=== PATIENT | male | born 1940 | race Caucasian/White ===

== ENCOUNTER 2024-03-29 22:31 | Inpatient (IN) | payer MEDICARE, BC, SELFPAY ==
[2024-03-29 18:08] VITALS: BP 157/91
[2024-03-29 18:19] LABS: Glucose - Point of Care 238 mg/dl (70-99)
[2024-03-29 18:48] LABS: % Basophils 0.3 % (0-2); % Immature Granulocytes 0.4 % (0-0.5); % Lymphocytes 5.3 % (20.5-51.1); % Monocytes 5.3 % (1.7-9.3); % Neutrophils 88.7 % (42.2-75.2); Absolute Lymphocytes 0.6 10^3/uL (1.2-3.4); Absolute Monocytes 0.6 10^3/uL (0.1-0.6); Absolute Neutrophils 9.8 10^3/uL (1.4-6.5); Hematocrit 32.9 % (39.0-52.0); Hemoglobin 11.3 g/dL (13.0-18.0); Mean Corp Hgb Conc. 34.3 g/dL (33.0-37.0); Mean Corpuscular Volume 90.4 fL (80.0-94.0); Nucleated Red Blood Cells % 0 % (-); Platelet Count 128 10^3/uL (130-400); Red Blood Cell Count 3.64 10^6/uL (4.70-6.10); Red Cell Dist. Width 13.4 % (11.5-14.5); White Blood Cell Count 11.1 10^3/uL (4.8-10.8)
[2024-03-29 18:49] LABS: Urine Albumin 1+ (Neg - Trace); Urine Bilirubin Negative (Negative); Urine Character Clear (Clear); Urine Color Yellow; Urine Glucose Trace (Negative); Urine Ketone 1+ (Negative); Urine Leukocyte Negative (Negative); Urine Nitrite Negative (Negative); Urine Occult Blood 3+ (Negative); Urine Urobilinogen Negative (Neg - 1+)
[2024-03-29 19:03] LABS: ALT (SGPT) 30 U/L (0-50); AST (SGOT) 43 U/L (17-59); Albumin 4.1 g/dl (3.5-5.0); Alkaline Phosphatase 72 U/L (38-126); Blood Urea Nitrogen 31 mg/dl (9-20); Carbon Dioxide 21 mmol/L (22-30); Chloride 99 mmol/L (98-107); Glucose 230 mg/dl (70-99); Lactic Acid 5.1 mmol/L (0.7-2.0); Potassium 4.2 mmol/L (3.5-5.1); Sodium 134 mmol/L (135-145); Total Bilirubin 1.1 mg/dl (0.2-1.3); Total Protein 7.1 g/dl (6.3-8.2); Urine Red Blood Cell 0-2 /HPF (0-2); Urine White Cell 0-2 /HPF (0-5); eGFR 49.56
--- NOTE | 2024-03-29 19:06 | ED.GENMED ---
History of Present Illness
General
Chief Complaint: Fever
Source: patient and spouse
Exam Limitations: none
Time Seen by Provider: 03/29/24 18:27
Nursing documentation reviewed up to this point in time: agreed with
History of Present Illness
History of Present Illness:
The patient is an 84-year-old man who reports that he felt dizzy and fell onto the floor. He denies hitting his head. He denies any injury from the fall. He denies neck and back pain. Patient denies chest pain. His reports that the patient
has been more sleepy and eating less than usual for about 2 days. Patient found to have a fever in the emergency department. Patient appears short of breath but states that this is how he always breathes. He denies abdominal pain, nausea,
vomiting and diarrhea. He denies headache and sore throat. He denies sick contacts.
Past History
Past History
ED Past Medical History: CAD, HTN, NIDDM and Other (Aortic stenosis)
ED Past Surgical History: Orthopedic (Arm surgery)
Social History
Tobacco: Non-smoker
Alcohol: None
Drug: None
Personal:
Living: with family
Employment: Retired
Family History
Family History: Diabetes
Review of Systems
Review of Systems
Allergies reviewed?: Yes
All Other Systems: ROS reviewed and negative except as documented in HPI and ROS
Constitutional: Reports fever and fatigue
EENT: Reports no symptoms
Respiratory: Reports no symptoms
Cardiac: Reports no symptoms
ABD/GI: Reports anorexia
: Reports no symptoms
Musculoskeletal: Reports no symptoms
Skin: Reports no symptoms
Neurological: Reports dizzy
Endocrine: Reports no symptoms
Hematologic/Lymphatic: Reports no symptoms
Psychiatric: Reports no symptoms
Phy Exam
Physical Exam
Physical Exam:
Physical Exam
General: no apparent distress, not acutely ill. Atraumatic appearing face and head
Neck: supple. no meningeal signs. normal psoterior pharynx, nontender C-spine
Heart: Tachycardic
Lungs: Mild tachypnea. Decreased breath sounds bilaterally
Abdomen: normal bowel sounds. not tender. no CVAT
Neuro: alert and orientedx3. no focal neurological deficits
Skin: no rash
Psychiatric: well kept. interactive and cooperative
Extremities: no edema. no calf tenderness. negative homans. good distal pulses
Course
Orders/Labs/Results
Orders:
Orders
03/29/24 18:27
Acetaminophen [Tylenol] 1,000 mg .ROUTE .STK-MED ONE
03/29/24 18:38
Electrocardiogram (*1) Urgent
Reason for Study: Other
Other Reason for Exam: Possible Sepsis
Cardiac Monitoring- Treatment ONCE
EKG- Treatment ONCE
IV Insert/Care/Rem.- Treatment PRN
Straight cath- Treatment ONCE
O2 Therapy [RESP] Urgent
Titrate/Wean O2 to maintain O2 sat greater than (%): 93
Special Instructions: TO MAINTAIN CONTINUOUS O2 SATS > OR = 93%
Pulse Ox/cont/shift [RESP] Urgent
Quantity: 1
Special Instructions: CONTINUOUS
03/29/24 18:41
Complete Blood Count/With Diff Urgent
Comprehensive Metabolic Panel Urgent
Lactic Acid Q4H
Comment: ON ICE, CANCEL 2ND ORDER IF FIRST LACTIC ACID LEVEL <2
Urinalysis Reflex To Culture Urgent
Date Specimen was Collected: 03/29/24
Time Specimen was Collected: 18:38
Urine Microscopic Reflex Cult Urgent
Blood Culture Q30M
FLORA Source: Blood/Venous
Specimen Description:
Comment: FROM 2 SEPARATE SITES
Blood Culture Q30M
FLORA Source: Blood/Venous
Specimen Description:
Comment: FROM 2 SEPARATE SITES
03/29/24 19:00
CR Chest - 2 Views Urgent
Comment:
Reason For Exam: fever
03/29/24 19:38
0.9% Sodium Chloride 1000 ml [Nss] 2,000 ml IV BOLUS
03/29/24 19:[address] Non Medication Order As Directed
Physician Order: height/weight/BMI
Above order entered?: Yes
03/29/24 19:53
NT-proBNP Urgent
Troponin I Urgent
03/29/24 21:45
COVID-19 Antigen Urgent
Source: Nasal Swab
Influenza A+B Rapid Molecular Urgent
FLORA Source: Nasal Swab
Specimen Description:
03/29/24 21:51
CRP [C-Reactive Protein] Routine
ESR [Erythrocyte Sed Rate] Routine
03/29/24 22:00
Flush (0.9% Sodium Chloride) [Flush (Nss)] See Dose Instructions IV PER PROTOCOL
03/29/24 22:21
Admit/Transfer Patient As Directed
Co-Sign Provider:
Level of Care: Inpatient admission
Assign to:: IMU- Intermediate Care
Physician / Group: [email or web address]
Diagnosis: SIRS suspect severe sepsis of unclear origin, NIMI, MARCOS
Reason for Hospitalization: SIRS suspect severe sepsis of unclear origin, NIMI, MARCOS
Expected length of stay greater than two midnights?: Yes
ELOS- Estimated Length of Stay in days: 5
I certify the patient meets the requirements for IP care: Yes
03/29/24 22:23
Code Status As Directed
Resuscitation Status: Full Code
Vancomycin [Vancocin] 2,000 mg 0.9% Sodium Chloride 500 ml [Nss] 500 ml IV NOW
03/29/24 22:24
Piperacillin/Tazo 4.5 Gram [Zosyn] 4.5 gram in 100 ml IV NOW
03/29/24 22:36
Lactic Acid Q4H
Comment: ON ICE, CANCEL 2ND ORDER IF FIRST LACTIC ACID LEVEL <2
Abnormal Lab Results
03/29/24 03/29/24 03/29/24
18:18 18:41 19:53
WBC 11.1 H 10^3/uL
(4.8-10.8)
RBC 3.64 L 10^6/uL
(4.70-6.10)
Hgb 11.3 L g/dL
(13.0-18.0)
Hct 32.9 L %
(39.0-52.0)
Plt Count 128 L 10^3/uL
(130-400)
Absolute Neuts (auto) 9.8 H 10^3/uL
(1.4-6.5)
Absolute Lymphs (auto) 0.6 L 10^3/uL
(1.2-3.4)
Neutrophils % 88.7 H %
(42.2-75.2)
Lymphocytes % 5.3 L %
(20.5-51.1)
Sodium 134 L mmol/L
(135-145)
Carbon Dioxide 21 L mmol/L
(22-30)
BUN 31 H mg/dl
(9-20)
Creatinine 1.4 H mg/dL
(0.7-1.3)
Glucose 230 H mg/dl
(70-99)
Lactic Acid 5.1 H* mmol/L
(0.7-2.0)
Troponin I 0.236 H* ng/ml
Urine Ketones 1+ A
(Negative)
Ur Occult Blood Reflex 3+ A
(Negative)
Urine Glucose Trace A
(Negative)
Urine Albumin (Reflex) 1+ A
(Neg - Trace)
POC Glucose 238 H mg/dl
(70-99)
03/29/24 18:41
03/29/24 18:41
Vital Signs
Initial and Last Documented VS:
Initial Vital Signs
Temp Pulse Resp BP Pulse Ox
103.0 F H 105 28 157/91 93
03/29/24 18:08 03/29/24 18:08 03/29/24 18:08 03/29/24 18:08 03/29/24 18:08
Last Documented Vital Signs
Temp Pulse Resp BP Pulse Ox
103.0 F H 81 24 119/51 93
03/29/24 18:08 03/29/24 22:15 03/29/24 22:15 03/29/24 20:40 03/29/24 22:15
MDM/Problems Addressed
Differential Diagnosis Includes:
Sepsis from UTI, pneumonia, viral illness
MDM/Problems Addressed:
Patient presents with increased sleepiness and fever that is acute
Chronic conditions affecting care: HTN
Acute Exacerbation and/or Progression of Chronic Illness: HTN
*Radiology
Radiology exam reviewed: preliminary read by ED provider (Chest x-ray read by me. No acute disease) and radiology read reviewed
*Pulse Oximetry
Patient hypoxic: no
*EKG
Interpreted by ED Provider?: Yes
Interpretation: abnormal
Comparison EKG: changes noted
Rate: tachycardiac
Rhythm: sinus
[place]: left axis deviation
Interval: normal interval
QRS Pattern: left bundle branch block and left vent hypertrophy
Ischemia: non-specific ST changes
*Tray Filler Interpretation
Rate: tachycardiac
Interpretation: abnormal
Rhythm: sinus
*Critical Care Note
Total Time (30-74mins, 75-104mins- exclusive of procedures): 35 minutes
comment:
35 minutes of critical care given to the patient including frequent reassessments of his heart rate, blood pressure, reviewing his lab work, chest x-ray and counseling the patient and his
Data Reviewed
Review of Other/Old Records Reveals: Discharge Summary ( discharge summary reviewed from 06/2021 which shows patient has a history of left bundle branch block)
Source: patient and family
ED Attending Note
-
Portions of this chart may have been created with voice recognition software.� Occasional wrong word or��sound alike� substitutions may have occurred due to the inherent limitations of voice recognition software.
Discharge Plan
Departure
Patient Disposition: Admit
Date of Disposition: 03/29/24
Time of Disposition: 21:32
Admit to: Telemetry
Presentation/result/management discussed w/ accepting MD/DO: Hospitalist
Patient with high blood pressure during this ER visit?: Yes
Condition: Good
Covid-19: Negative COVID-19
Discharge Problem:
Acute febrile illness, Acidosis, lactic, Elevated troponin
Interventions
Interventions:
*Risk Screen - Suicide Last Done: 03/29/24 18:40
*General Assessment Last Done: 03/29/24 18:08
*Neglect/Abuse Screening Last Done: 03/29/24 18:40
ED- Fall Risk Assessment Last Done: 03/29/24 18:40
*ED COVID-19 Vaccine History Last Done: 03/29/24 18:08
ED- Neurological Assessment Last Done: 03/29/24 18:40
ED-Skin Assessment Last Done: 03/29/24 18:40
[2024-03-29 20:22] VITALS: BMI 34.6
[2024-03-29 20:26] LABS: NT-proBNP 958 pg/ml; Troponin I 0.236 ng/ml
[2024-03-29 20:40] VITALS: BP 119/51
[2024-03-29] MEDS: NSS 2000 IV (20:56)
--- NOTE | 2024-03-29 22:10 | HPS.HSE ---
Family Physician
-
Family Physician: Homar Mcneill
Chief Complaint
-
Dizziness and fall and sleepiness
History of Present Illness
84M HX CAD, T2DM, HTN , TAVR seen at ER for fall and diziness at home.
Evaluation of fall and dizziness at home.
- denied head strike
- per , patient has been lethargic and decrease PO intake
At ER
T max 103 POx 91 - 93
Unremarkable CXR
Unremarkable UA
BCx tomes two sent
ROS
He denies abdominal pain, nausea, vomiting and diarrhea.
Medical History
Past Medical History
Past Medical History: Reports CAD, HTN, Hypercholesterolemia, NIDDM and Valvular Disease (29 Evolut TAVR with peak/mean gradients of 26/13 mmHg, respectively. AV Dimensionless Index is 0.5. Mild paravalvular aortic regurgitation. )
Past Surgical History: Reports Cardiac (29 Evolut TAVR with peak/mean gradients of 26/13 mmHg, respectively. AV Dimensionless Index is 0.5. ) and Orthopedic
Social History
Tobacco: Non-smoker
Alcohol: None
Personal:
Living: With Family
Family History
Family History: Diabetes
Allergies / Home Medications
Allergies reflects when Allergies were last updated in [employer].
Home Medications with original date entered in [employer]
Allergy/Medication List:
Allergies
Allergy/AdvReac Type Severity Reaction Status Date / Time
Tetanus Vaccines and Toxoid Allergy Swelling Verified 03/29/24 18:13
Home Medications
aspirin 81 mg tablet,delayed release 81 mg PO DAILY Blood clot prevention/tx 01/02/11
atorvastatin 40 mg tablet 40 mg PO QPM High cholesterol 10/11/17
chlorthalidone 25 mg tablet 25 mg PO QPM Antihypertensive; 02/10/21
losartan 100 mg tablet (Cozaar) 100 mg PO DAILY Blood pressure 02/10/21
vitamin K2 100 mcg capsule 100 mcg PO DAILY Supplement 02/10/21
metformin 500 mg tablet,extended release 24 hr 1,000 mg (2 x 500 mg) PO BID@0800,1700 Diabetes ##0 07/03/21
amlodipine 5 mg tablet 5 mg PO DAILY 03/29/24
carvedilol 3.125 mg tablet 3.125 mg PO BID 03/29/24
cholecalciferol (vitamin D3) 50 mcg (2,000 unit) tablet 50 mcg PO DAILY 03/29/24
cyanocobalamin (vitamin B-12) 1,000 mcg tablet 1,000 mcg PO DAILY 03/29/24
multivitamin 1 tab PO DAILY 03/29/24
vitamin A 2,400 mcg capsule 2,400 mcg PO DAILY 03/29/24
zinc sulfate 50 mg zinc (220 mg) tablet 50 mg PO DAILY 03/29/24
Review of Systems
-
Constitutional: Reports Fever and Fatigue
EENT: Reports No Symptoms
Respiratory: Reports No Symptoms
Cardiac: Reports No Symptoms
Abdomen/GI: Reports No Symptoms
: Reports No Symptoms
Musculoskeletal: Reports No Symptoms
Skin: Reports No Symptoms
Neurological: Reports Dizzy
Endocrine: Reports No Symptoms
Hematologic/Lymphatic: Reports No Symptoms
Psych: Reports Other (lethargic )
Physical Exam
Vital Signs
Vital Signs
Temp Pulse Resp BP Pulse Ox
103.0 F H 88 24 119/51 93
03/29/24 18:08 03/29/24 20:45 03/29/24 20:45 03/29/24 20:40 03/29/24 20:45
Physical Exam
General: Well Developed, Well Nourished, No Apparent Distress, Comfortable and Conversant; No Respiratory Distress or Pain
HEENT: Anicteric and Moist mucous membranes
Respiratory: Clear
Cardiac: S1/S2 and Regular Rhythm
Breast: Deferred by me
GI: Soft, Non Tender, Non Distended and Normal Bowel Sounds
Rectal: Deferred by Provider
Genito-urinary: Deferred by me
Musculoskeletal: Edema, Right Upper Extremity and Edema, Left Lower Extremity
Skin: Warm and Dry; No Rash
Neuro: AO x 3
Psych: Calm
Laboratory Results
-
03/29/24 18:41
03/29/24 18:41
Laboratory Results
Lactic Acid 5.1 mmol/L (0.7-2.0) H* 03/29/24 18:41
Total Bilirubin 1.1 mg/dl (0.2-1.3) 03/29/24 18:41
AST 43 U/L (17-59) 03/29/24 18:41
ALT 30 U/L (0-50) 03/29/24 18:41
Alkaline Phosphatase 72 U/L (38-126) 03/29/24 18:41
Troponin I 0.236 ng/ml H* 03/29/24 19:53
Data Reviewed
-
Diagnostic Radiology: Report Reviewed by me
Medical Tests (Nuc Med, Echo, EKG etc): Report Reviewed by me
Lab Data: Labs Reviewed by me
Old Records: Reviewed
Impression/Plan
-
Reviewed VS: T 103 HR 88 BP 119/50 RR24 POx 91 - 93
Data
WCC 11.1
Hgb 11.3 - baseline is mid 10s
Plt 128 - baseline is normal
Na 134
CO2 21
BUN 31
Cr 1.4 - baseline is 1.1 - 1.3
e GFR 49
BG 230
LA 5.1
Nl LFts
TPNI 0.236
pro BNP 958
UA is unbearable
BCx sent
Flu and Covid are pending
03/29/24 CXR:
Low lung volumes.
No focal parenchymal opacification to suggest pneumonia.
EKG report
UNUSUAL P AXIS, POSSIBLE ECTOPIC ATRIAL TACHYCARDIA
LEFT AXIS DEVIATION
LEFT BUNDLE BRANCH BLOCK
ABNORMAL ECG
WHEN COMPARED WITH ECG OF 31-JUL-2021 08:20,
ECTOPIC ATRIAL RHYTHM HAS REPLACED SINUS RHYTHM
LEFT BUNDLE BRANCH BLOCK IS NOW PRESENT
12/16/22 ECHO
LVEF 61
Mild MR
29 Evolut TAVR with peak/mean gradients of 26/13 mmHg, respectively. AV Dimensionless Index is 0.5. Mild paravalvular aortic regurgitation. Compared to the previous echo from December 2021, there is no significant change.
NO PRIOR hospitalist admission:
ASSESSMENT & PLAN
Pending Rx reconciliation
Eval for severe sepsis with LA 5
SIRS picture but unclear origin DDx: acute viral illness, Endocarditis, occult PNA
Associated mild thrombocytopenia due to severe sepsis
- associated with acute hypoactive encephalopathy
- UA is unbearable
- CXR is unremarkable
- BCx x2
- check Covid
- check ESR and CRP
- held any anti HTN Meds
- LR IVF
- Empiric IV Vanco and Zosyn
- fall precaution
- ID consult
Lethargic acute encephalopathy due to sepsis , MARCOS
- fall precaution
- Observe MS with Tx of sepsis
MARCOS due to sepsis
- LR IVF
- Trend Cr
- Held chlorthalidone ,Losartan and Carvedilol
- Trend Cr
Significant TPNI elevation : NIMI vs NSTEMI
Ectopic AT per EKG
Denied CP
HX CAD with single stent
HLD
-cont CLERICAL SUPPORT SPECIALIST baby ASA and Statin
- DCA card consult
HX valvular heart dz
29 Evolut TAVR with peak/mean gradients of 26/13 mmHg, respectively.
AV Dimensionless Index is 0.5.
Mild paravalvular aortic regurgitation.
- await Card evaluation
Realtive hypotension due to sepssi
essential HTN
- IVF
-Held Losartan and Carvedilol
NIDDM
- held Metformin
- add ISS low
DVT Px: LMWH
Code: Full code
IMU
[2024-03-29 22:11] LABS: COVID-19 Antigen Negative (Negative)
[2024-03-29 22:57] LABS: Lactic Acid 2.1 mmol/L (0.7-2.0)
[2024-03-29 23:00] VITALS: BP 132/63
[2024-03-29 23:24] VITALS: BP 120/67
--- NOTE | 2024-03-29 23:30 | PTCARENOTE ---
admit to 3349 imu- ax3- sinus bbb- bp wnl- afebrile- abx and fluids hung- pt expresses feeling much better- chest pain free- no distress- plan of care reviewed with pt and family.
[2024-03-29 23:31] VITALS: BMI 34.5
[2024-03-30] VITALS (13 sets, daily range): BP systolic 110–166; BP diastolic 59–151; BMI 34.5
[2024-03-30] MEDS: VANCOCIN 300 MG IV (00:06)
[2024-03-30] MEDS: VANCOCIN 300 ML IV (00:06)
[2024-03-30] MEDS: LR 1000 IV ×2 (00:06→12:56)
[2024-03-30 00:59] LABS: Erythrocyte Sed Rate 38 mm/hour (0-20)
[2024-03-30] MEDS: ZOSYN 50 IV ×2 (02:42→09:05)
--- NOTE | 2024-03-30 03:24 | PTCARENOTE ---
several attempts made to get lab draws by three different staff members- will ask phlebotomy to draw
--- NOTE | 2024-03-30 03:47 | PTCARENOTE ---
pt with fever of 103 and tachycardia- bp stable- tylenol given see mar
[2024-03-30] MEDS: TYLENOL 650 MG PO (03:48)
--- NOTE | 2024-03-30 03:52 | PTCARENOTE ---
desating to mid 80's with fever. no resp distress- lungs are diminished. 2 liters oxygen placed to maintain sats
[2024-03-30 09:01] LABS: Glucose - Point of Care 181 mg/dl (70-99)
[2024-03-30] MEDS: NOVOLOG FLEXPEN-LOW RESISTANCE 1 UNITS SC (09:05)
[2024-03-30] MEDS: ASPIR LOW (ENTERIC COATED) 81 MG PO (09:05)
[2024-03-30] MEDS: DESENEX/MITRAZOL/ZEASORB 1 APPLIC TOPICAL ×2 (09:05→20:34)
[2024-03-30 09:16] LABS: % Basophils 0.2 % (0-2); % Eosinophils 0.1 % (0-6); % Immature Granulocytes 0.4 % (0-0.5); % Lymphocytes 9.3 % (20.5-51.1); % Monocytes 8.3 % (1.7-9.3); % Neutrophils 81.7 % (42.2-75.2); Absolute Lymphocytes 0.9 10^3/uL (1.2-3.4); Absolute Monocytes 0.8 10^3/uL (0.1-0.6); Absolute Neutrophils 7.5 10^3/uL (1.4-6.5); Hematocrit 28.6 % (39.0-52.0); Hemoglobin 9.9 g/dL (13.0-18.0); Mean Corp Hgb Conc. 34.6 g/dL (33.0-37.0); Mean Corpuscular Hgb 31.3 pg (27.0-31.0); Mean Corpuscular Volume 90.5 fL (80.0-94.0); Nucleated Red Blood Cells % 0 % (-); Platelet Count 112 10^3/uL (130-400); Red Blood Cell Count 3.16 10^6/uL (4.70-6.10); Red Cell Dist. Width 13.4 % (11.5-14.5); White Blood Cell Count 9.2 10^3/uL (4.8-10.8)
--- NOTE | 2024-03-30 09:20 | PTCARENOTE ---
Patient received from manager shift. Patient resting comfortably in bed. AAO (much improved since admission), VSS. No events noted overnight. No complaints of pain at this time. IVF through IV. Continuing ABX. Labs to be drawn. Call garcia in
reach.
[2024-03-30 09:30] LABS: Lactic Acid 1.4 mmol/L (0.7-2.0)
[2024-03-30 09:33] LABS: ALT (SGPT) 30 U/L (0-50); AST (SGOT) 59 U/L (17-59); Albumin 3.2 g/dl (3.5-5.0); Alkaline Phosphatase 55 U/L (38-126); Blood Urea Nitrogen 29 mg/dl (9-20); Calcium 8.8 mg/dl (8.4-10.2); Carbon Dioxide 25 mmol/L (22-30); Chloride 104 mmol/L (98-107); Estimated Creatinine Clearance 54 ml/min; Glucose 151 mg/dl (70-99); Sodium 135 mmol/L (135-145); Total Bilirubin 1.2 mg/dl (0.2-1.3); Total Protein 5.9 g/dl (6.3-8.2); eGFR 54.17
[2024-03-30 09:44] LABS: Troponin I 0.281 ng/ml
--- NOTE | 2024-03-30 10:02 | CON.ID ---
Consultation
-
Date/Time Consultation Requested: 03/29/24 23:17
Date/Time Consultation Performed: 03/29/24 10:03
Requesting Provider: Dr Zhou
Performing Provider: Dr Samano
Reason for Consultation: SIRS suspect severe sepsis of unclear origin, NIMI, MARCOS
Chief Complaint / Past History
Chief Complaint
Dizziness and fall and sleepiness
History of Present Illness
Mr Flynn is an 84 year old male with history of TAVR, CAD, who presented to the ER on 03/29 for chills, fall, dizziness, lethargy with poor oral intake at home. No head strike. No chest pain. Lethargy and poor oral intake x2 days. Denied:
abdominal pain, nausea, vomiting, diarrhea, headache and sore throat. He denied sick contacts. Last dental exam was about 1 year ago before TAVR done. Never had colonoscopy or other screening for colorectal cancer.
Since arrival here tmax 103 orally, BP overall stable, HR occasionally in the low 100s, tachypneic to 30s, wbc initially 11 now 9.2, hgb 9.9, plt 112, L shift is noted, eos are minimally present, cr initially 1.4 now 1.3, lactic acid initially 5.1
now 1.4, crp 208, minimally elevated troponins, bnp 958, ua no pyuria, covid ag neg, 03/29 CXR: no infiltrates, blood cultures x2 obtained at the same time with gpcs in chains patient is currently on zosyn only, had previous dose of vancomycin.
Coughing during my exam - nonproductive. No sore throat. Reports cough started today. ID is consulted for assistance with management.
Past History
Additional Past Medical History:
CAD, HTN, NIDDM and Aortic stenosis)
Additional Past Surgical History:
Arm surgery
TAVR
Allergy History:
Tetanus Vaccines and Toxoid Allergy (Verified 03/29/24 18:13)
Swelling
Medications Reviewed: Yes
Social History
Tobacco: Non-Smoker
Alcohol: None
Personal:
Family History
Family History: Not Pertinent
Review of Systems
Review of Systems
General: Fever
All systems: All other systems were reviewed and were negative
Vital Signs
Temp Pulse Resp BP Pulse Ox
98.1 F 91 29 110/66 95
03/30/24 07:22 03/30/24 06:00 03/30/24 06:00 03/30/24 06:00 03/30/24 06:00
Physical Exam
Physical Exam
Constitutional: No Acute Distress and Obese
Cardiovascular: Regular Rate and S1/S2; Negative Murmur or Rub
Pulmonary: Clear and Symmetric; Negative Wheezes, Rales or Rhonchi
Gastrointestinal: Soft, Non Tender, Non Distended and Normal Bowel Sounds
Extremities: Other (no osler nodes; edema 2+ of the feet, trace of the lower extremities); Negative [place] Lesions
Skin: Warm and Dry; Negative Rash or Jaundice
Neurological: AO x 3
Psychological: Calm
Lab / Diagnostic Study Results
03/30/24 09:01
03/30/24 09:01
Abs Immat Gran (auto) 0.0 10^3/uL (0-0.05) 03/30/24 09:01
Absolute Neuts (auto) 7.5 10^3/uL (1.4-6.5) H 03/30/24 09:01
Absolute Lymphs (auto) 0.9 10^3/uL (1.2-3.4) L 03/30/24 09:01
Absolute Monos (auto) 0.8 10^3/uL (0.1-0.6) H 03/30/24 09:01
Absolute Basos (auto) 0.0 10^3/uL (0-0.2) 03/30/24 09:01
Immature Gran % 0.4 % (0-0.5) 03/30/24 09:01
Neutrophils % 81.7 % (42.2-75.2) H 03/30/24 09:01
Lymphocytes % 9.3 % (20.5-51.1) L 03/30/24 09:01
Monocytes % 8.3 % (1.7-9.3) 03/30/24 09:01
Eosinophils % 0.1 % (0-6) 03/30/24 09:01
Basophils % 0.2 % (0-2) 03/30/24 09:01
ESR Cancelled 03/29/24 21:51
Lactic Acid 1.4 mmol/L (0.7-2.0) 03/30/24 09:01
C-Reactive Protein Cancelled 03/29/24 21:51
Microbiology Results
Micro:
03/29/24 18:41 Blood Culture - Preliminary
Blood/Venous Positive culture in progress
Gram Stain - Final
03/29/24 18:41 Blood Culture - Preliminary
Blood/Venous Positive culture in progress
Gram Stain - Final
03/29/24 21:45 Influenza Types A & B (JOSE LUIS) - Final
Nasal Swab Negative for Influenza A & B, NAAT
Negative results must be combined with clinical observations
and patient history.
Nucleic Acid Amplification test (NAAT)performed on the
[employer] platform.
Assessment / Plan
Fever
Gram positive bacteremia
TAVR
- gpcs in justin and chains: strep, enterococcus - possible contaminant with blood cultures done at the same time
- repeat blood cultures x2
- CXR without infiltrates, UA without pyuria, covid ag negative
- strep pneumo urine antigen
- orthopantogram and tte
- start ampicillin, stop zosyn
- follow clinically
Care Review
Plan reviewed with: Physician (Dr Hawkins)
--- NOTE | 2024-03-30 10:25 | PHA.VAN.IN ---
Assessment
- Assessment
Renal Function: Appears elevated from baseline
Renal Function may be Overestimated due to: Obesity. BMI = 34.5
Maximum Temperature: 103
Minimum Temperature: 98.1
Concomitant Antimicrobials: Piperacillin-tazobactam
AUC Dosing Plan
- Dosing Variables
Dosing Weight (kg): 112
Dosing CrCl (ml/min): 54
Vd coefficient (L/kg): 0.6
- Empiric Dosing
Initial / Loading Dose: Vanc 1500mg 03/30 at 0006 and 500mg administration pending
Maintenance Regimen: Vanc 1500mg IV q24H. Begin 03/31
Estimated AUC (mcg*h/mL): 470
Estimated Peak (mcg*h/mL): 32.2
Estimated Trough (mcg/ml): 10.6
Estimated Half Life (H): 14.1
- Monitoring
No levels ordered at this time: Consider levels after 04/02 0600 dose
Pharmacokinetics Vancomycin I
- -
Patient Age: 84
Patient Sex: Male
Vancomycin Day #: 1
Indication: Other
Requesting Provider: Winnie
Height / Weight:
Height 5 ft 11 in
Actual Weight 112.292 kg
IBW in k.3
Adjusted BW in k.1
Pertinent Past Medical History: MARCOS. BMI = 34.5
- Vital Signs / Lab Results
Temp Pulse Resp BP Pulse Ox
98.1 F 91 29 110/66 95
03/30/24 07:22 03/30/24 06:00 03/30/24 06:00 03/30/24 06:00 03/30/24 06:00
Lab Results - Hematology
03/29/24 03/30/24
18:41 09:01
WBC 11.1 H 9.2
Lab Results - Chemistry
03/29/24 03/30/24
18:41 09:01
BUN 31 H 29 H
Creatinine 1.4 H 1.3
Estimated Creat Clear 54
Albumin 4.1 3.2 L
03/29/24 03/29/24 03/29/24
18:41 22:36 23:17
Lactic Acid 5.1 H* 2.1 H Cancelled
03/30/24 03/30/24
02:30 09:01
Lactic Acid Cancelled 1.4
Lab Results - Urine
03/29/24
18:41
Urine Nitrite (Reflex) Negative
Leukocyte Esterase Rfl Negative
Urine WBC (Reflex) 0-2
Microbiology Results
03/29/24 18:41 Blood Culture - Preliminary
Blood/Venous Positive culture in progress
Gram Stain - Final
03/29/24 18:41 Blood Culture - Preliminary
Blood/Venous Positive culture in progress
Gram Stain - Final
03/29/24 21:45 Influenza Types A & B (JOSE LUIS) - Final
Nasal Swab Negative for Influenza A & B, NAAT
Negative results must be combined with clinical observations
and patient history.
Nucleic Acid Amplification test (NAAT)performed on the
[employer] platform.
[2024-03-30 12:00] LABS: Glycohemoglobin (HgbA1c) 6.8 % (4.0-5.6)
[2024-03-30] MEDS: NOVOLOG FLEXPEN-LOW RESISTANCE 2 UNITS SC (12:56)
[2024-03-30] MEDS: AMPICILLIN 108 MG IV ×2 (12:59→20:34)
[2024-03-30] MEDS: VANCOCIN HCL 500 MG 100 IV (12:59)
[2024-03-30 13:02] LABS: Glucose - Point of Care 222 mg/dl (70-99)
--- NOTE | 2024-03-30 13:09 | W.PN.HOSP.TC ---
Today's Communication/Plan
-
Monitor vital signs and see plan
Continue to trend troponin, if continues to rise then will get cardiology evaluation
TTE on Monday, if concerning then will need BRANDON
Check new sets of blood culture
Continue with antibiotics per infectious disease
Assessment / Plan
Assessment / Plan
General: Well Developed, Well Nourished, No Apparent Distress, Comfortable and Conversant
HEENT: Anicteric and Moist mucous membranes
Respiratory: Clear
Cardiac: S1/S2 and Regular Rhythm
GI: Soft, Non Tender, Non Distended and Normal Bowel Sounds
Musculoskeletal: Edema, Right Upper Extremity and Edema, Left Lower Extremity
Neuro: AO x 3
Psych: Calm
Severe sepsis with gram-positive bacteremia
Positive blood culture from admission, repeat blood culture
Appears possible strep. Check urine strep antigen
COVID, flu negative
ID following
check Echocardiogram, if concerning then will need cardiology evaluation for BRANDON given history of TAVR with concern of endocarditis
- UA without UTI
- CXR is unremarkable
IVF
Continue with antibiotics per infectious disease
Lactic acidosis on admission
Resolved
Elevated troponin likely nonischemic myocardial injury
Denies any chest pain
Does have history of CAD with stent
Trend troponin, if continues to rise then will get cardiology evaluation
cw ASA
Thrombocytopenia
Monitor
Suspect TME secondary to sepsis
now improving, monitor
MARCOS
cw IVF
- Trend Cr
- Held chlorthalidone ,Losartan and Carvedilol
HLD
-cont [employer] baby ASA and Statin
HX valvular heart dz
s/p TAVR
monitor
echo
Last echo in 12/29 with EF 61%, mild MR,TAVR with peak/mean gradients of 26/13 mmHg, respectively. AV
Dimensionless Index is 0.5. Mild paravalvular aortic regurgitation
Relative hypotension due to sepsis
essential HTN
- IVF
-Held Losartan and Carvedilol
NIDDM
- held Metformin
- add ISS low
A1c 6.8
DVT Px: LMWH
Code: Full code
I spent a total of 51 minutes with the patient or on the floor. More than 50% of this time involved counseling and coordination of care.
Anticipated Discharge: > 48 hours
Subjective/Interval History
-
Date of Service: March 30, 2024
denies pain
Objective Data
-
Labs:
Laboratory Results
03/30/24
09:01
WBC 9.2
Hgb 9.9 L
Hct 28.6 L
Plt Count 112 L
Sodium 135
Potassium 4.0
Chloride 104
Carbon Dioxide 25
BUN 29 H
Creatinine 1.3
Glucose 151 H
Calcium 8.8
Total Bilirubin 1.2
AST 59
ALT 30
Alkaline Phosphatase 55
Vital Signs:
Vital Signs
Temp Pulse Resp BP Pulse Ox
98.5 F 91 29 110/66 94
03/30/24 11:30 03/30/24 06:00 03/30/24 06:00 03/30/24 06:00 03/30/24 10:53
I&O
03/29/24 03/30/24 03/31/24
06:59 06:59 06:59
Intake Total 1560 / 1560
Output Total 800 / 800 300 / 300
Balance 760 / 760 -300 / -300
[2024-03-30 14:06] LABS: Troponin I 0.218 ng/ml
[2024-03-30] MEDS: AMPICILLIN IV (16:33)
[2024-03-30 17:36] LABS: Glucose - Point of Care 139 mg/dl (70-99)
[2024-03-30] MEDS: NOVOLOG FLEXPEN-LOW RESISTANCE SC (17:36)
[2024-03-30] MEDS: LIPITOR 40 MG PO (18:19)
[2024-03-30] MEDS: LOVENOX 40 MG SC (18:19)
[2024-03-30] MEDS: COREG 3.125 MG PO (20:34)
[2024-03-30 21:36] LABS: Glucose - Point of Care 197 mg/dl (70-99)
[2024-03-31] VITALS (12 sets, daily range): BP systolic 111–170; BP diastolic 49–94; BMI 35.3
[2024-03-31] MEDS: AMPICILLIN 108 MG IV ×6 (00:09→19:54)
[2024-03-31] MEDS: LR 1000 IV (03:22)
[2024-03-31] MEDS: TYLENOL 650 MG PO ×2 (03:46→19:59)
[2024-03-31] MEDS: VANCOCIN 300 ML IV (05:10)
[2024-03-31] MEDS: VANCOCIN 300 MG IV (05:10)
[2024-03-31 06:08] LABS: ALT (SGPT) 31 U/L (0-50); AST (SGOT) 47 U/L (17-59); Albumin 3.1 g/dl (3.5-5.0); Alkaline Phosphatase 66 U/L (38-126); Blood Urea Nitrogen 25 mg/dl (9-20); Calcium 9.1 mg/dl (8.4-10.2); Carbon Dioxide 24 mmol/L (22-30); Chloride 102 mmol/L (98-107); Estimated Creatinine Clearance 64 ml/min; Glucose 172 mg/dl (70-99); Potassium 3.9 mmol/L (3.5-5.1); Sodium 135 mmol/L (135-145); Total Bilirubin 0.9 mg/dl (0.2-1.3); Total Protein 5.7 g/dl (6.3-8.2); eGFR > 60.00
[2024-03-31 06:09] LABS: % Basophils 0.3 % (0-2); % Eosinophils 2.7 % (0-6); % Immature Granulocytes 0.4 % (0-0.5); % Lymphocytes 10.2 % (20.5-51.1); % Monocytes 13.2 % (1.7-9.3); % Neutrophils 73.2 % (42.2-75.2); Absolute Eosinophils 0.2 10^3/uL (0-0.7); Absolute Lymphocytes 0.8 10^3/uL (1.2-3.4); Absolute Neutrophils 5.4 10^3/uL (1.4-6.5); Hematocrit 27.3 % (39.0-52.0); Hemoglobin 9.6 g/dL (13.0-18.0); Mean Corp Hgb Conc. 35.2 g/dL (33.0-37.0); Mean Corpuscular Hgb 31.4 pg (27.0-31.0); Mean Corpuscular Volume 89.2 fL (80.0-94.0); Mean Platelet Volume 10.6 fL (7.4-10.4); Nucleated Red Blood Cells % 0 % (-); Platelet Count 101 10^3/uL (130-400); Red Blood Cell Count 3.06 10^6/uL (4.70-6.10); Red Cell Dist. Width 13.5 % (11.5-14.5); White Blood Cell Count 7.4 10^3/uL (4.8-10.8)
--- NOTE | 2024-03-31 07:00 | PTCARENOTE ---
report received from nightshift RN. pt resting in bed, AAOX3. denies pain. SR with BBB on telemetry heart rate 80s. +1 lower extremity edema. + pulses. pt on room air, sat 95-97%. lung sounds diminished. some CHOU noted. Active bowel sounds. voiding
in urinal. pt updated on plan of care. new IV placed by IV team. see worklist for full nursing assessment
--- NOTE | 2024-03-31 07:05 | VATNOTE ---
Called to assess left arm vanco infiltrate. Infiltrate measured 1X1 cm. Iv dc'd . Cool compress applied and elevated on pillow. Will monitor closely.
[2024-03-31] MEDS: COREG 3.125 MG PO ×2 (07:47→19:55)
[2024-03-31] MEDS: ASPIR LOW (ENTERIC COATED) 81 MG PO (07:47)
[2024-03-31] MEDS: DESENEX/MITRAZOL/ZEASORB 1 APPLIC TOPICAL ×2 (07:48→20:03)
[2024-03-31] MEDS: NOVOLOG FLEXPEN-LOW RESISTANCE 1 UNITS SC (08:00)
[2024-03-31 08:10] LABS: Glucose - Point of Care 169 mg/dl (70-99)
--- NOTE | 2024-03-31 09:06 | PHA.VAN.FU ---
Vancomycin Assessment / Plan
- Assessment
Renal Function: SCR Decreasing
WBC's are: Trending Down
In the past 24 hrs, patient has been: Febrile (Tmax = 100.6)
Concomitant Antimicrobials: Ampicillin
- Dosing Plan
Continue: Vanc 1500mg IV Q24H
- Monitoring Plan
No level(s) ordered at this time: Consider levels after 04/02 0600 dose.
- Follow Up
Pharmacy will continue to follow.
Vancomycin Follow UP
- -
Patient Age: 84
Patient Sex: Male
Vancomycin Day #: 2
Indication: Other
Requesting Provider: Winnie
Height / Weight:
Height 5 ft 11 in
Actual Weight 114.6 kg
IBW in k.3
Adjusted BW in k.1
Pertinent Past Medical History: MARCOS. BMI = 34.5
- Vital Signs / Lab Results
Temp Pulse Resp BP Pulse Ox
98.7 F 80 14 119/73 89
03/31/24 07:00 03/31/24 07:47 03/31/24 06:00 03/31/24 06:00 03/31/24 06:00
Lab Results - Hematology
03/29/24 03/30/24 03/31/24
18:41 09:01 05:32
WBC 11.1 H 9.2 7.4
Lab Results - Chemistry
03/29/24 03/30/24 03/31/24
18:41 09:01 05:32
BUN 31 H 29 H 25 H
Creatinine 1.4 H 1.3 1.1
Estimated Creat Clear 54 64
Albumin 4.1 3.2 L 3.1 L
03/29/24 03/29/24 03/29/24
18:41 22:36 23:17
Lactic Acid 5.1 H* 2.1 H Cancelled
06/03/30/24 03/30/24
02:30 09:01 10:30
Lactic Acid Cancelled 1.4 Cancelled
Microbiology Results
03/29/24 18:41 Blood Culture - Preliminary
Blood/Venous Enterococcus species
Gram Stain - Final
03/29/24 18:41 Blood Culture - Preliminary
Blood/Venous Enterococcus species
Gram Stain - Final
03/30/24 13:09 Streptococcus pneumoniae Antigen (M - Final
Urine Negative for Streptococcus pneumoniae antigen.
A negative result does not exclude infection with
Streptococcus pneumoniae. Clinical correlation is
recommended.
03/29/24 21:45 Influenza Types A & B (JOSE LUIS) - Final
Nasal Swab Negative for Influenza A & B, NAAT
Negative results must be combined with clinical observations
and patient history.
Nucleic Acid Amplification test (NAAT)performed on the
[employer] platform.
--- NOTE | 2024-03-31 09:09 | W.PN.ID1 ---
Date of Service
Date of Service: March 31, 2024
Today's Communication
- tte pending - anticipated monday, may consider BRANDON as well
- CT a/p with IV and oral contrast
- continue ampicillin, add ceftriaxone
Assessment / Plan
Fever - improving
Enterococcal bacteremia
Possible endocarditis
TAVR
DM2 - controlled
- enterococcal bacteremia - no definite source yet
- repeat blood cultures x2 no growth to date
- orthopantogram no lesions
- tte pending - anticipated monday, may consider BRANDON as well
- CT a/p with IV and oral contrast
- continue ampicillin, add ceftriaxone
- follow clinically
Chief Complaint
-: Fever and Bacteremia
Subjective / Review of Systems
febrile to 100.6 orally this am
bp stable
without leukocytosis
L shift resolved
panellipse: no periapical abscess
TTE pending
never had colonoscopy
denies any dental or oral pain, no tooth loosening
Vital Signs / Physical Exam
Vital Signs
Vital Signs
Temp Pulse Resp BP Pulse Ox
98.7 F 80 14 119/73 89
03/31/24 07:00 03/31/24 07:47 03/31/24 06:00 03/31/24 06:00 03/31/24 06:00
Physical Exam
Constitutional: No Acute Distress and Obese
Cardiovascular: Regular Rate and S1/S2; Negative Murmur or Rub
Pulmonary: Clear and Symmetric; Negative Wheezes or Rales
Gastrointestinal: Soft, Non Tender, Non Distended and Normal Bowel Sounds
Skin: Warm and Dry; Negative Rash or Jaundice
Objective Data
Lab Data
Lab Results
03/31/24 05:32
03/31/24 05:32
ESR Cancelled 03/29/24 21:51
Estimated Creat Clear 64 ml/min 03/31/24 05:32
Lactic Acid Cancelled 03/30/24 10:30
Total Bilirubin 0.9 mg/dl (0.2-1.3) 03/31/24 05:32
AST 47 U/L (17-59) 03/31/24 05:32
ALT 31 U/L (0-50) 03/31/24 05:32
Alkaline Phosphatase 66 U/L (38-126) 03/31/24 05:32
C-Reactive Protein Cancelled 03/29/24 21:51
Most recent labs reviewed.
Micro Results:
03/29/24 18:41 Blood Culture - Preliminary
Blood/Venous Enterococcus species
Gram Stain - Final
03/29/24 18:41 Blood Culture - Preliminary
Blood/Venous Enterococcus species
Gram Stain - Final
03/30/24 13:46 Blood Culture - Pending
Blood/Venous
03/30/24 13:09 Streptococcus pneumoniae Antigen (M - Final
Urine Negative for Streptococcus pneumoniae antigen.
A negative result does not exclude infection with
Streptococcus pneumoniae. Clinical correlation is
recommended.
03/30/24 13:09 Blood Culture - Pending
Blood/Venous
03/29/24 21:45 Influenza Types A & B (JOSE LUIS) - Final
Nasal Swab Negative for Influenza A & B, NAAT
Negative results must be combined with clinical observations
and patient history.
Nucleic Acid Amplification test (NAAT)performed on the
[employer] platform.
[2024-03-31] MEDS: OMNIPAQUE 50 ML PO (09:52)
[2024-03-31] MEDS: ROCEPHIN 2000 MG IV ×2 (09:53→23:21)
[2024-03-31] MEDS: STERILE WATER FOR INJECTION 20 ML IV ×2 (09:53→23:22)
--- NOTE | 2024-03-31 10:31 | CM ---
Patient with Dx Severe sepsis with gram-positive bacteremia, Elevated troponin, Thrombocytopenia, Suspect TME, MARCOS. O2 2L. Receiving 3 IV Abx. Plan BRANDON Mon 04/01.
Met with patient who resides with his in a one story house with 1 KANNAN.
The patient has been independent for ADLs - able to shower by himself.
He ambulates in the house by holding onto the furniture, saying the RW will not fit. The patient uses his RW when he goes out.
The patient still drives and shops.
DME - RW, SPC, w/c
No prior VN or SNF.
PCP - Homar Mcneill
Pharmacy - [facility]
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
The patient has 2 children nearby who also help as needed.
Patient may benefit from PT Eval---> message to Dr Hawkins.
Plan watch for home O2 needs.
Plan follow up after seen by PT.
[2024-03-31 12:57] LABS: Glucose - Point of Care 217 mg/dl (70-99)
--- NOTE | 2024-03-31 13:15 | W.PN.HOSP.TC ---
Today's Communication/Plan
-
Monitor vital signs see plan
Follow fever curve
Continue antibiotics
Echo tomorrow
Transfer out of IMU
Assessment / Plan
Assessment / Plan
General: Well Developed, Well Nourished, No Apparent Distress, Comfortable and Conversant
HEENT: Anicteric and Moist mucous membranes
Respiratory: Clear
Cardiac: S1/S2 and Regular Rhythm
GI: Soft, Non Tender, Non Distended and Normal Bowel Sounds
Musculoskeletal: Edema, Right Upper Extremity and Edema, Left Lower Extremity
Neuro: AO x 3
Psych: Calm
Severe sepsis with enterococcal bacteremia
Positive blood culture from admission with Enterococcus, repeat blood culture pending
COVID, flu negative
ID following
check Echocardiogram, if concerning then will need cardiology evaluation for BRANDON given history of TAVR with concern of endocarditis
- UA without UTI
- CXR is unremarkable
Continue with antibiotics per infectious disease
CT abdomen/pelvis without acute abnormality to explain for his bacteremia
Follow fever curve
Lactic acidosis on admission
Resolved
Elevated troponin likely nonischemic myocardial injury
Denies any chest pain
Does have history of CAD with stent
Trend troponin, if continues to rise then will get cardiology evaluation
cw ASA
Thrombocytopenia
Monitor
Suspect TME secondary to sepsis
now improving, monitor
MARCOS
Improving
- Trend Cr
- Held chlorthalidone ,Losartan
HLD
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
HX valvular heart dz
s/p TAVR
monitor
echo
Last echo in 12/29 with EF 61%, mild MR,TAVR with peak/mean gradients of 26/13 mmHg, respectively. AV
Dimensionless Index is 0.5. Mild paravalvular aortic regurgitation
Relative hypotension due to sepsis
essential HTN
- IVF
-Held Losartan and Carvedilol
NIDDM
- held Metformin
- add ISS low
A1c 6.8
DVT Px: LMWH
Code: Full code
I spent a total of 52 minutes with the patient or on the floor. More than 50% of this time involved counseling and coordination of care.
Anticipated Discharge: > 48 hours
Subjective/Interval History
-
Date of Service: March 31, 2024
denies pain
Objective Data
-
Labs:
Laboratory Results
03/31/24
05:32
WBC 7.4
Hgb 9.6 L
Hct 27.3 L
Plt Count 101 L
Sodium 135
Potassium 3.9
Chloride 102
Carbon Dioxide 24
BUN 25 H
Creatinine 1.1
Glucose 172 H
Calcium 9.1
Total Bilirubin 0.9
AST 47
ALT 31
Alkaline Phosphatase 66
Vital Signs:
Vital Signs
Temp Pulse Resp BP Pulse Ox
98.7 F 80 23 138/81 96
03/31/24 07:00 03/31/24 12:00 03/31/24 12:00 03/31/24 10:00 03/31/24 10:00
I&O
03/30/24 03/31/24 04/01/24
06:59 06:59 06:59
Intake Total 1560 / 1560 1080 / 1080 400 / 400
Output Total 800 / 800 1700 / 1700 800 / 800
Balance 760 / 760 -620 / -620 -400 / -400
[2024-03-31] MEDS: NOVOLOG FLEXPEN-LOW RESISTANCE 2 UNITS SC ×2 (13:54→17:34)
[2024-03-31] MEDS: LR IV (16:04)
[2024-03-31] MEDS: LOVENOX 40 MG SC (17:10)
[2024-03-31] MEDS: LIPITOR 40 MG PO (17:10)
--- NOTE | 2024-03-31 17:23 | PTCARENOTE ---
Patient received from IMU in wheelchair, patient stand and pivot to bed; Call garcia within reach; Spouse at bedside; Patient oriented to room and unit; Bed in lowest position, wheels locked; Assessment ongoing
[2024-03-31 17:35] LABS: Glucose - Point of Care 214 mg/dl (70-99)
[2024-03-31 21:40] LABS: Glucose - Point of Care 209 mg/dl (70-99)
[2024-04-01] VITALS (8 sets, daily range): BP systolic 110–159; BP diastolic 45–78; PULSE 78–79; O2SAT 93–98; BMI 34.6
[2024-04-01] MEDS: AMPICILLIN 108 MG IV ×6 (00:30→21:10)
[2024-04-01 06:04] LABS: % Basophils 0.4 % (0-2); % Eosinophils 3.6 % (0-6); % Immature Granulocytes 0.6 % (0-0.5); % Lymphocytes 10.1 % (20.5-51.1); % Monocytes 13.9 % (1.7-9.3); % Neutrophils 71.4 % (42.2-75.2); Absolute Eosinophils 0.3 10^3/uL (0-0.7); Absolute Lymphocytes 0.7 10^3/uL (1.2-3.4); Hematocrit 28.5 % (39.0-52.0); Hemoglobin 9.6 g/dL (13.0-18.0); Mean Corp Hgb Conc. 33.7 g/dL (33.0-37.0); Mean Corpuscular Hgb 31.2 pg (27.0-31.0); Mean Corpuscular Volume 92.5 fL (80.0-94.0); Nucleated Red Blood Cells % 0 % (-); Platelet Count 111 10^3/uL (130-400); Red Blood Cell Count 3.08 10^6/uL (4.70-6.10); Red Cell Dist. Width 13.3 % (11.5-14.5)
[2024-04-01] MEDS: VANCOCIN 300 ML IV (06:06)
[2024-04-01] MEDS: VANCOCIN 300 MG IV (06:06)
[2024-04-01 06:21] LABS: ALT (SGPT) 51 U/L (0-50); AST (SGOT) 53 U/L (17-59); Albumin 3.1 g/dl (3.5-5.0); Alkaline Phosphatase 79 U/L (38-126); Blood Urea Nitrogen 20 mg/dl (9-20); Carbon Dioxide 27 mmol/L (22-30); Chloride 103 mmol/L (98-107); Estimated Creatinine Clearance 64 ml/min; Glucose 153 mg/dl (70-99); Potassium 4.3 mmol/L (3.5-5.1); Sodium 138 mmol/L (135-145); Total Bilirubin 0.8 mg/dl (0.2-1.3); Total Protein 5.9 g/dl (6.3-8.2); eGFR > 60.00
[2024-04-01 08:00] LABS: Glucose - Point of Care 180 mg/dl (70-99)
[2024-04-01] MEDS: COREG 3.125 MG PO ×2 (08:22→21:10)
[2024-04-01] MEDS: ASPIR LOW (ENTERIC COATED) 81 MG PO (08:22)
[2024-04-01] MEDS: NOVOLOG FLEXPEN-LOW RESISTANCE 1 UNITS SC ×2 (08:22→12:22)
[2024-04-01] MEDS: DESENEX/MITRAZOL/ZEASORB 1 APPLIC TOPICAL ×2 (08:26→21:11)
--- NOTE | 2024-04-01 09:48 | CARDSERVLU ---
Echocardiogram with [facility] completed after protocol screening completed. Allergies verified.
Patent IV site: _Right hand 22 G PC____
IV site flushed with 0.9% NaCl pre and post administration.
Diluted bolus method utilized to enhance visualization of ventricular purvis.
Total volume given: __4__ mL
Patient tolerated all procedures well without complications.
[2024-04-01 11:22] LABS: Glucose - Point of Care 173 mg/dl (70-99)
--- NOTE | 2024-04-01 12:07 | PHA.VAN.FU ---
Vancomycin Assessment / Plan
- Assessment
Renal Function: Stable
WBC's are: WNL
In the past 24 hrs, patient has been: Afebrile
Concomitant Antimicrobials: Ampicillin
- Dosing Plan
Continue: 1500mg Q24H
- Monitoring Plan
Peak Level: 04/02 @0900
Trough Level: 04/03 @05:30
- Follow Up
Pharmacy will continue to follow.
Vancomycin Follow UP
- -
Patient Age: 84
Patient Sex: Male
Vancomycin Day #: 3
Indication: Other
Requesting Provider: Winnie
Height / Weight:
Height 5 ft 11 in
Actual Weight 112.519 kg
IBW in k.3
Adjusted BW in k.1
Pertinent Past Medical History: MARCOS. BMI = 34.5
- Vital Signs / Lab Results
Temp Pulse Resp BP Pulse Ox
98.8 F 82 18 134/71 98
04/01/24 11:00 04/01/24 11:00 04/01/24 11:00 04/01/24 11:00 04/01/24 11:00
Lab Results - Hematology
03/29/24 03/30/24 03/31/24
18:41 09:01 05:32
WBC 11.1 H 9.2 7.4
04/01/24
05:35
WBC 7.0
Lab Results - Chemistry
03/29/24 03/30/24 03/31/24
18:41 09:01 05:32
BUN 31 H 29 H 25 H
Creatinine 1.4 H 1.3 1.1
Estimated Creat Clear 54 64
Albumin 4.1 3.2 L 3.1 L
04/01/24
05:35
BUN 20
Creatinine 1.1
Estimated Creat Clear 64
Albumin 3.1 L
03/29/24 03/29/24 03/29/24
18:41 22:36 23:17
Lactic Acid 5.1 H* 2.1 H Cancelled
03/30/24 03/30/24 03/30/24
02:30 09:01 10:30
Lactic Acid Cancelled 1.4 Cancelled
Microbiology Results
03/29/24 18:41 Blood Culture - Final
Blood/Venous Enterococcus faecalis
Gram Stain - Final
03/29/24 18:41 Blood Culture - Final
Blood/Venous Enterococcus faecalis
Gram Stain - Final
03/30/24 13:46 Blood Culture - Preliminary
Blood/Venous Enterococcus faecalis
Gram Stain - Preliminary
03/30/24 13:09 Blood Culture - Preliminary
Blood/Venous Enterococcus faecalis
Gram Stain - Preliminary
03/30/24 13:09 Streptococcus pneumoniae Antigen (M - Final
Urine Negative for Streptococcus pneumoniae antigen.
A negative result does not exclude infection with
Streptococcus pneumoniae. Clinical correlation is
recommended.
[2024-04-01] MEDS: ROCEPHIN 2000 MG IV ×2 (12:10→22:27)
[2024-04-01] MEDS: STERILE WATER FOR INJECTION 20 ML IV ×2 (12:10→22:27)
--- NOTE | 2024-04-01 13:00 | VATNOTE ---
Vancomycin infiltrate from 03/31 assessed at this time. Small, 1 cm x 1 cm lump remains. Pt denies pain but states it is still sore to palpation.
--- NOTE | 2024-04-01 14:16 | W.PN.HOSP.TC ---
Today's Communication/Plan
-
continue IV abx pending repeat cultures
Await Echo
Assessment / Plan
Assessment / Plan
Assessment:
Severe sepsis with enterococcal bacteremia
Positive blood culture from admission with Enterococcus, repeat blood culture pending
COVID, flu negative
ID following
await Echocardiogram, if concerning then will need cardiology evaluation for BRANDON given history of TAVR with concern of endocarditis
other infectious workup UA, CXR, were negative
Continue with antibiotics (Vancomycin, Ampicillin, Rocephin) per infectious disease
CT abdomen/pelvis without acute abnormality to explain for his bacteremia
Follow fever curve
Lactic acidosis on admission
Resolved
Elevated troponin likely nonischemic myocardial injury
Denies any chest pain
Does have history of CAD with stent
trop peaked at .281
cw ASA
Thrombocytopenia
Monitor
Suspect TME secondary to sepsis
now improving, monitor
MARCOS
Improving
- Trend Cr
- Held chlorthalidone ,Losartan
HLD
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
HX valvular heart dz
s/p TAVR
monitor
echo
Last echo in 12/29 with EF 61%, mild MR,TAVR with peak/mean gradients of 26/13 mmHg, respectively. AV
Dimensionless Index is 0.5. Mild paravalvular aortic regurgitation
Relative hypotension due to sepsis
essential HTN
- IVF
-Held Losartan and Carvedilol
NIDDM
- held Metformin
- add ISS low
A1c 6.8
DVT Px: LMWH
Code: Full code
Anticipated Discharge: > 48 hours
Subjective/Interval History
-
Date of Service: April 01, 2024
no new complaints
Objective Data
-
Labs:
Laboratory Results
04/01/24
05:35
WBC 7.0
Hgb 9.6 L
Hct 28.5 L
Plt Count 111 L
Sodium 138
Potassium 4.3
Chloride 103
Carbon Dioxide 27
BUN 20
Creatinine 1.1
Glucose 153 H
Calcium 9.0
Total Bilirubin 0.8
AST 53
ALT 51 H
Alkaline Phosphatase 79
Vital Signs:
Vital Signs
Temp Pulse Resp BP Pulse Ox
98.8 F 82 18 134/71 98
04/01/24 11:00 04/01/24 11:00 04/01/24 11:00 04/01/24 11:00 04/01/24 11:00
I&O
03/31/24 04/01/24 04/02/24
06:59 06:59 06:59
Intake Total 1080 / 1080 1732 / 1732
Output Total 1700 / 1700 2915 / 2915
Balance -620 / -620 -1183 / -1183
Physical Exam
-
General: No Apparent Distress
HEENT: Normocephalic and Atraumatic
Respiratory: Negative Wheezes
Cardiac: Regular Rhythm and S1/S2
GI: Soft
Musculoskeletal: No Edema
Psych: Calm
Data Reviewed
-
Total Time Spent with Patient (in minutes): 50
Labs: Labs Reviewed by me
--- NOTE | 2024-04-01 14:39 | W.PN.ID1 ---
Date of Service
Date of Service: April 01, 2024
Today's Communication
continue ampicillin and ceftriaxone
consider BRANDON and colonoscopy if feasible
Assessment / Plan
Fever - improving
Enterococcal bacteremia
Possible endocarditis
TAVR
DM2 - controlled
- repeat blood cultures x2 done today and no growth to date
- UA negative, did not reflex to culture and I wouldnt recommend it
- enterococcal bacteremia - 03/29-03/30 thus far
- orthopantogram no lesions
- CT a/p - no gross lesions
- tte no vegetations though MV is thickened, could consider BRANDON
- would consider colonoscopy - wonder if inpatient study feasible - patient with mobility challenges
- when bacteremia cleared then will place picc line
- continue ampicillin, ceftriaxone x 6 weeks
- follow clinically
Chief Complaint
-: Fever and Bacteremia
Subjective / Review of Systems
intermittent low grade fevers - overall improving
bp stable
without leukocytosis
cr 1.1
repeat blood cultures from 03/30 also positive
Vital Signs / Physical Exam
Vital Signs
Vital Signs
Temp Pulse Resp BP Pulse Ox
98.8 F 82 18 134/71 98
04/01/24 11:00 04/01/24 11:00 04/01/24 11:00 04/01/24 11:00 04/01/24 11:00
Physical Exam
Constitutional: No Acute Distress
Cardiovascular: Regular Rate and S1/S2; Negative Murmur or Rub
Pulmonary: Clear and Symmetric; Negative Wheezes or Rales
Gastrointestinal: Soft, Non Tender, Non Distended and Normal Bowel Sounds
Skin: Warm and Dry; Negative Rash or Jaundice
Objective Data
Lab Data
Lab Results
04/01/24 05:35
04/01/24 05:35
ESR Cancelled 03/29/24 21:51
Estimated Creat Clear 64 ml/min 04/01/24 05:35
Lactic Acid Cancelled 03/30/24 10:30
Total Bilirubin 0.8 mg/dl (0.2-1.3) 04/01/24 05:35
AST 53 U/L (17-59) 04/01/24 05:35
ALT 51 U/L (0-50) H 04/01/24 05:35
Alkaline Phosphatase 79 U/L (38-126) 04/01/24 05:35
C-Reactive Protein Cancelled 03/29/24 21:51
Most recent labs reviewed.
Micro Results:
03/29/24 18:41 Blood Culture - Final
Blood/Venous Enterococcus faecalis
Gram Stain - Final
03/29/24 18:41 Blood Culture - Final
Blood/Venous Enterococcus faecalis
Gram Stain - Final
03/30/24 13:46 Blood Culture - Preliminary
Blood/Venous Enterococcus faecalis
Gram Stain - Preliminary
03/30/24 13:09 Blood Culture - Preliminary
Blood/Venous Enterococcus faecalis
Gram Stain - Preliminary
04/01/24 08:22 Blood Culture - Pending
Blood/Venous
04/01/24 05:35 Blood Culture - Pending
Blood/Venous
03/30/24 13:09 Streptococcus pneumoniae Antigen (M - Final
Urine Negative for Streptococcus pneumoniae antigen.
A negative result does not exclude infection with
Streptococcus pneumoniae. Clinical correlation is
recommended.
03/29/24 21:45 Influenza Types A & B (JOSE LUIS) - Final
Nasal Swab Negative for Influenza A & B, NAAT
Negative results must be combined with clinical observations
and patient history.
Nucleic Acid Amplification test (NAAT)performed on the
[employer] platform.
Care Review
Plan reviewed with: Physician (Dr Thomas and Dr Josh TAYLOR, colonoscopy)
--- NOTE | 2024-04-01 15:47 | CON.GI ---
Addendum entered and electronically signed by Raulito Thomas MD 04/01/24 17:04:
I saw and examined the patient.
The BOARD MACHINE SET UP OPERATOR or PA's note was reviewed and I agree with the note.
Comment: 84yo male hx CAD, TAVR in 2020 presents with fever, fall admitted for sepsis. BCx positive for Enterococcus Faecalis. TTE did not show any obvious vegetations, and he is getting BRANDON tomorrow. He has never had colonoscopy before and GI
consulted for procedures to rule out GI source. He had EGD in 2010 for heme positive stool that showed gastric polyps, gastritis, duodenal ectasia. He denies GI complaints. CT abd/pelvis showed no significant pathology to explain his bacteremia.
ID is managing abx and planning PICC after negative repeat cultures.
REC:
Getting BRANDON tomorrow
Discussed EGD/colonoscopy with pt to look for source of his Enterococcus Faecalis bacteremia and rule out occult malignancy
He wishes to discuss with his and then decide if he wishes to proceed
Will follow up
Original Note:
Consultation
-
Date/Time Consultation Requested: 04/01/24 @ 15:38
Date/Time Consultation Performed: 04/01/24 @ 16:00
Requesting Provider: Dr. Moreno
Performing Provider: DICK Grant; Dr. Raulito Thomas
Reason for Consultation: colonoscopy in setting of Enterococcus
Medical History
Chief Complaint / HPI
Chief Complaint: dizziness, fall, fatigue
History of Present Illness:
The patient is an 84-year-old male with a past medical history significant for hypertension, aortic stenosis status post TAVR, CAD, DM2, HLD, hx melanoma with skin excisions, who presented to the ER initially for evaluation for a fall. Upon review
admitting records, the patient had felt dizzy at home and had a fall. He had also had been lethargic with decreased p.o. intake prior to admission per his . In the ER he was found to have a fever of 103 with some mild hypoxia. Lactic acid was
elevated along with elevated troponins concerning for sepsis and demand ischemia. His CRP was also elevated at 208. Initial workup was unrevealing with a normal UA and unremarkable chest x-ray. He did have subsequent blood cultures drawn which
were positive for Enterococcus Faecalis. He underwent a panelipse XR which showed no evidence of periapical abscess. He also underwent a CT of the abdomen and pelvis which showed no evidence of acute pathology to explain his bacteremia.
Infectious disease was asked to evaluate given the unclear source of bacteremia. He was placed on ampicillin with further testing as above. Ceftriaxone also was added given persistent bacteremia. Concern for possible endocarditis he underwent an
echo which was a technically difficult study but adequate with no evidence of cardiac source of embolus. He is planning for a BRANDON tomorrow. Given his history of TAVR, we are being asked to evaluate for possible GI source of bacteremia. Patient
denies any GI complaints today. He reports having a history of diverticulitis remotely in the past and had been admitted to [facility] at that time. He also reports history of concern for upper GI bleed and underwent an EGD in 2010 with
[facility]. He watches his diet and avoids certain foods that can cause constipation otherwise his bowels are regular with no change in bowel habits. He denies any signs of melena or hematochezia. He otherwise denies any heartburn, reflux,
dysphagia, loss of appetite, abdominal pain, unintentional weight loss, chest pain, or shortness of breath. He has never had a colonoscopy in the past. He denies any family history of colorectal cancer or other GI cancers or disorders. He does
note that he was taking an iron pill at one point as his PCP told him he was anemic, but this made his stool black therefore he stopped taking it. He denies any significant alcohol use. He is a non-smoker. He follows with Dr. Mills from
cardiology. He denies use of blood thinners. He notes that he was taking Aleve fairly regularly for arthritis pains, but is unclear how long he was taking this for. Labs reviewed from today showing hemoglobin 9.6, WBC 7.0, platelets 111,000,
Sodium 138, potassium 4.3, BUN 20, creatinine 1.1, glucose 153, total bilirubin 0.8, AST 53, ALT 51, alk phos 79.
Past Medical History
Past Medical History: CAD (with stent), HTN, Hypercholesterolemia, NIDDM, Valvular Disease ( s/p TAVR) and Other (melanoma skin CA)
Past Surgical History: Cardiac (TAVR, stent)
Social History
Tobacco: Non-Smoker
Alcohol: None
Drug: None
Personal:
Living: With Family
Family History
Family History: Reviewed & Not Pertinent
Allergies / Home Medications
Allergy/AdvReac Type Severity Reaction Status Date / Time
Tetanus Vaccines and Toxoid Allergy Swelling Verified 03/29/24 18:13
�Medication �Instructions �Recorded
aspirin 81 mg tablet,delayed 81 mg PO DAILY Blood clot 01/02/11
release prevention/tx
atorvastatin 40 mg tablet 40 mg PO QPM High cholesterol 10/11/17
chlorthalidone 25 mg tablet 25 mg PO QPM Antihypertensive; 02/10/21
losartan 100 mg tablet (Cozaar) 100 mg PO DAILY Blood pressure 02/10/21
vitamin K2 100 mcg capsule 100 mcg PO DAILY Supplement 02/10/21
metformin 500 mg tablet,extended 1,000 mg (2 x 500 mg) PO 07/03/21
release 24 hr BID@0800,1700 Diabetes ##0
amlodipine 5 mg tablet 5 mg PO DAILY 03/29/24
carvedilol 3.125 mg tablet 3.125 mg PO BID 03/29/24
cholecalciferol (vitamin D3) 50 50 mcg PO DAILY 03/29/24
mcg (2,000 unit) tablet
cyanocobalamin (vitamin B-12) 1,000 mcg PO DAILY 03/29/24
1,000 mcg tablet
multivitamin 1 tab PO DAILY 03/29/24
vitamin A 2,400 mcg capsule 2,400 mcg PO DAILY 03/29/24
zinc sulfate 50 mg zinc (220 mg) 50 mg PO DAILY 03/29/24
tablet
Review of Systems
-
History Source: Patient
Constitutional: Reports Fever
EENT: Reports No Symptoms
Respiratory: Reports No Symptoms
Cardiac: Reports No Symptoms
Abdomen/GI: Reports No Symptoms
: Reports No Symptoms
Musculoskeletal: Reports No Symptoms
Skin: Reports No Symptoms
Neurological: Reports No Symptoms
Vital Signs
Temp Pulse Resp BP Pulse Ox
98.7 F 72 18 110/45 94
04/01/24 15:00 04/01/24 15:00 04/01/24 15:00 04/01/24 15:00 04/01/24 15:00
Physical Exam
Exam
General: Comfortable and Other (Elderly appearing male in no acute distress)
HEENT: Normocephalic, Anicteric and Atraumatic
Respiratory: Clear, Non Labored Respirations and Other (Supplemental O2 in place)
Cardiac: S1/S2 and Regular Rhythm
GI: Soft, Non Tender, Non Distended, Normal Bowel Sounds and Other (Obese abdomen)
Musculoskeletal: Edema (Trace lower extremity edema)
Skin: Warm and Dry
Neuro: Awake, Alert and Oriented
Psych: Calm
Results
WBC 7.0 10^3/uL (4.8-10.8) 04/01/24 05:35
Hgb 9.6 g/dL (13.0-18.0) L 04/01/24 05:35
Hct 28.5 % (39.0-52.0) L 04/01/24 05:35
MCV 92.5 fL (80.0-94.0) 04/01/24 05:35
Plt Count 111 10^3/uL (130-400) L 04/01/24 05:35
Absolute Neuts (auto) 5.0 10^3/uL (1.4-6.5) 04/01/24 05:35
Sodium 138 mmol/L (135-145) 04/01/24 05:35
Potassium 4.3 mmol/L (3.5-5.1) 04/01/24 05:35
Chloride 103 mmol/L (98-107) 04/01/24 05:35
Carbon Dioxide 27 mmol/L (22-30) 04/01/24 05:35
BUN 20 mg/dl (9-20) 04/01/24 05:35
Creatinine 1.1 mg/dL (0.7-1.3) 04/01/24 05:35
Calcium 9.0 mg/dl (8.4-10.2) 04/01/24 05:35
Total Bilirubin 0.8 mg/dl (0.2-1.3) 04/01/24 05:35
AST 53 U/L (17-59) 04/01/24 05:35
ALT 51 U/L (0-50) H 04/01/24 05:35
Alkaline Phosphatase 79 U/L (38-126) 04/01/24 05:35
Diagnostic Image Results:
03/31/24 CT A/P: IMPRESSION:
1). There is no evidence of acute pathology in the abdomen or pelvis.
2). Diverticuli are present in the colon with no CT evidence of diverticulitis
3). There is cholelithiasis
4). There is minimal dependent atelectasis and minimal bilateral pleural effusions at the posterior lung bases.
5). Atherosclerosis with TAVR type aortic valve prosthetic aortic valve.
6). Multilevel lumbar degenerative disc disease
7). Hepatomegaly with diffuse fatty infiltration of the liver
03/30/24 Opthopantogram: IMPRESSION: No evidence of periapical abscess.
03/29/24 CXR: IMPRESSION: Low lung volumes. No focal parenchymal opacification to suggest pneumonia.
Prior GI Procedures:
EGD: 2010 Dr. Lin: Normal esophagus. Multiple gastric polyps. Gastritis. Gastric mucosal abnormality characterized by erythema. A single non-bleeding angiodysplastic lesion in the duodenum.
Colonoscopy: none
Assessment / Plan
-
The patient is an 84-year-old male with a past medical history significant for hypertension, aortic stenosis status post TAVR, CAD, DM2, HLD, hx melanoma with skin excisions, who presented to the ER initially for evaluation for a fall found to have
sepsis with bacteremia of Enterococcus of unclear etiology. He was placed on IV antibiotics with ampicillin and ceftriaxone, followed by ID. CT abdomen and pelvis along with other imaging unclear for source. Blood cultures x 2 showing persistent
bacteremia. He has noted no further fevers. He is undergoing cardiac workup for endocarditis, with no evidence of vegetation on echo. He is pending a BRANDON tomorrow. We are asked to evaluate for possible GI source of bacteremia as he has never had
a colonoscopy. There is no family history of colon cancer or other GI cancers or disorders. He has no change of bowel habits or other concerning GI complaints. He does report use of NSAIDs fairly regularly for arthritis pains.
Problem list:
-Enterococcus bacteremia
- s/p hx TAVR
-normocytic anemia
-fever of unknown origin
-thrombocytopenia
-elevated troponin, ?demand ischemia
-lactic acidosis/sepsis resolved
-hypoxia, on supplementation O2
-Elevated ALT
-MARCOS
Other pertinent medical hx:
-CAD with stent
-HTN
-HLD
-DM2
-hx melanoma in situ with excision
Recommendations:
-Etiology of bacteremia unclear, does not appear to have any overt abdominal or pelvic causes given unrevealing CT. Cardiac evaluation so far unrevealing for any signs of vegetation on his aortic valve, with prior TAVR.
-Discussed with the patient regarding undergoing a colonoscopy to evaluate for possible GI source such as colon cancer. He would like to think this over and speak to his regarding this. Would also recommend undergoing an EGD as per infectious
disease for full GI workup.
-Unlikely peptic ulcer disease but did have elevated BUN and was using NSAIDs fairly regularly prior to admission.
-He will be n.p.o. tomorrow for his BRANDON, then we will re-discuss his wishes regarding having it GI procedures. If so he will need to be on clear liquid diet post his BRANDON.
-Infectious disease following and managing antibiotic
-Would add iron studies given his anemia
-Monitor LFTs, had a mild increase of his ALT otherwise normal LFTs with no history of significant alcohol use. May be secondary to infectious etiology versus sepsis versus antibiotics.
-Further plan pending above
Data Reviewed
-
CT Scan: Report Reviewed by me and Discussed with Physician
-
-
Thank you for consultation and allowing me to participate in the patient's care. Please call the distribution center supervisor GI physician during the after hours with any questions or concerns.
--- NOTE | 2024-04-01 15:51 | CON.CAR ---
Addendum entered and electronically signed by Gal Waters DO 04/01/24 17:03:
I saw and examined the patient.
The Safety Security Officer's note was reviewed and I agree with the note.
Comment:
BRANDON discussed with pt procedures and risks and he wishes to proceed
Reviewed 2D echo with him, read by me.
Med tx of nonMI trop
Discussed with ID and primary service.
BRANDON for AM April 02
Original Note:
Consultation
Consultation Request
Date/Time Consultation Requested: 04/01/2024
Date/Time Consultation Performed: 04/01/2024
Requesting Provider: Dr. Mroeno
Performing Provider: Dr. Waters
Reason for Consultation: BRANDON, possible endocarditis
Medical History
-
History of Present Illness:
HPI: Juan Manuel is an 84 year old male with PMH of hypertension, hyperlipidemia, DM2, CAD s/p RCA PCI, carotid disease, LBBB, and TAVR. Presented for evaluation after fall and dizziness at home. He was febrile on arrival with temp 103. CXR and UA
unremarkable. Blood cultures positive for entercoccus. ID following and patient is on antibiotics. No clear source has been identified of bacteremia. Transthoracic echo 04/01 was without clear evidence of vegetation, however given bacteremia w/ h/o
TAVR, cardiology consulted for evaluation and BRANDON. Patient denies chest pain, however was found to have elevated troponin in ER, with peak troponin 0.281, trending down thereafter. EKG stable, SR without any acute ischemic changes. Patient has no
complaints currently.
PMH:
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
LBBB
CAD
Old MA and RCA stent 01/02/2011
Hyperlipidemia
Diabetes
Hypertension
Carotid disease
Renal mass
Past Medical History
Past Medical History: Other (In HPI)
Past Surgical History: Cardiac (TAVR 2020, PCI 2010) and Other (elbow surgery, melanoma excision, b/l cataract surgery)
Social History
Tobacco: Non-Smoker
Alcohol: None
Drug: None
Personal:
Living: With Family
Employment: Retired
Family History
Family History: Hypertension
Allergies / Home Medications
Allergy/AdvReac Type Severity Reaction Status Date / Time
Tetanus Vaccines and Toxoid Allergy Swelling Verified 03/29/24 18:13
�Medication �Instructions �Recorded �Confirmed �Type
aspirin 81 mg tablet,delayed 81 mg PO DAILY Blood clot 01/02/11 03/29/24 History
release prevention/tx
atorvastatin 40 mg tablet 40 mg PO QPM High cholesterol 10/11/17 03/29/24 History
chlorthalidone 25 mg tablet 25 mg PO QPM Antihypertensive; 02/10/21 03/29/24 History
losartan 100 mg tablet (Cozaar) 100 mg PO DAILY Blood pressure 02/10/21 03/29/24 History
vitamin K2 100 mcg capsule 100 mcg PO DAILY Supplement 02/10/21 03/29/24 History
metformin 500 mg tablet,extended 1,000 mg (2 x 500 mg) PO 07/03/21 03/29/24 Rx
release 24 hr BID@0800,1700 Diabetes ##0
amlodipine 5 mg tablet 5 mg PO DAILY 03/29/24 03/29/24 History
carvedilol 3.125 mg tablet 3.125 mg PO BID 03/29/24 03/29/24 History
cholecalciferol (vitamin D3) 50 50 mcg PO DAILY 03/29/24 03/29/24 History
mcg (2,000 unit) tablet
cyanocobalamin (vitamin B-12) 1,000 mcg PO DAILY 03/29/24 03/29/24 History
1,000 mcg tablet
multivitamin 1 tab PO DAILY 03/29/24 03/29/24 History
vitamin A 2,400 mcg capsule 2,400 mcg PO DAILY 03/29/24 03/29/24 History
zinc sulfate 50 mg zinc (220 mg) 50 mg PO DAILY 03/29/24 03/29/24 History
tablet
Review of Systems
-
History Source: Patient
All other systems: Negative unless noted
Physical Exam
Vital Signs
Temp Pulse Resp BP Pulse Ox
98.7 F 72 18 110/45 94
04/01/24 15:00 04/01/24 15:00 04/01/24 15:00 04/01/24 15:00 04/01/24 15:00
Lab Results
04/01/24 05:35
04/01/24 05:35
Troponin I Cancelled 03/30/24 19:00
Kam-D-Lljclwfvqpy Pept 958 pg/ml 03/29/24 19:53
Physical Exam
General: Well Developed, Well Nourished and No Apparent Distress
HEENT: Normocephalic, Anicteric and Moist Mucous Membranes
Respiratory: Clear and Non Labored Respirations
Cardiac: S1/S2 and Regular Rhythm
Musculoskeletal: No Clubbing, No Cyanosis and No Edema
Skin: Warm and Dry
Neuro: AO x 3 and Nonfocal/Grossly Intact
Psych: Calm
Impression / Plan
-
PCP: Dr. Mcneill
Surveillance Officer: Dr. Mills
Impression:
Presented with fall, dizziness
Enterococcus bacteremia w/ unclear source
Elevated troponin
Anemia
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
LBBB
CAD
Old MA and RCA stent 01/02/2011
Hyperlipidemia
Diabetes
Hypertension
Carotid disease
Renal mass
Echo 04/01/2024: EF 45-50%, mild cLVH, mild anteroseptal hypokinesis, s/p TAVR with peak/mean gradients 35/20 mmHg, mild TR, estimated PAP 41 mmHg
BRANDON 04/02/2024: Study pending
Plan:
-Presented with fall and lightheadedness. Sepsis noted on admission w/ BC + for enterococcus. Repeat BC pending.
-ID following, continue abx per ID.
-Echo 04/01 with no clear vegetation. Plan is for BRANDON in AM 04/02.
-NPO after midnight.
-Elevated troponin, peaking at 0.281, trending down thereafter. Suspect nonischemic myocardial injury in the setting of sepsis and bacteremia.
-Continue aspirin w/ h/o CAD and prior stenting.
-BP stable. Hypotension noted earlier in admission. Continue Coreg. Amlodipine, losartan, and chlorthalidone on hold.
-EKG reviewed, SR w/ LBBB. Stable.
-On 3L NC, wean as able.
HPI: Juan Manuel is an 84 year old male with PMH of hypertension, hyperlipidemia, DM2, CAD s/p RCA PCI, carotid disease, LBBB, and TAVR. Presented for evaluation after fall and dizziness at home. He was febrile on arrival with temp 103. CXR and UA
unremarkable. Blood cultures positive for entercoccus. ID following and patient is on antibiotics. No clear source has been identified of bacteremia. Transthoracic echo 04/01 was without clear evidence of vegetation, however given bacteremia w/ h/o
TAVR, cardiology consulted for evaluation and BRANDON. Patient denies chest pain, however was found to have elevated troponin in ER, with peak troponin 0.281, trending down thereafter. EKG stable, SR without any acute ischemic changes. Patient has no
complaints currently.
Data Reviewed
-
EKG: Tracing Personally Visualized and interpreted
Radiology: Report Reviewed by me
CT Scan: Report Reviewed by me
Medical Tests (Nuc Med, Echo etc): Report Reviewed by me
Labs: Labs Reviewed by me
Old Records: Reviewed
[2024-04-01 16:14] LABS: Glucose - Point of Care 231 mg/dl (70-99)
--- NOTE | 2024-04-01 16:22 | CM ---
Case management following for d/c planning
Chart reviewed
Continuing IV antibiotics
Cx pending
For echo
CM will cont to follow for d/c needs
Plan - anticipate home with HH vs SNF
[2024-04-01 17:22] LABS: Total Iron Binding Capacity 214 ug/dl (261-462)
[2024-04-01] MEDS: LIPITOR 40 MG PO (17:26)
[2024-04-01] MEDS: LOVENOX 40 MG SC (17:27)
[2024-04-01] MEDS: NOVOLOG FLEXPEN-LOW RESISTANCE 2 UNITS SC (17:28)
[2024-04-01 18:02] LABS: Iron 27 ug/dl (49-181); Percent Saturation 12 % (20-50)
[2024-04-01 18:20] LABS: Folate > 20.0 ng/ml (2.76-20); Vitamin B12 932 pg/ml (239-931)
[2024-04-01 21:20] LABS: Glucose - Point of Care 175 mg/dl (70-99)
[2024-04-02] VITALS (7 sets, daily range): BP systolic 127–152; BP diastolic 61–75; PULSE 83; O2SAT 96; BMI 34.4
[2024-04-02] MEDS: AMPICILLIN 108 MG IV ×6 (00:58→20:48)
[2024-04-02 06:09] LABS: Glucose - Point of Care 161 mg/dl (70-99)
[2024-04-02] MEDS: NOVOLOG FLEXPEN-LOW RESISTANCE 1 UNITS SC ×2 (06:09→11:55)
--- NOTE | 2024-04-02 07:04 | W.PN.GI.CBS2 ---
Today's Communication / Plan
-
Please see assessment and plan for details.
Assessment / Plan
-
1. Enterococcus bacteremia: Unclear source, for BRANDON today to rule out mitral valve vegetation. We discussed the possibility of colonoscopy which he is agreeable for, though given his shortness of breath and plan for BRANDON today will likely plan
preparation tomorrow pending his medical status for colonoscopy on .
Subjective
Subjective
Date of Service: April 02, 2024
Patient feeling okay, but does complain of shortness of breath and some chest tightness, no abdominal pain or GI symptoms.
Objective
Data Reviewed
Laboratory Data:
Laboratory Results
Total Bilirubin 0.8 mg/dl (0.2-1.3) 04/01/24 05:35
AST 53 U/L (17-59) 04/01/24 05:35
ALT 51 U/L (0-50) H 04/01/24 05:35
Alkaline Phosphatase 79 U/L (38-126) 04/01/24 05:35
Vital Signs and I&O:
Vital Signs
Temp Pulse Resp BP Pulse Ox
99.6 F 83 18 127/72 96
04/02/24 03:03 04/02/24 03:03 04/02/24 03:03 04/02/24 03:03 04/02/24 03:03
I&O
04/01/24 04/02/24 04/03/24
06:59 06:59 06:59
Intake Total 1732 / 1732 1926 / 1926
Output Total 2915 / 2915 1500 / 1500
Balance -1183 / -1183 426 / 426
Physical Exam
Physical Exam
General: NAD
Abdomen: normal bowel sounds, soft, no tenderness, no masses or bruits, no ascites
[2024-04-02] MEDS: TYLENOL 650 MG PO (07:34)
--- NOTE | 2024-04-02 08:56 | W.PN.HOSP.TC ---
Today's Communication/Plan
-
await AM labs
BRANDON this AM with Cardiology
Colonoscopy tentatively with GI
continue IV Abx per ID and follow cultures
Wean O2 as able
Assessment / Plan
Assessment / Plan
Assessment:
Severe sepsis with enterococcal bacteremia
Positive blood culture from admission with Enterococcus, repeat blood culture pending
COVID, flu negative
ID following
Echocardiogram without overt signs of endocarditis but with no other source determine, cardiology consulted for BRANDON Today given history of TAVR with concern of endocarditis
other infectious workup UA, CXR, were negative
Continue with Ampicillin, Rocephin per ID
CT abdomen/pelvis without acute abnormality to explain for his bacteremia
GI consulted for colonoscopy, tentatively
Follow fever curve
Lactic acidosis on admission
Resolved
Elevated troponin likely nonischemic myocardial injury
Denies any chest pain
Does have history of CAD with stent
trop peaked at .281
cw ASA
Thrombocytopenia
Monitor
Suspect TME secondary to sepsis
now improving, monitor
MARCOS
Improving
- Trend Cr
- Held chlorthalidone ,Losartan
HLD
- cont RESEARCH AFFILIATE baby ASA and Statin
HX valvular heart dz
s/p TAVR
monitor
echo
Last echo in 12/29 with EF 61%, mild MR,TAVR with peak/mean gradients of 26/13 mmHg, respectively. AV
Dimensionless Index is 0.5. Mild paravalvular aortic regurgitation
Relative hypotension due to sepsis
essential HTN
- IVF
- Held Losartan and Carvedilol
NIDDM
- held Metformin
- add ISS low
A1c 6.8
DVT Px: LMWH
Code: Full code
Anticipated Discharge: > 48 hours
Subjective/Interval History
-
Date of Service: April 02, 2024
no sob or cp
on 3L, baseline around 2L
mild temp of 99 treated with Tylenol
for BRANDON today
Objective Data
-
Labs:
Laboratory Results
04/02/24
06:00
WBC Pending
Hgb Pending
Hct Pending
Plt Count Pending
Sodium Pending
Potassium Pending
Chloride Pending
Carbon Dioxide Pending
BUN Pending
Creatinine Pending
Glucose Pending
Calcium Pending
Vital Signs:
Vital Signs
Temp Pulse Resp BP Pulse Ox
99.8 F 82 20 142/63 95
04/02/24 07:15 04/02/24 07:15 04/02/24 07:15 04/02/24 07:15 04/02/24 07:15
I&O
04/01/24 04/02/24 04/03/24
06:59 06:59 06:59
Intake Total 1732 / 1732 1926 / 1926
Output Total 2915 / 2915 1500 / 1500
Balance -1183 / -1183 426 / 426
Physical Exam
-
General: Well Developed and Well Nourished
HEENT: Normocephalic and Atraumatic
Respiratory: Negative Wheezes or Rales
Cardiac: Regular Rhythm and S1/S2
Genito-urinary: No Costovertebral Tender
Psych: Calm
Data Reviewed
-
Total Time Spent with Patient (in minutes): 44
Labs: Labs Reviewed by me
[2024-04-02] MEDS: COREG 3.125 MG PO ×2 (10:29→20:48)
[2024-04-02] MEDS: ROCEPHIN 2000 MG IV ×2 (10:29→22:23)
[2024-04-02] MEDS: STERILE WATER FOR INJECTION 20 ML IV ×2 (10:29→22:23)
[2024-04-02] MEDS: ASPIR LOW (ENTERIC COATED) 81 MG PO (10:29)
[2024-04-02] MEDS: DESENEX/MITRAZOL/ZEASORB 1 APPLIC TOPICAL ×2 (10:52→20:48)
[2024-04-02 11:05] LABS: Hematocrit 28.2 % (39.0-52.0); Hemoglobin 9.5 g/dL (13.0-18.0); Mean Corp Hgb Conc. 33.7 g/dL (33.0-37.0); Mean Corpuscular Hgb 31.1 pg (27.0-31.0); Mean Corpuscular Volume 92.5 fL (80.0-94.0); Platelet Count 116 10^3/uL (130-400); Red Blood Cell Count 3.05 10^6/uL (4.70-6.10); Red Cell Dist. Width 13.1 % (11.5-14.5); White Blood Cell Count 8.4 10^3/uL (4.8-10.8)
--- NOTE | 2024-04-02 11:31 | VATNOTE ---
Left arm reported vanco infiltrate resolved, no swelling or tenderness noted.
--- NOTE | 2024-04-02 11:52 | W.PN.CARDCBS ---
Today's Communication / Plan
-
BRANDON negative for evidence of endocarditis
resume OP antiHTN regimen as able
OP cardiac follow up to be arranged
consider for OP ischemic evaluation once recovered
Impression / Plan
-
PCP: Dr. Mcneill
Ways Operator: Dr. Mills
Impression:
Presented with fall, dizziness
Enterococcus bacteremia w/ unclear source
Elevated troponin, suspected nonischemic myocardial injury
Anemia
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
LBBB
CAD
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
Hyperlipidemia
Diabetes
Hypertension
Carotid disease
Renal mass
Echo 04/01/2024: EF 45-50%, mild cLVH, mild anteroseptal hypokinesis, s/p TAVR with peak/mean gradients 35/20 mmHg, mild TR, estimated PAP 41 mmHg
BRANDON 04/02/2024: EF 50%, mild to moderate MS with peak/mean gradient 12/6 mmHg, well seated TAVR, mild AR, no evidence suggestive of endocarditis
Plan:
-Presented with fall and lightheadedness. Sepsis noted on admission w/ BC + for enterococcus. Repeat BC from 04/01 without growth. continue abx per ID.
-Echo 04/01 with no clear vegetation. BRANDON 04/02 without evidence of endocarditis, results reviewed with patient and at bedside 04/02
-Elevated troponin, peaking at 0.281, trending down thereafter. Suspect nonischemic myocardial injury in the setting of sepsis and bacteremia. EKG SR with LBBB and PVCs. no CP. cath 2020 with nonobstructive CAD. consider for OP ischemic evaluation
once recovered
-Continue aspirin, statin with h/o CAD and prior stenting.
-BP stable. Hypotension noted earlier in admission. Continue Coreg. Amlodipine, losartan, and chlorthalidone on hold, resume as BP allows
-On 3L NC, wean as able.
-will arrange OP cardiac follow up
-will plan to sign off
-d/w nursing.
HPI: Juan Manuel is an 84 year old male with PMH of hypertension, hyperlipidemia, DM2, CAD s/p RCA PCI, carotid disease, LBBB, and TAVR. Presented for evaluation after fall and dizziness at home. He was febrile on arrival with temp 103. CXR and UA
unremarkable. Blood cultures positive for entercoccus. ID following and patient is on antibiotics. No clear source has been identified of bacteremia. Transthoracic echo 04/01 was without clear evidence of vegetation, however given bacteremia w/ h/o
TAVR, cardiology consulted for evaluation and BRANDON. Patient denies chest pain, however was found to have elevated troponin in ER, with peak troponin 0.281, trending down thereafter. EKG stable, SR without any acute ischemic changes. Patient has no
complaints currently.
Progress Note - Ways Operator
Subjective
Date of Service: April 02, 2024
No chest pain, palpitations.
Objective
Labs:
04/02/24 10:55
Labs
Hgb 9.5 g/dL (13.0-18.0) L 04/02/24 10:55
Hct 28.2 % (39.0-52.0) L 04/02/24 10:55
Plt Count 116 10^3/uL (130-400) L 04/02/24 10:55
Sodium 138 mmol/L (135-145) 04/01/24 05:35
Potassium 4.3 mmol/L (3.5-5.1) 04/01/24 05:35
BUN 20 mg/dl (9-20) 04/01/24 05:35
Creatinine 1.1 mg/dL (0.7-1.3) 04/01/24 05:35
Glucose 153 mg/dl (70-99) H 04/01/24 05:35
Troponins
03/30/24 03/30/24
13:09 19:00
Troponin I 0.218 H* Cancelled
Vital Signs and I&O:
Vital Signs
Temp Pulse Resp BP Pulse Ox
98.4 F 79 20 129/67 96
04/02/24 10:30 04/02/24 10:30 04/02/24 07:15 04/02/24 10:30 04/02/24 10:30
Vital Signs
Temp Pulse Resp BP Pulse Ox
98.4 F 79 20 129/67 96
04/02/24 10:30 04/02/24 10:30 04/02/24 07:15 04/02/24 10:30 04/02/24 10:30
Intake & Output
03/31/24 04/01/24 04/02/24 04/03/24
07:59 07:59 07:59 07:59
Intake Total 1080 / 1080 1732 / 1732 1926 / 1926
Output Total 2250 / 2250 2365 / 2365 1500 / 1500
Balance -1170 / -1170 -633 / -633 426 / 426
Physical Exam
Physical Exam
GEN: No distress, awake, alert, oriented x3. sitting in chair. on supp O2
HEENT: supple, anicteric, mmm, eomi
LUNGS: CTA B/L, no wheezes/rales
CV: Reg, S1/S2, 1/6 murmur
EXT: No cyanosis, clubbing, edema
NEURO: Gross non-focal
SKIN: Warm, pink, dry. No rash
[2024-04-02 11:54] LABS: Glucose - Point of Care 177 mg/dl (70-99)
[2024-04-02 12:18] LABS: Blood Urea Nitrogen 23 mg/dl (9-20); Calcium 9.3 mg/dl (8.4-10.2); Carbon Dioxide 27 mmol/L (22-30); Chloride 102 mmol/L (98-107); Estimated Creatinine Clearance 64 ml/min; Glucose 141 mg/dl (70-99); Potassium 4.6 mmol/L (3.5-5.1); Sodium 139 mmol/L (135-145); eGFR > 60.00
--- NOTE | 2024-04-02 16:06 | W.PN.ID1 ---
Date of Service
Date of Service: April 02, 2024
Today's Communication
- colonoscopy is planned
- when bacteremia cleared then will place picc line
- continue ampicillin, ceftriaxone x 6 weeks
Assessment / Plan
Fever - improving
Enterococcal bacteremia
Possible endocarditis
TAVR
DM2 - controlled
- repeat blood cultures x2 done today and no growth to date
- UA negative, did not reflex to culture and I wouldn't recommend it
- enterococcal bacteremia - 03/29-03/30 thus far
- colonoscopy is planned
- when bacteremia cleared then will place picc line
- continue ampicillin, ceftriaxone x 6 weeks
- follow clinically
Chief Complaint
-: Fever and Bacteremia
Subjective / Review of Systems
afebrile
bp stable
without leukocytosis
cr stable
04/01 blood cultures no growth to date
no new back pain or changes in vision
Vital Signs / Physical Exam
Vital Signs
Vital Signs
Temp Pulse Resp BP Pulse Ox
98.5 F 76 18 144/71 97
04/02/24 15:00 04/02/24 15:00 04/02/24 15:00 04/02/24 15:00 04/02/24 15:00
Physical Exam
Constitutional: No Acute Distress
Cardiovascular: Regular Rate and S1/S2; Negative Murmur or Rub
Pulmonary: Clear and Symmetric; Negative Wheezes or Rales
Gastrointestinal: Soft, Non Tender, Non Distended and Normal Bowel Sounds
Skin: Warm and Dry; Negative Rash or Jaundice
Objective Data
Lab Data
Lab Results
04/02/24 10:55
04/02/24 10:55
ESR Cancelled 03/29/24 21:51
Estimated Creat Clear 64 ml/min 04/02/24 10:55
Lactic Acid Cancelled 03/30/24 10:30
Total Bilirubin 0.8 mg/dl (0.2-1.3) 04/01/24 05:35
AST 53 U/L (17-59) 04/01/24 05:35
ALT 51 U/L (0-50) H 04/01/24 05:35
Alkaline Phosphatase 79 U/L (38-126) 04/01/24 05:35
C-Reactive Protein Cancelled 03/29/24 21:51
Most recent labs reviewed.
Micro Results:
04/01/24 08:22 Blood Culture - Preliminary
Blood/Venous No Growth in 24 hours- Final report to follow
04/01/24 05:35 Blood Culture - Preliminary
Blood/Venous No Growth in 24 hours- Final report to follow
03/29/24 18:41 Blood Culture - Final
Blood/Venous Enterococcus faecalis
Gram Stain - Final
03/29/24 18:41 Blood Culture - Final
Blood/Venous Enterococcus faecalis
Gram Stain - Final
03/30/24 13:46 Blood Culture - Preliminary
Blood/Venous Enterococcus faecalis
Gram Stain - Preliminary
03/30/24 13:09 Blood Culture - Preliminary
Blood/Venous Enterococcus faecalis
Gram Stain - Preliminary
03/30/24 13:09 Streptococcus pneumoniae Antigen (M - Final
Urine Negative for Streptococcus pneumoniae antigen.
A negative result does not exclude infection with
Streptococcus pneumoniae. Clinical correlation is
recommended.
03/29/24 21:45 Influenza Types A & B (JOSE LUIS) - Final
Nasal Swab Negative for Influenza A & B, NAAT
Negative results must be combined with clinical observations
and patient history.
Nucleic Acid Amplification test (NAAT)performed on the
[employer] platform.
[2024-04-02 16:29] LABS: Glucose - Point of Care 211 mg/dl (70-99)
[2024-04-02] MEDS: LIPITOR 40 MG PO (17:04)
[2024-04-02] MEDS: LOVENOX 40 MG SC (17:04)
[2024-04-02] MEDS: NOVOLOG FLEXPEN-LOW RESISTANCE 2 UNITS SC (17:04)
[2024-04-02 21:52] LABS: Glucose - Point of Care 174 mg/dl (70-99)
[2024-04-03] VITALS (8 sets, daily range): BP systolic 137–160; BP diastolic 54–85; PULSE 73–78; O2SAT 96–97; BMI 35.0
[2024-04-03] MEDS: AMPICILLIN 108 MG IV ×6 (00:34→21:06)
[2024-04-03] MEDS: TYLENOL 650 MG PO (01:38)
[2024-04-03 05:43] LABS: Hematocrit 26.3 % (39.0-52.0); Hemoglobin 8.8 g/dL (13.0-18.0); Mean Corp Hgb Conc. 33.5 g/dL (33.0-37.0); Mean Corpuscular Volume 92.6 fL (80.0-94.0); Mean Platelet Volume 10.4 fL (7.4-10.4); Platelet Count 149 10^3/uL (130-400); Red Blood Cell Count 2.84 10^6/uL (4.70-6.10); Red Cell Dist. Width 13.2 % (11.5-14.5); White Blood Cell Count 8.1 10^3/uL (4.8-10.8)
[2024-04-03 06:15] LABS: Blood Urea Nitrogen 22 mg/dl (9-20); Calcium 9.1 mg/dl (8.4-10.2); Carbon Dioxide 28 mmol/L (22-30); Chloride 102 mmol/L (98-107); Estimated Creatinine Clearance 58 ml/min; Glucose 140 mg/dl (70-99); Potassium 4.2 mmol/L (3.5-5.1); Sodium 139 mmol/L (135-145); eGFR 59.63
--- NOTE | 2024-04-03 07:04 | W.PN.GI.CBS2 ---
Today's Communication / Plan
-
See assessment and plan for details.
Assessment / Plan
-
1. Enterococcus bacteremia: Unclear source, BRANDON negative, also with iron deficiency anemia worry for colonic source. Will plan colonoscopy tomorrow, preparation today.
Subjective
Subjective
Date of Service: April 03, 2024
Patient feeling okay, no significant abdominal pain. Breathing feels okay. BRANDON essentially negative.
Objective
Data Reviewed
Laboratory Data:
Laboratory Results
04/03/24 05:22
04/03/24 05:22
Laboratory Results
Total Bilirubin 0.8 mg/dl (0.2-1.3) 04/01/24 05:35
AST 53 U/L (17-59) 04/01/24 05:35
ALT 51 U/L (0-50) H 04/01/24 05:35
Alkaline Phosphatase 79 U/L (38-126) 04/01/24 05:35
Vital Signs and I&O:
Vital Signs
Temp Pulse Resp BP Pulse Ox
98.2 F 75 18 137/54 95
04/03/24 03:20 04/03/24 03:20 04/03/24 03:20 04/03/24 03:20 04/03/24 03:20
I&O
04/02/24 04/03/24 04/04/24
06:59 06:59 06:59
Intake Total 1926 / 1926 1184 / 1184
Output Total 1500 / 1500 2550 / 2550
Balance 426 / 426 -1366 / -1366
Physical Exam
Physical Exam
General: NAD
Abdomen: normal bowel sounds, soft, no tenderness, no masses or bruits, no ascites
[2024-04-03] MEDS: COREG 3.125 MG PO ×2 (07:54→21:06)
[2024-04-03] MEDS: ASPIR LOW (ENTERIC COATED) 81 MG PO (07:54)
[2024-04-03] MEDS: DESENEX/MITRAZOL/ZEASORB 1 APPLIC TOPICAL ×2 (07:55→21:07)
[2024-04-03 08:18] LABS: Glucose - Point of Care 164 mg/dl (70-99)
[2024-04-03] MEDS: NOVOLOG FLEXPEN-LOW RESISTANCE 1 UNITS SC ×2 (09:38→17:28)
[2024-04-03] MEDS: STERILE WATER FOR INJECTION 20 ML IV ×2 (09:39→23:12)
[2024-04-03] MEDS: ROCEPHIN 2000 MG IV ×2 (09:39→23:13)
--- NOTE | 2024-04-03 11:43 | W.PN.HOSP.TC ---
Today's Communication/Plan
-
Monitor vital signs and see plan
PT/OT
Plan for colonoscopy tomorrow
Continue with antibiotics per infectious disease
Wean oxygen as tolerated
Check chest x-ray
Assessment / Plan
Assessment / Plan
Assessment:
Severe sepsis with enterococcal bacteremia
Positive blood culture from admission with Enterococcus, repeat blood culture 04/01 NGTD
COVID, flu negative
ID following
Echocardiogram without overt signs of endocarditis but with no other source determine, cardiology consulted for BRANDON 04/02/24 neg for endocarditis
other infectious workup UA, CXR, were negative
Continue with Ampicillin, Rocephin per ID
CT abdomen/pelvis without acute abnormality to explain for his bacteremia
GI consulted for colonoscopy, tentatively 04/04
Follow fever curve
Lactic acidosis on admission
Resolved
Mild hypoxic respiratory insufficiency likely secondary to atelectasis
Continue with I-S
check CXR again 04/03
Elevated troponin likely nonischemic myocardial injury
Denies any chest pain
Does have history of CAD with stent
trop peaked at .281
cw ASA
Thrombocytopenia
Monitor
Suspect TME secondary to sepsis
now improving, monitor
MRACOS
Improving
- Trend Cr
- Held chlorthalidone ,Losartan
HLD
- cont RESISTOR TESTER baby ASA and Statin
HX valvular heart dz
s/p TAVR
monitor
echo
Last echo in 12/29 with EF 61%, mild MR,TAVR with peak/mean gradients of 26/13 mmHg, respectively. AV
Dimensionless Index is 0.5. Mild paravalvular aortic regurgitation
Relative hypotension due to sepsis
essential HTN
Blood pressure currently normal,
- Held Losartan, Coreg restarted
NIDDM
- held Metformin
- add ISS low
A1c 6.8
DVT Px: LMWH
Code: Full code
General: Well Developed and Well Nourished
HEENT: Normocephalic and Atraumatic
Respiratory: Negative Wheezes or Rales
Cardiac: Regular Rhythm and S1/S2
Genito-urinary: No Costovertebral Tender
Psych: Calm
I spent a total of 52 minutes with the patient or on the floor. More than 50% of this time involved counseling and coordination of care.
Anticipated Discharge: > 48 hours
Subjective/Interval History
-
Date of Service: April 03, 2024
denies pain
Objective Data
-
Labs:
Laboratory Results
04/03/24
05:22
WBC 8.1
Hgb 8.8 L
Hct 26.3 L
Plt Count 149 D
Sodium 139
Potassium 4.2
Chloride 102
Carbon Dioxide 28
BUN 22 H
Creatinine 1.2
Glucose 140 H
Calcium 9.1
Vital Signs:
Vital Signs
Temp Pulse Resp BP Pulse Ox
99.0 F 74 18 137/85 100
04/03/24 07:00 04/03/24 07:54 04/03/24 07:00 04/03/24 07:54 04/03/24 09:50
I&O
04/02/24 04/03/24 04/04/24
06:59 06:59 06:59
Intake Total 1925 / 1925 1184 / 1184
Output Total 1500 / 1500 2550 / 2550
Balance 426 / 426 -1366 / -1366
[2024-04-03 11:46] LABS: Glucose - Point of Care 242 mg/dl (70-99)
[2024-04-03] MEDS: NOVOLOG FLEXPEN-LOW RESISTANCE 2 UNITS SC (11:50)
--- NOTE | 2024-04-03 16:19 | CM ---
Case management following for d/c planning
Chart reviewed and spoke with pt and at bedside
PT recommending SNF - discussed with pt/spouse - offered choice
Requested referrals be sent to [facility]
Will send referrals in [facility]
Plan - SNF when medically stable
--- NOTE | 2024-04-03 16:33 | W.PN.ID1 ---
Date of Service
Date of Service: April 03, 2024
Today's Communication
- colonoscopy is planned tomorrow
- double lumen picc ordered
- continue ampicillin, ceftriaxone x 6 weeks
Assessment / Plan
Fever - improving
Enterococcal bacteremia
Possible endocarditis
TAVR
DM2 - controlled
- repeat blood cultures x2 done today and no growth to date
- UA negative, did not reflex to culture and I wouldn't recommend it
- enterococcal bacteremia - 03/29-03/30 thus far
- colonoscopy is planned tomorrow
- double lumen picc ordered
- continue ampicillin, ceftriaxone x 6 weeks
- follow clinically
Chief Complaint
-: Fever and Bacteremia
Subjective / Review of Systems
afebrile
bp stable
without leukocytosis
blood cultures clearing
Vital Signs / Physical Exam
Vital Signs
Vital Signs
Temp Pulse Resp BP Pulse Ox
98.1 F 77 18 160/69 97
04/03/24 15:00 04/03/24 15:00 04/03/24 15:00 04/03/24 15:00 04/03/24 15:00
Physical Exam
Constitutional: No Acute Distress
Cardiovascular: Regular Rate and S1/S2; Negative Murmur or Rub
Pulmonary: Clear and Symmetric; Negative Wheezes or Rales
Gastrointestinal: Soft, Non Tender, Non Distended and Normal Bowel Sounds
Skin: Warm and Dry; Negative Rash or Jaundice
Objective Data
Lab Data
Lab Results
04/03/24 05:22
04/03/24 05:22
ESR Cancelled 03/29/24 21:51
Estimated Creat Clear 58 ml/min 04/03/24 05:22
Lactic Acid Cancelled 03/30/24 10:30
Total Bilirubin 0.8 mg/dl (0.2-1.3) 04/01/24 05:35
AST 53 U/L (17-59) 04/01/24 05:35
ALT 51 U/L (0-50) H 04/01/24 05:35
Alkaline Phosphatase 79 U/L (38-126) 04/01/24 05:35
C-Reactive Protein Cancelled 03/29/24 21:51
Most recent labs reviewed.
Micro Results:
04/01/24 08:22 Blood Culture - Preliminary
Blood/Venous No Growth in 48 hours- Final report to follow
04/01/24 05:35 Blood Culture - Preliminary
Blood/Venous No Growth in 48 hours- Final report to follow
03/29/24 18:41 Blood Culture - Final
Blood/Venous Enterococcus faecalis
Gram Stain - Final
03/29/24 18:41 Blood Culture - Final
Blood/Venous Enterococcus faecalis
Gram Stain - Final
03/30/24 13:46 Blood Culture - Preliminary
Blood/Venous Enterococcus faecalis
Gram Stain - Preliminary
03/30/24 13:09 Blood Culture - Preliminary
Blood/Venous Enterococcus faecalis
Gram Stain - Preliminary
03/30/24 13:09 Streptococcus pneumoniae Antigen (M - Final
Urine Negative for Streptococcus pneumoniae antigen.
A negative result does not exclude infection with
Streptococcus pneumoniae. Clinical correlation is
recommended.
03/29/24 21:45 Influenza Types A & B (JOSE LUIS) - Final
Nasal Swab Negative for Influenza A & B, NAAT
Negative results must be combined with clinical observations
and patient history.
Nucleic Acid Amplification test (NAAT)performed on the
[employer] platform.
[2024-04-03 16:39] LABS: NT-proBNP 1100 pg/ml
[2024-04-03 17:16] LABS: Glucose - Point of Care 184 mg/dl (70-99)
[2024-04-03] MEDS: LOVENOX 40 MG SC (17:29)
[2024-04-03] MEDS: NULYTELY SOLUTION 4 LITERS PO (17:29)
[2024-04-03] MEDS: LIPITOR 40 MG PO (17:29)
[2024-04-03 21:25] LABS: Glucose - Point of Care 141 mg/dl (70-99)
[2024-04-04] MEDS: AMPICILLIN 108 MG IV ×6 (00:54→21:00)
[2024-04-04 02:45] VITALS: BP 137/73
[2024-04-04 05:34] VITALS: BMI 34.3
[2024-04-04 05:48] LABS: % Basophils 0.7 % (0-2); % Eosinophils 6.2 % (0-6); % Immature Granulocytes 0.8 % (0-0.5); % Lymphocytes 11.7 % (20.5-51.1); % Neutrophils 67.6 % (42.2-75.2); Absolute Basophils 0.1 10^3/uL (0-0.2); Absolute Eosinophils 0.4 10^3/uL (0-0.7); Absolute Immature Granulocytes 0.1 10^3/uL (0-0.05); Absolute Lymphocytes 0.8 10^3/uL (1.2-3.4); Absolute Monocytes 0.9 10^3/uL (0.1-0.6); Absolute Neutrophils 4.8 10^3/uL (1.4-6.5); Hematocrit 27.2 % (39.0-52.0); Hemoglobin 8.7 g/dL (13.0-18.0); Mean Corpuscular Hgb 30.5 pg (27.0-31.0); Mean Corpuscular Volume 95.4 fL (80.0-94.0); Mean Platelet Volume 10.7 fL (7.4-10.4); Nucleated Red Blood Cells % 0 % (-); Platelet Count 198 10^3/uL (130-400); Red Blood Cell Count 2.85 10^6/uL (4.70-6.10); White Blood Cell Count 7.1 10^3/uL (4.8-10.8)
--- NOTE | 2024-04-04 06:18 | PTCARENOTE ---
@0545; Pt last BM was yellow/brown liquid with 10 marble size hard stools.
[2024-04-04 06:19] LABS: Blood Urea Nitrogen 17 mg/dl (9-20); Calcium 8.9 mg/dl (8.4-10.2); Carbon Dioxide 29 mmol/L (22-30); Chloride 103 mmol/L (98-107); Estimated Creatinine Clearance 70 ml/min; Glucose 154 mg/dl (70-99); Potassium 4.1 mmol/L (3.5-5.1); Sodium 138 mmol/L (135-145); eGFR > 60.00
[2024-04-04 06:34] LABS: Glucose - Point of Care 169 mg/dl (70-99)
[2024-04-04] MEDS: NOVOLOG FLEXPEN-LOW RESISTANCE 1 UNITS SC ×2 (06:38→18:18)
[2024-04-04 07:30] VITALS: BP 160/77
[2024-04-04 08:01] LABS: Glucose - Point of Care 149 mg/dl (70-99)
[2024-04-04] MEDS: LASIX 20 MG IV (08:02)
[2024-04-04] MEDS: COREG 3.125 MG PO ×2 (08:03→21:17)
[2024-04-04] MEDS: ASPIR LOW (ENTERIC COATED) 81 MG PO (08:03)
--- NOTE | 2024-04-04 08:14 | W.PN.GI.CBS2 ---
Today's Communication / Plan
-
Please see assessment and plan for details.
Assessment / Plan
-
1. Enterococcus bacteremia: Unclear source, BRANDON negative, also with iron deficiency anemia worry for colonic source. Unfortunately preparation was not adequate today, will reprep today for tomorrow, as well as with EGD given underlying iron
deficiency.
Subjective
Subjective
Date of Service: April 04, 2024
Patient feeling okay, though unfortunately still having brown stool stool balls, no abdominal pain, nausea or vomiting, denies any shortness of breath.
Objective
Data Reviewed
Laboratory Data:
Laboratory Results
04/04/24 05:31
04/04/24 05:32
Laboratory Results
Total Bilirubin 0.8 mg/dl (0.2-1.3) 04/01/24 05:35
AST 53 U/L (17-59) 04/01/24 05:35
ALT 51 U/L (0-50) H 04/01/24 05:35
Alkaline Phosphatase 79 U/L (38-126) 04/01/24 05:35
Vital Signs and I&O:
Vital Signs
Temp Pulse Resp BP Pulse Ox
98.5 F 78 20 160/77 95
04/04/24 07:30 04/04/24 07:30 04/04/24 07:30 04/04/24 07:30 04/04/24 07:30
I&O
04/03/24 04/04/24 04/05/24
06:59 06:59 06:59
Intake Total 1184 / 1184 2824 / 2824
Output Total 2550 / 2550 700 / 700
Balance -1366 / -1366 2123 / 4
Physical Exam
Physical Exam
General: NAD
Abdomen: normal bowel sounds, soft, no tenderness, no masses or bruits, no ascites
[2024-04-04] MEDS: DESENEX/MITRAZOL/ZEASORB 1 APPLIC TOPICAL ×2 (10:01→22:19)
[2024-04-04] MEDS: STERILE WATER FOR INJECTION 20 ML IV ×2 (11:02→22:24)
[2024-04-04] MEDS: ROCEPHIN 2000 MG IV ×2 (11:02→22:25)
--- NOTE | 2024-04-04 11:04 | W.PN.HOSP.TC ---
Today's Communication/Plan
-
Monitor vital signs see plan
Continue antibiotics
Not adequate prep today, colonoscopy now tomorrow
Restart Coreg, losartan
Trial of Lasix
Assessment / Plan
Assessment / Plan
Assessment:
Severe sepsis with enterococcal bacteremia
Positive blood culture from admission with Enterococcus, repeat blood culture 04/01 NGTD
COVID, flu negative
ID following
Echocardiogram without overt signs of endocarditis but with no other source determine, cardiology consulted for BRANDON 04/02/24 neg for endocarditis
other infectious workup UA, CXR, were negative
Continue with Ampicillin, Rocephin per ID
CT abdomen/pelvis without acute abnormality to explain for his bacteremia
GI consulted for colonoscopy, not adequate prep 04/04, colonoscopy now 04/05
Follow fever curve
Lactic acidosis on admission
Resolved
Mild hypoxic respiratory insufficiency likely secondary to atelectasis and mild iatrogenic fluid overload
Continue with I-S
check CXR 04/03 with mild pulmonary edema; probnp high. suspect iatrogenic fluid overload; trial of lasix
Elevated troponin likely nonischemic myocardial injury
Denies any chest pain
Does have history of CAD with stent
trop peaked at .281
cw ASA
Thrombocytopenia
Monitor
Suspect TME secondary to sepsis
now improving, monitor
MARCOS
Improving
- Trend Cr
- Held chlorthalidone ,Losartan
HLD
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
HX valvular heart dz
s/p TAVR
monitor
echo
Last echo in 12/29 with EF 61%, mild MR,TAVR with peak/mean gradients of 26/13 mmHg, respectively. AV
Dimensionless Index is 0.5. Mild paravalvular aortic regurgitation
Relative hypotension due to sepsis on admission
essential HTN; now blood pressure started to go up
Restart Coreg, losartan, continue to hold chlorthalidone
NIDDM
- held Metformin
- add ISS low
A1c 6.8
DVT Px: LMWH
Code: Full code
General: Well Developed and Well Nourished
HEENT: Normocephalic and Atraumatic
Respiratory: Negative Wheezes or Rales
Cardiac: Regular Rhythm and S1/S2
Genito-urinary: No Costovertebral Tender
Psych: Calm
I spent a total of 51 minutes with the patient or on the floor. More than 50% of this time involved counseling and coordination of care.
Anticipated Discharge: > 48 hours
Subjective/Interval History
-
Date of Service: April 04, 2024
denies pain
Objective Data
-
Labs:
Laboratory Results
04/04/24 04/04/24
05:31 05:32
WBC 7.1
Hgb 8.7 L
Hct 27.2 L
Plt Count 198 D
Sodium 138
Potassium 4.1
Chloride 103
Carbon Dioxide 29
BUN 17
Creatinine 1.0
Glucose 154 H
Calcium 8.9
Vital Signs:
Vital Signs
Temp Pulse Resp BP Pulse Ox
98.5 F 78 20 160/77 95
04/04/24 07:30 04/04/24 07:30 04/04/24 07:30 04/04/24 07:30 04/04/24 07:30
I&O
04/03/24 04/04/24 04/05/24
06:59 06:59 06:59
Intake Total 1184 / 1184 2824 / 2824
Output Total 2550 / 2550 700 / 700
Balance -1366 / -1366 2124 / 2124
[2024-04-04 11:45] VITALS: BP 151/66
[2024-04-04] MEDS: COZAAR 100 MG PO (12:12)
[2024-04-04 12:36] LABS: Glucose - Point of Care 318 mg/dl (70-99)
[2024-04-04] MEDS: NOVOLOG FLEXPEN-LOW RESISTANCE 4 UNITS SC (13:04)
--- NOTE | 2024-04-04 14:20 | CM ---
Case management following for d/c planning
Chart reviewed
Pt for PICC line placement today - will need 6 weeks of Ceftriaxone
For colonoscopy tomorrow
Obtained choices for SNF
CM will follow for d/c needs
Plan - snf when medically stable
--- NOTE | 2024-04-04 15:00 | PN.CDI ---
CDI
- -
CDI:
Physician Documentation Request
Admit Date: 03/29/24 22:31
Dear Doctor Ross,
Patient is admitted with Severe sepsis with enterococcal bacteremia.
Progress notes have a diagnosis of MARCOS.
Creatinine resulted as follows:
03/29/24 03/30/24 03/31/24
18:41 09:01 05:32
Creatinine 1.4 H 1.3 1.1
04/02/24 04/03/24 04/04/24
10:55 05:22 05:32
Creatinine 1.1 1.2 1.0
Criteria for MARCOS*
1 Increase in serum creatinine by > or = to 0.3 mg/dL (> or = to 26.5 micromol/L) within 48 hours, OR
2 Increase in serum creatinine to > or = to 1.5 times baseline, which is known or presumed to have occurred within 7 days, OR
3 Urine volume < 0.5 nL/kg/hour for six hours
Based on the above information and the recognized standard for MARCOS could you please verify this diagnoses is still accurate and reflective of the patient�s condition to ensure quality of the medical record.
Please clarify in the Progress Notes:
�MARCOS is/was present and is a clinical diagnosis based on (please include this additional support in the medical record)
�After study MARCOS has been ruled out
�Other
Use of terms such as suspected, likely, concern for, or probable (associated with a specific diagnosis that is being evaluated, monitored, or treated as if it exists) are acceptable and can be coded in the inpatient setting, when documented at the
time of discharge.
Thank you,
Melvi Francis RN, BSN
CDI Specialist
tiger text
Please use your independent medical judgment in providing your response.
[2024-04-04 15:30] VITALS: BP 136/63
--- NOTE | 2024-04-04 16:31 | W.PN.ID1 ---
Date of Service
Date of Service: April 04, 2024
Today's Communication
- colonoscopy/endoscopy is planned tomorrow - reprepping as not adequate
- double lumen picc
- continue ampicillin, ceftriaxone x 6 weeks through 05/10/24 - orders on the paper chart
- follow clinically
Assessment / Plan
Fever - improving
Enterococcal bacteremia
Possible endocarditis
TAVR
DM2 - controlled
- repeat blood cultures x2 NG at 72 horus
- enterococcal bacteremia - 03/29-03/30
- colonoscopy/endoscopy is planned tomorrow - reprepping as not adequate
- double lumen picc
- continue ampicillin, ceftriaxone x 6 weeks through 05/10/24 - orders on the paper chart
- follow clinically
Chief Complaint
-: Fever and Bacteremia
Subjective / Review of Systems
no further fevers
bp stable
without leukocytosis
cr stable
04/01 blood cultures no growth at 72 hours
Vital Signs / Physical Exam
Vital Signs
Vital Signs
Temp Pulse Resp BP Pulse Ox
98.7 F 66 20 136/63 94
04/04/24 15:30 04/04/24 15:30 04/04/24 15:30 04/04/24 15:30 04/04/24 15:30
Physical Exam
Constitutional: No Acute Distress
Cardiovascular: Regular Rate and S1/S2; Negative Murmur or Rub
Pulmonary: Clear and Symmetric; Negative Wheezes or Rales
Gastrointestinal: Soft, Non Tender, Non Distended and Normal Bowel Sounds
Skin: Warm and Dry; Negative Rash or Jaundice
Lines: PICC
Objective Data
Lab Data
Lab Results
04/04/24 05:31
04/04/24 05:32
ESR Cancelled 03/29/24 21:51
Estimated Creat Clear 70 ml/min 04/04/24 05:32
Lactic Acid Cancelled 03/30/24 10:30
Total Bilirubin 0.8 mg/dl (0.2-1.3) 04/01/24 05:35
AST 53 U/L (17-59) 04/01/24 05:35
ALT 51 U/L (0-50) H 04/01/24 05:35
Alkaline Phosphatase 79 U/L (38-126) 04/01/24 05:35
C-Reactive Protein Cancelled 03/29/24 21:51
Most recent labs reviewed.
Micro Results:
04/01/24 08:22 Blood Culture - Preliminary
Blood/Venous No Growth in 72 hours- Final report to follow
04/01/24 05:35 Blood Culture - Preliminary
Blood/Venous No Growth in 72 hours- Final report to follow
03/29/24 18:41 Blood Culture - Final
Blood/Venous Enterococcus faecalis
Gram Stain - Final
03/29/24 18:41 Blood Culture - Final
Blood/Venous Enterococcus faecalis
Gram Stain - Final
03/30/24 13:46 Blood Culture - Preliminary
Blood/Venous Enterococcus faecalis
Gram Stain - Preliminary
03/30/24 13:09 Blood Culture - Preliminary
Blood/Venous Enterococcus faecalis
Gram Stain - Preliminary
03/30/24 13:09 Streptococcus pneumoniae Antigen (M - Final
Urine Negative for Streptococcus pneumoniae antigen.
A negative result does not exclude infection with
Streptococcus pneumoniae. Clinical correlation is
recommended.
03/29/24 21:45 Influenza Types A & B (JOSE LUIS) - Final
Nasal Swab Negative for Influenza A & B, NAAT
Negative results must be combined with clinical observations
and patient history.
Nucleic Acid Amplification test (NAAT)performed on the
[employer] platform.
[2024-04-04] MEDS: LIPITOR 40 MG PO (17:11)
[2024-04-04] MEDS: LOVENOX 40 MG SC (17:11)
[2024-04-04] MEDS: NULYTELY SOLUTION 4 LITERS PO (17:13)
[2024-04-04 17:29] LABS: Glucose - Point of Care 150 mg/dl (70-99)
[2024-04-04 21:10] VITALS: BP 153/69
[2024-04-04 21:26] LABS: Glucose - Point of Care 172 mg/dl (70-99)
[2024-04-04 23:10] VITALS: BP 153/57
[2024-04-05] VITALS (12 sets, daily range): BP systolic 12–154; BP diastolic 50–87; BMI 33.6
[2024-04-05] MEDS: AMPICILLIN 108 MG IV ×6 (00:07→19:42)
[2024-04-05] MEDS: FLUSH (NSS) 2 FLUSH IV ×3 (00:08→17:17)
[2024-04-05 05:24] LABS: % Basophils 0.8 % (0-2); % Eosinophils 7.8 % (0-6); % Immature Granulocytes 0.6 % (0-0.5); % Lymphocytes 12.4 % (20.5-51.1); % Monocytes 12.1 % (1.7-9.3); % Neutrophils 66.3 % (42.2-75.2); Absolute Basophils 0.1 10^3/uL (0-0.2); Absolute Eosinophils 0.5 10^3/uL (0-0.7); Absolute Lymphocytes 0.8 10^3/uL (1.2-3.4); Absolute Monocytes 0.8 10^3/uL (0.1-0.6); Absolute Neutrophils 4.4 10^3/uL (1.4-6.5); Hematocrit 27.2 % (39.0-52.0); Hemoglobin 8.8 g/dL (13.0-18.0); Mean Corp Hgb Conc. 32.4 g/dL (33.0-37.0); Mean Corpuscular Hgb 30.9 pg (27.0-31.0); Mean Corpuscular Volume 95.4 fL (80.0-94.0); Mean Platelet Volume 10.8 fL (7.4-10.4); Nucleated Red Blood Cells % 0 % (-); Platelet Count 248 10^3/uL (130-400); Red Blood Cell Count 2.85 10^6/uL (4.70-6.10); Red Cell Dist. Width 13.1 % (11.5-14.5); White Blood Cell Count 6.6 10^3/uL (4.8-10.8)
[2024-04-05 05:47] LABS: Blood Urea Nitrogen 14 mg/dl (9-20); Carbon Dioxide 31 mmol/L (22-30); Chloride 103 mmol/L (98-107); Estimated Creatinine Clearance 70 ml/min; Glucose 117 mg/dl (70-99); Sodium 141 mmol/L (135-145); eGFR > 60.00
[2024-04-05 06:04] LABS: Glucose - Point of Care 131 mg/dl (70-99)
[2024-04-05] MEDS: NOVOLOG FLEXPEN-LOW RESISTANCE SC ×2 (06:46→12:47)
[2024-04-05] MEDS: ASPIR LOW (ENTERIC COATED) 81 MG PO (08:41)
[2024-04-05] MEDS: COREG 3.125 MG PO ×2 (08:41→19:42)
[2024-04-05] MEDS: COZAAR 100 MG PO (08:41)
[2024-04-05] MEDS: DESENEX/MITRAZOL/ZEASORB 1 APPLIC TOPICAL (08:42)
[2024-04-05 10:12] LABS: Glucose - Point of Care 144 mg/dl (70-99)
--- NOTE | 2024-04-05 10:41 | W.PN.HOSP.TC ---
Today's Communication/Plan
-
Monitor vital signs and see plan
PT/OT recommend SNF. staff training and development manager following
Right PICC line placed for antibiotics
Give IV Lasix today
Wean oxygen as tolerated
Discussed with spouse at bedside
Assessment / Plan
Assessment / Plan
Assessment:
Severe sepsis with enterococcal bacteremia
Positive blood culture from admission with Enterococcus, repeat blood culture 04/01 NGTD
COVID, flu negative
ID following
Echocardiogram without overt signs of endocarditis but with no other source determine, cardiology consulted for BRANDON 04/02/24 neg for endocarditis
other infectious workup UA, CXR, were negative
Continue with Ampicillin, Rocephin per ID. Right PICC placed
CT abdomen/pelvis without acute abnormality to explain for his bacteremia
GI consulted for colonoscopy, not adequate prep 04/04, colonoscopy now 04/05 with hemorrhoids, diverticulosis.
Follow fever curve
Lactic acidosis on admission
Resolved
Mild hypoxic respiratory insufficiency likely secondary to atelectasis and mild iatrogenic fluid overload
Continue with I-S
check CXR 04/03 with mild pulmonary edema; probnp high. suspect iatrogenic fluid overload; trial of lasix
on 3 L; wean o2 as tolerated
Elevated troponin likely nonischemic myocardial injury
Denies any chest pain
Does have history of CAD with stent
trop peaked at .281
cw ASA
Thrombocytopenia
Monitor
Suspect TME secondary to sepsis
now improving, monitor
Renal insufficiency
Improving
- Trend Cr
- Held chlorthalidone
losartan restarted
HLD
- cont LAMPS TESTER AND INSPECTOR baby ASA and Statin
HX valvular heart dz
s/p TAVR
monitor
echo
Last echo in 12/29 with EF 61%, mild MR,TAVR with peak/mean gradients of 26/13 mmHg, respectively. AV
Dimensionless Index is 0.5. Mild paravalvular aortic regurgitation
Relative hypotension due to sepsis on admission
essential HTN; now blood pressure started to go up
Restart Coreg, losartan, continue to hold chlorthalidone
NIDDM
- held Metformin
- add ISS low
A1c 6.8
DVT Px: LMWH
Code: Full code
PT/OT recommendation SNF
General: Well Developed and Well Nourished
HEENT: Normocephalic and Atraumatic
Respiratory: Negative Wheezes or Rales
Cardiac: Regular Rhythm and S1/S2
Genito-urinary: No Costovertebral Tender
Psych: Calm
I spent a total of 52 minutes with the patient or on the floor. More than 50% of this time involved counseling and coordination of care.
Anticipated Discharge: Within 24 hours
Subjective/Interval History
-
Date of Service: April 05, 2024
Objective Data
-
Labs:
Laboratory Results
04/05/24
04:41
WBC 6.6
Hgb 8.8 L
Hct 27.2 L
Plt Count 248 D
Sodium 141
Potassium 4.0
Chloride 103
Carbon Dioxide 31 H
BUN 14
Creatinine 1.0
Glucose 117 H
Calcium 9.0
Vital Signs:
Vital Signs
Temp Pulse Resp BP Pulse Ox
98.7 F 71 19 136/87 93
04/05/24 10:02 04/05/24 10:29 04/05/24 10:29 04/05/24 10:15 04/05/24 10:15
I&O
04/04/24 04/05/24 04/06/24
06:59 06:59 06:59
Intake Total 2824 / 2824 924 / 924
Output Total 700 / 700 3725 / 3725
Balance 2124 / 2124 -2801 / -2801
[2024-04-05] MEDS: STERILE WATER FOR INJECTION 20 ML IV ×2 (11:16→21:15)
[2024-04-05] MEDS: ROCEPHIN 2000 MG IV ×2 (11:16→21:15)
[2024-04-05] MEDS: LASIX 20 MG IV (12:22)
[2024-04-05 12:40] LABS: Glucose - Point of Care 196 mg/dl (70-99)
[2024-04-05] MEDS: NOVOLOG FLEXPEN-LOW RESISTANCE 1 UNITS SC ×2 (12:44→18:20)
--- NOTE | 2024-04-05 13:06 | CM ---
Addendum entered by Cary Flores 04/05/24 13:17:
Per Attending's note, he anticipates that patient will be stable for DC within 24 hours
Contacted Desiree Barillas @ [facility] for bed availability. No bed available at [facility] this weekend.
Desiree responded that she will re-assess on Monday, 04/08. CM will follow up
Original Note:
Chart reviewed: Right PICC line placed for ABX; IV Lasix today, Wean O2 as tolerated
[facility] accepted referral pending bed availability; no beds @ [facility]
Plan: DC to SNF when medically stable
--- NOTE | 2024-04-05 13:10 | PTCARENOTE ---
patient returned from GI lab via stretcher aaox3, blackfeet b/l, denies pain, lungs clear b/l, +CHOU, apical regular, abd obese, round, hypo bsx4 quads, nontender, nondistended. ambulated from stretcher to bed with use of rolling walker and assist x1,
vss, will continue to monitor.
--- NOTE | 2024-04-05 13:12 | PTCARENOTE ---
pt tolerating regular diet, will continue to monitor.
--- NOTE | 2024-04-05 15:51 | W.PN.ID1 ---
Date of Service
Date of Service: April 05, 2024
Today's Communication
- double lumen picc
- continue ampicillin, ceftriaxone x 6 weeks through 05/10/24 - orders on the paper chart
- stable for dc from ID perspective; patient is going to a SNF and will defer to MDs there to follow patient. recommend weekly cbc with differ and cmp while on IV antibiotics.
Please recall if there are further questions.
Assessment / Plan
Enterococcal bacteremia
Possible endocarditis
TAVR
DM2 - controlled
- repeat blood cultures x2 NG at 72 hours
- enterococcal bacteremia - 03/29-03/30
- colonoscopy with multiple polyps
- double lumen picc
- continue ampicillin, ceftriaxone x 6 weeks through 05/10/24 - orders on the paper chart
- stable for dc from ID perspective; patient is going to a SNF and will defer to MDs there to follow patient. recommend weekly cbc with differ and cmp while on IV antibiotics.
Please recall if there are further questions.
Chief Complaint
-: Fever and Bacteremia
Subjective / Review of Systems
afebrile
bp stable
without leukcytosis
cr stable
blood cultures remain negative
Vital Signs / Physical Exam
Vital Signs
Vital Signs
Temp Pulse Resp BP Pulse Ox
99 F 70 2 148/50 97
04/05/24 12:15 04/05/24 12:15 04/05/24 12:15 04/05/24 12:15 04/05/24 12:15
Physical Exam
Constitutional: No Acute Distress
Cardiovascular: Regular Rate and S1/S2; Negative Murmur or Rub
Pulmonary: Clear and Symmetric; Negative Wheezes or Rales
Gastrointestinal: Soft, Non Tender, Non Distended and Normal Bowel Sounds
Skin: Warm and Dry; Negative Rash or Jaundice
Lines: PICC
Objective Data
Lab Data
Lab Results
04/05/24 04:41
04/05/24 04:41
ESR Cancelled 03/29/24 21:51
Estimated Creat Clear 70 ml/min 04/05/24 04:41
Lactic Acid Cancelled 03/30/24 10:30
Total Bilirubin 0.8 mg/dl (0.2-1.3) 04/01/24 05:35
AST 53 U/L (17-59) 04/01/24 05:35
ALT 51 U/L (0-50) H 04/01/24 05:35
Alkaline Phosphatase 79 U/L (38-126) 04/01/24 05:35
C-Reactive Protein Cancelled 03/29/24 21:51
Most recent labs reviewed.
Micro Results:
04/01/24 08:22 Blood Culture - Preliminary
Blood/Venous No Growth in 4 days- Final report to follow
04/01/24 05:35 Blood Culture - Preliminary
Blood/Venous No Growth in 4 days- Final report to follow
03/29/24 18:41 Blood Culture - Final
Blood/Venous Enterococcus faecalis
Gram Stain - Final
03/29/24 18:41 Blood Culture - Final
Blood/Venous Enterococcus faecalis
Gram Stain - Final
03/30/24 13:46 Blood Culture - Preliminary
Blood/Venous Enterococcus faecalis
Gram Stain - Preliminary
03/30/24 13:09 Blood Culture - Preliminary
Blood/Venous Enterococcus faecalis
Gram Stain - Preliminary
03/30/24 13:09 Streptococcus pneumoniae Antigen (M - Final
Urine Negative for Streptococcus pneumoniae antigen.
A negative result does not exclude infection with
Streptococcus pneumoniae. Clinical correlation is
recommended.
03/29/24 21:45 Influenza Types A & B (JOSE LUIS) - Final
Nasal Swab Negative for Influenza A & B, NAAT
Negative results must be combined with clinical observations
and patient history.
Nucleic Acid Amplification test (NAAT)performed on the
[employer] platform.
[2024-04-05] MEDS: LIPITOR 40 MG PO (17:14)
[2024-04-05] MEDS: LOVENOX 40 MG SC (17:15)
[2024-04-05 17:28] LABS: Glucose - Point of Care 151 mg/dl (70-99)
[2024-04-05] MEDS: DESENEX/MITRAZOL/ZEASORB TOPICAL (19:46)
[2024-04-05 21:46] LABS: Glucose - Point of Care 182 mg/dl (70-99)
[2024-04-06] MEDS: AMPICILLIN 108 MG IV ×7 (00:17→23:41)
[2024-04-06 06:00] VITALS: BMI 33.5
[2024-04-06 06:15] LABS: % Basophils 0.5 % (0-2); % Eosinophils 6.9 % (0-6); % Immature Granulocytes 0.9 % (0-0.5); % Lymphocytes 10.8 % (20.5-51.1); % Monocytes 9.8 % (1.7-9.3); % Neutrophils 71.1 % (42.2-75.2); Absolute Eosinophils 0.6 10^3/uL (0-0.7); Absolute Immature Granulocytes 0.1 10^3/uL (0-0.05); Absolute Lymphocytes 0.9 10^3/uL (1.2-3.4); Absolute Monocytes 0.8 10^3/uL (0.1-0.6); Absolute Neutrophils 5.8 10^3/uL (1.4-6.5); Hematocrit 25.8 % (39.0-52.0); Hemoglobin 8.5 g/dL (13.0-18.0); Mean Corp Hgb Conc. 32.9 g/dL (33.0-37.0); Mean Corpuscular Hgb 30.8 pg (27.0-31.0); Mean Corpuscular Volume 93.5 fL (80.0-94.0); Mean Platelet Volume 10.4 fL (7.4-10.4); Nucleated Red Blood Cells % 0 % (-); Platelet Count 264 10^3/uL (130-400); Red Blood Cell Count 2.76 10^6/uL (4.70-6.10); White Blood Cell Count 8.1 10^3/uL (4.8-10.8)
[2024-04-06 06:27] LABS: Blood Urea Nitrogen 16 mg/dl (9-20); Calcium 9.1 mg/dl (8.4-10.2); Carbon Dioxide 28 mmol/L (22-30); Chloride 102 mmol/L (98-107); Estimated Creatinine Clearance 69 ml/min; Glucose 152 mg/dl (70-99); Potassium 3.9 mmol/L (3.5-5.1); Sodium 140 mmol/L (135-145); eGFR > 60.00
[2024-04-06 07:00] VITALS: BP 167/76
[2024-04-06 08:08] LABS: Glucose - Point of Care 134 mg/dl (70-99)
[2024-04-06] MEDS: NOVOLOG FLEXPEN-LOW RESISTANCE SC ×2 (08:13→17:12)
[2024-04-06] MEDS: COZAAR 100 MG PO (08:14)
[2024-04-06] MEDS: COREG 3.125 MG PO ×2 (08:14→20:27)
[2024-04-06] MEDS: ASPIR LOW (ENTERIC COATED) 81 MG PO (08:14)
[2024-04-06] MEDS: DESENEX/MITRAZOL/ZEASORB 1 APPLIC TOPICAL ×2 (08:15→20:31)
--- NOTE | 2024-04-06 10:01 | W.PN.HOSP.TC ---
Today's Communication/Plan
-
.
Assessment / Plan
Assessment / Plan
Physical exam:
General: Well Developed and Well Nourished. Obese
HEENT: Normocephalic and Atraumatic
Respiratory: Negative Wheezes or Rales
Cardiac: Regular Rhythm and S1/S2
GI: Soft abdomen, non tender.
Genito-urinary: No Costovertebral Tender
Neuro: AAO to self and surroundings, he followed commands.
Psych: Calm
# Severe sepsis with enterococcal bacteremia
Positive blood culture from admission with Enterococcus, repeat blood culture 04/01 NGTD
COVID, flu negative
ID following
Echocardiogram without overt signs of endocarditis but with no other source determine, cardiology consulted for BRANDON 04/02/24 neg for endocarditis
other infectious workup UA, CXR, were negative
continue ampicillin, ceftriaxone x 6 weeks through 05/10/24. Right PICC placed
CT abdomen/pelvis without acute abnormality to explain for his bacteremia
GI consulted for colonoscopy, not adequate prep 04/04, colonoscopy 04/05 with hemorrhoids, diverticulosis.
Lactic acidosis on admission
Resolved
Mild hypoxic respiratory insufficiency likely secondary to atelectasis and mild iatrogenic fluid overload
Continue with I-S
check CXR 04/03 with mild pulmonary edema; probnp high. suspect iatrogenic fluid overload; trial of lasix
on 2 L; weaned off O2 this morning.
Elevated troponin likely nonischemic myocardial injury
Denies any chest pain
Does have history of CAD with stent
trop peaked at .281
cw ASA
Thrombocytopenia
Monitor
Suspect TME secondary to sepsis
now improving, monitor
# MARCOS with Renal insufficiency
Improving
- Resume chlorthalidone
losartan restarted
# Essential HTN
resumed Losartan, will resume amlodipine since SBP > 150.
HLD
- cont SANITARY ENGINEER baby ASA and Statin
HX valvular heart dz
s/p TAVR
monitor
echo
Last echo in 12/29 with EF 61%, mild MR,TAVR with peak/mean gradients of 26/13 mmHg, respectively. AV
Dimensionless Index is 0.5. Mild paravalvular aortic regurgitation
Relative hypotension due to sepsis on admission
essential HTN; now blood pressure started to go up
Restart Coreg, losartan, continue to hold chlorthalidone
NIDDM
- Resume Metformin
- add ISS low
A1c 6.8
DVT Px: LMWH
Code: Full code
PT/OT recommendation SNF
Total time spent to see the patient on the floor, examine the patient, review data and lab results, discuss treatment plan with patient, nursing staff around 55 minutes
Anticipated Discharge: 24 - 48 hours
Subjective/Interval History
-
Date of Service: April 06, 2024
No chest pain, no sob
no fevers
no complaints this morning
Objective Data
-
Labs:
Laboratory Results
04/06/24
05:27
WBC 8.1
Hgb 8.5 L
Hct 25.8 L
Plt Count 264
Sodium 140
Potassium 3.9
Chloride 102
Carbon Dioxide 28
BUN 16
Creatinine 1.0
Glucose 152 H
Calcium 9.1
Vital Signs:
Vital Signs
Temp Pulse Resp BP Pulse Ox
99.0 F 77 17 167/76 94
04/06/24 07:00 04/06/24 07:00 04/06/24 07:00 04/06/24 07:00 04/06/24 08:20
I&O
04/05/24 04/06/24 04/07/24
06:59 06:59 06:59
Intake Total 924 / 924 1888 / 1888
Output Total 3725 / 3725 2600 / 2600
Balance -2801 / -2801 -712 / -712
[2024-04-06] MEDS: STERILE WATER FOR INJECTION 20 ML IV ×2 (10:10→22:35)
[2024-04-06] MEDS: ROCEPHIN 2000 MG IV ×2 (10:10→22:35)
[2024-04-06] MEDS: NORVASC 5 MG PO (10:45)
[2024-04-06 11:39] LABS: Glucose - Point of Care 233 mg/dl (70-99)
[2024-04-06] MEDS: NOVOLOG FLEXPEN-LOW RESISTANCE 2 UNITS SC (12:18)
[2024-04-06 13:37] VITALS: BP 148/56
[2024-04-06 13:41] LABS: Glucose - Point of Care 292 mg/dl (70-99)
--- NOTE | 2024-04-06 14:00 | PTCARENOTE ---
Attempted O2 weaning today - in early AM 87% on RA, 94% on 1L. After lunch pt c/o feeling SOB, little tachypneic, orthopneic. Pulse ox at that time 94% on 1L - all other VS stable. TT to , ordered one time IV lasix.
[2024-04-06] MEDS: LASIX 40 MG IV (14:20)
--- NOTE | 2024-04-06 15:01 | PTCARENOTE ---
Voided 550ml clear/yellow urine. Reports feeling much better. Ambulated with PT on RA - maintained >89%, denied SOB during ambulation. Appears comfortable.
[2024-04-06 15:08] VITALS: BP 152/73; PULSE 73; O2SAT 98
[2024-04-06 15:30] VITALS: BP 167/72
[2024-04-06 17:04] LABS: Glucose - Point of Care 135 mg/dl (70-99)
[2024-04-06] MEDS: LOVENOX 40 MG SC (17:11)
[2024-04-06] MEDS: LIPITOR 40 MG PO (17:12)
[2024-04-06] MEDS: GLUCOPHAGE 1000 MG PO (17:12)
[2024-04-06] MEDS: Hygroton 25 MG PO (17:12)
[2024-04-06 20:14] VITALS: BP 158/62
[2024-04-06 21:34] LABS: Glucose - Point of Care 167 mg/dl (70-99)
[2024-04-06 22:18] VITALS: BP 158/76
[2024-04-07] MEDS: AMPICILLIN 108 MG IV ×6 (03:47→23:55)
[2024-04-07] MEDS: ROBITUSSIN 100 MG PO (03:58)
[2024-04-07 06:00] VITALS: BMI 32.9
[2024-04-07 06:18] LABS: Hematocrit 28.8 % (39.0-52.0); Hemoglobin 9.5 g/dL (13.0-18.0); Mean Corpuscular Hgb 30.5 pg (27.0-31.0); Mean Corpuscular Volume 92.6 fL (80.0-94.0); Platelet Count 285 10^3/uL (130-400); Red Blood Cell Count 3.11 10^6/uL (4.70-6.10); Red Cell Dist. Width 12.7 % (11.5-14.5); White Blood Cell Count 10.3 10^3/uL (4.8-10.8)
[2024-04-07 06:45] LABS: Blood Urea Nitrogen 14 mg/dl (9-20); Calcium 9.6 mg/dl (8.4-10.2); Carbon Dioxide 27 mmol/L (22-30); Chloride 102 mmol/L (98-107); Estimated Creatinine Clearance 69 ml/min; Glucose 126 mg/dl (70-99); Potassium 3.7 mmol/L (3.5-5.1); Sodium 141 mmol/L (135-145); eGFR > 60.00
[2024-04-07 07:00] VITALS: BP 124/93
[2024-04-07 08:03] LABS: Glucose - Point of Care 133 mg/dl (70-99)
[2024-04-07] MEDS: NORVASC 5 MG PO (08:47)
[2024-04-07] MEDS: ASPIR LOW (ENTERIC COATED) 81 MG PO (08:47)
[2024-04-07] MEDS: GLUCOPHAGE 1000 MG PO ×2 (08:47→17:35)
[2024-04-07] MEDS: COZAAR 100 MG PO (08:47)
[2024-04-07] MEDS: LASIX 40 MG IV (08:48)
[2024-04-07] MEDS: NOVOLOG FLEXPEN-LOW RESISTANCE SC (08:48)
[2024-04-07] MEDS: FLUSH (NSS) 2 FLUSH IV ×2 (08:49→23:55)
[2024-04-07] MEDS: DESENEX/MITRAZOL/ZEASORB 1 APPLIC TOPICAL ×2 (08:54→20:43)
[2024-04-07] MEDS: COREG 3.125 MG PO ×2 (09:34→20:42)
[2024-04-07] MEDS: STERILE WATER FOR INJECTION 20 ML IV ×2 (10:07→22:06)
[2024-04-07] MEDS: ROCEPHIN 2000 MG IV ×2 (10:07→22:06)
--- NOTE | 2024-04-07 10:57 | W.PN.HOSP.TC ---
Today's Communication/Plan
-
Lasix
IV Abx
DC Planning
Assessment / Plan
Assessment / Plan
Physical exam:
General: Well Developed and Well Nourished. Obese
HEENT: Normocephalic and Atraumatic
Respiratory: Negative Wheezes or Rales
Cardiac: Regular Rhythm and S1/S2
GI: Soft abdomen, non tender.
Genito-urinary: No Costovertebral Tender
Neuro: AAO to self and surroundings, he followed commands.
Psych: Calm
# Severe sepsis/ septic shock with enterococcal bacteremia
Positive blood culture from admission with Enterococcus, repeat blood culture 04/01 NGTD
COVID, flu negative
ID following
Echocardiogram without overt signs of endocarditis but with no other source determine, cardiology consulted for BRANDON 04/02/24 neg for endocarditis
other infectious workup UA, CXR, were negative
continue ampicillin, ceftriaxone x 6 weeks through 05/10/24. Right PICC placed
CT abdomen/pelvis without acute abnormality to explain for his bacteremia
GI consulted for colonoscopy, not adequate prep 04/04, colonoscopy 04/05 with hemorrhoids, diverticulosis.
#Lactic acidosis on admission
Resolved
# acute on chronic HFrEF
Last echo showed LVEF 45-50%, mild cLVH, mild anteroseptal hypokinesis, s/p TAVR with peak/mean gradients 35/20 mmHg, mild TR, estimated PAP 41 mmHg
Acute hypoxic respiratory failure with need for O2 3 liters and feeling distressed.
Continue with I-S
check CXR 04/03 with mild pulmonary edema; pro-bnp high.
Given Lasix on 04/06 and 04/07
Off O2 now after Lasix.
Elevated troponin likely nonischemic myocardial injury
Denies any chest pain
Does have history of CAD with stent
trop peaked at .281
cw ASA
Thrombocytopenia
Monitored, no bleeding.
Suspect TME secondary to sepsis
now improving, monitor
# MARCOS with Renal insufficiency
Resolved.
- Resume chlorthalidone
losartan restarted
# Essential HTN
resumed Losartan, resumed amlodipine.
HLD
- cont MATHEMATICS IMPROVEMENT TEACHER baby ASA and Statin
HX valvular heart dz
s/p TAVR
monitor
Relative hypotension due to sepsis on admission
essential HTN;
Restarted Coreg, losartan,amlodipine and chlorthalidone
NIDDM
- Resumed Metformin
- added ISS low
A1c 6.8
DVT Px: LMWH
Code: Full code
PT/OT recommendation SNF
Total time spent to see the patient on the floor, examine the patient, review data and lab results, discuss treatment plan with patient, nursing staff around 67 minutes
Anticipated Discharge: Within 24 hours
Subjective/Interval History
-
Date of Service: April 07, 2024
No chest pain
No sob
No abd pain
Objective Data
-
Labs:
Laboratory Results
04/07/24
06:04
WBC 10.3
Hgb 9.5 L
Hct 28.8 L
Plt Count 285
Sodium 141
Potassium 3.7
Chloride 102
Carbon Dioxide 27
BUN 14
Creatinine 1.0
Glucose 126 H
Calcium 9.6
Vital Signs:
Vital Signs
Temp Pulse Resp BP Pulse Ox
98.4 F 82 17 124/93 95
04/07/24 07:00 04/07/24 07:00 04/07/24 07:00 04/07/24 07:00 04/07/24 07:00
I&O
04/06/24 04/07/24 04/08/24
06:59 06:59 06:59
Intake Total 1888 / 1888 185 / 1852
Output Total 2600 / 2600 3450 / 3450
Balance -712 / -712 -1598 / -1598
[2024-04-07 11:47] LABS: Glucose - Point of Care 196 mg/dl (70-99)
[2024-04-07] MEDS: NOVOLOG FLEXPEN-LOW RESISTANCE 1 UNITS SC ×2 (12:57→18:16)
--- NOTE | 2024-04-07 13:07 | PTCARENOTE ---
patient with mild sob with exertion, tolerating diet, transferring to br with assist x1 to br, vss, will continue to monitor.
--- NOTE | 2024-04-07 16:41 | PTCARENOTE ---
patient c/o 'tinkle in throat' and post nasal drip. reports he received Robitussin last night but it only last a couple hours. notified Dr. Haywood and requested Robitussin 200mgs po prn as patient received 100mgs, order to be placed by her. will
continue to monitor.
[2024-04-07 16:49] LABS: Glucose - Point of Care 163 mg/dl (70-99)
[2024-04-07] MEDS: Hygroton 25 MG PO (17:41)
[2024-04-07] MEDS: ROBITUSSIN 200 MG PO (17:41)
[2024-04-07] MEDS: LIPITOR 40 MG PO (17:41)
[2024-04-07] MEDS: LOVENOX 40 MG SC (17:42)
[2024-04-07 20:29] VITALS: BP 153/60
[2024-04-07 21:35] LABS: Glucose - Point of Care 149 mg/dl (70-99)
[2024-04-07 22:53] VITALS: BP 124/73
[2024-04-08] MEDS: AMPICILLIN 108 MG IV ×5 (04:11→21:39)
[2024-04-08] MEDS: FLUSH (NSS) 2 FLUSH IV (04:12)
[2024-04-08 06:00] VITALS: BMI 33.1
[2024-04-08 07:00] VITALS: BP 167/73
[2024-04-08 07:26] LABS: Hemoglobin 9.8 g/dL (13.0-18.0); Mean Corp Hgb Conc. 32.7 g/dL (33.0-37.0); Mean Corpuscular Hgb 30.3 pg (27.0-31.0); Mean Corpuscular Volume 92.9 fL (80.0-94.0); Mean Platelet Volume 10.2 fL (7.4-10.4); Platelet Count 330 10^3/uL (130-400); Red Blood Cell Count 3.23 10^6/uL (4.70-6.10); Red Cell Dist. Width 12.8 % (11.5-14.5)
[2024-04-08 08:01] LABS: Blood Urea Nitrogen 18 mg/dl (9-20); Calcium 9.3 mg/dl (8.4-10.2); Carbon Dioxide 28 mmol/L (22-30); Chloride 101 mmol/L (98-107); Estimated Creatinine Clearance 62 ml/min; Glucose 118 mg/dl (70-99); Sodium 139 mmol/L (135-145); eGFR > 60.00
[2024-04-08 08:22] VITALS: PULSE 78; O2SAT 98
[2024-04-08] MEDS: COZAAR 100 MG PO (09:02)
[2024-04-08] MEDS: ASPIR LOW (ENTERIC COATED) 81 MG PO (09:02)
[2024-04-08] MEDS: NOVOLOG FLEXPEN-LOW RESISTANCE SC (09:02)
[2024-04-08 09:03] LABS: Glucose - Point of Care 133 mg/dl (70-99)
[2024-04-08] MEDS: NORVASC 5 MG PO (09:03)
[2024-04-08] MEDS: DESENEX/MITRAZOL/ZEASORB 1 APPLIC TOPICAL ×2 (09:03→21:39)
[2024-04-08] MEDS: GLUCOPHAGE 1000 MG PO ×2 (09:03→17:09)
[2024-04-08] MEDS: COREG 3.125 MG PO ×2 (09:04→23:50)
[2024-04-08] MEDS: ROCEPHIN 2000 MG IV ×2 (10:55→23:50)
[2024-04-08] MEDS: STERILE WATER FOR INJECTION 20 ML IV ×2 (10:56→23:51)
[2024-04-08 11:00] VITALS: BP 156/65; PULSE 81; O2SAT 95
[2024-04-08 11:41] LABS: Glucose - Point of Care 184 mg/dl (70-99)
--- NOTE | 2024-04-08 12:04 | W.PN.HOSP.TC ---
Today's Communication/Plan
-
Monitor vital signs see plan
Patient family now decided to rather go home
schedule planning manager aware
Continue to monitor volume status
Check home O2 eval
Continue with antibiotics
Assessment / Plan
Assessment / Plan
Physical exam:
General: Well Developed and Well Nourished. Obese
HEENT: Normocephalic and Atraumatic
Respiratory: Negative Wheezes or Rales
Cardiac: Regular Rhythm and S1/S2
GI: Soft abdomen, non tender.
Genito-urinary: No Costovertebral Tender
Neuro: AAO to self and surroundings, he followed commands.
Psych: Calm
# Severe sepsis/ septic shock with enterococcal bacteremia
Positive blood culture from admission with Enterococcus, repeat blood culture 04/01 NGTD
COVID, flu negative
ID following
Echocardiogram without overt signs of endocarditis but with no other source determine, cardiology consulted for BRANDON 04/02/24 neg for endocarditis
other infectious workup UA, CXR, were negative
continue ampicillin, ceftriaxone x 6 weeks through 05/10/24. Right PICC placed
CT abdomen/pelvis without acute abnormality to explain for his bacteremia
GI consulted for colonoscopy, not adequate prep 04/04, colonoscopy 04/05 with hemorrhoids, diverticulosis.
#Lactic acidosis on admission
Resolved
# acute on chronic HFrEF
Last echo showed LVEF 45-50%, mild cLVH, mild anteroseptal hypokinesis, s/p TAVR with peak/mean gradients 35/20 mmHg, mild TR, estimated PAP 41 mmHg
Acute hypoxic respiratory failure with need for O2 3 liters and feeling distressed.
Continue with I-S
check CXR 04/03 with mild pulmonary edema; pro-bnp high.
Given Lasix on 04/06 and 04/07
Off O2 now after Lasix.
Elevated troponin likely nonischemic myocardial injury
Denies any chest pain
Does have history of CAD with stent
trop peaked at .281
cw ASA
Thrombocytopenia
Monitored, no bleeding.
Suspect TME secondary to sepsis
now improving, monitor
# MARCOS with Renal insufficiency
Resolved.
- Resume chlorthalidone
losartan restarted
# Essential HTN
resumed Losartan, resumed amlodipine.
HLD
- cont GRAPHIC ILLUSTRATOR baby ASA and Statin
HX valvular heart dz
s/p TAVR
monitor
Relative hypotension due to sepsis on admission
essential HTN;
Restarted Coreg, losartan,amlodipine and chlorthalidone
NIDDM
- Resumed Metformin
- added ISS low
A1c 6.8
DVT Px: LMWH
Code: Full code
PT/OT recommendation SNF; patient and family now deciding to rather take him home. Home O2 eval. schedule planning manager notified
Total time spent to see the patient on the floor, examine the patient, review data and lab results, discuss treatment plan with patient, nursing staff around 51 minutes
Anticipated Discharge: Within 24 hours
Subjective/Interval History
-
Date of Service: April 08, 2024
Denies pain
Objective Data
-
Labs:
Laboratory Results
04/08/24
06:47
WBC 12.0 H
Hgb 9.8 L
Hct 30.0 L
Plt Count 330
Sodium 139
Potassium 4.0
Chloride 101
Carbon Dioxide 28
BUN 18
Creatinine 1.1
Glucose 118 H
Calcium 9.3
Vital Signs:
Vital Signs
Temp Pulse Resp BP Pulse Ox
99.1 F 77 18 167/73 95
04/08/24 07:00 04/08/24 07:00 04/08/24 07:00 04/08/24 09:02 04/08/24 07:00
I&O
04/07/24 04/08/24 04/09/24
06:59 06:59 06:59
Intake Total 1852 / 1852 181 / 1817
Output Total 3450 / 3450 1250 / 1250
Balance -1598 / -1598 568 / 568
--- NOTE | 2024-04-08 12:44 | RESPNOTE ---
Home O2 assessment ordered for patient. Patient already seen by PT and OT this morning. Patient completed therapy and exercise pulse ox. on RA with no desaturations. did not qualify for O2.
[2024-04-08 13:39] LABS: Glucose - Point of Care 173 mg/dl (70-99)
[2024-04-08] MEDS: NOVOLOG FLEXPEN-LOW RESISTANCE 1 UNITS SC (13:56)
[2024-04-08 15:00] VITALS: BP 140/59
[2024-04-08 16:47] LABS: Glucose - Point of Care 219 mg/dl (70-99)
[2024-04-08] MEDS: LIPITOR 40 MG PO (17:08)
[2024-04-08] MEDS: Hygroton 25 MG PO (17:09)
[2024-04-08] MEDS: LOVENOX 40 MG SC (17:09)
--- NOTE | 2024-04-08 17:10 | CM ---
Received notification from attending that patient is going home now and needs IV abx. Paper Script should be on chart. Will need to be faxed to home infusion company. Attending stated that patient will need to go home tomorrow. Will need to call
infusion company early. This patient was initially going to SNF but changed his mind.
Plan: Case management will continue to follow and assist with discharge planning. Home with IV abx.
[2024-04-08] MEDS: NOVOLOG FLEXPEN-LOW RESISTANCE 2 UNITS SC (18:00)
[2024-04-08 21:52] LABS: Glucose - Point of Care 155 mg/dl (70-99)
[2024-04-08 23:00] VITALS: BP 145/63
[2024-04-08] MEDS: ROBITUSSIN 200 MG PO (23:50)
[2024-04-09] MEDS: AMPICILLIN 108 MG IV ×6 (00:33→20:38)
[2024-04-09 06:00] VITALS: BMI 33.0
[2024-04-09 06:35] LABS: % Basophils 0.4 % (0-2); % Eosinophils 2.8 % (0-6); % Immature Granulocytes 0.6 % (0-0.5); % Monocytes 8.8 % (1.7-9.3); % Neutrophils 78.4 % (42.2-75.2); Absolute Basophils 0.1 10^3/uL (0-0.2); Absolute Eosinophils 0.3 10^3/uL (0-0.7); Absolute Immature Granulocytes 0.1 10^3/uL (0-0.05); Hematocrit 28.3 % (39.0-52.0); Hemoglobin 9.2 g/dL (13.0-18.0); Mean Corp Hgb Conc. 32.5 g/dL (33.0-37.0); Mean Corpuscular Hgb 30.7 pg (27.0-31.0); Mean Corpuscular Volume 94.3 fL (80.0-94.0); Mean Platelet Volume 9.9 fL (7.4-10.4); Nucleated Red Blood Cells % 0 % (-); Platelet Count 325 10^3/uL (130-400); Red Cell Dist. Width 12.9 % (11.5-14.5); White Blood Cell Count 11.4 10^3/uL (4.8-10.8)
[2024-04-09 07:00] VITALS: BP 137/60
[2024-04-09 07:04] LABS: Blood Urea Nitrogen 19 mg/dl (9-20); Calcium 9.4 mg/dl (8.4-10.2); Carbon Dioxide 27 mmol/L (22-30); Chloride 103 mmol/L (98-107); Estimated Creatinine Clearance 62 ml/min; Glucose 117 mg/dl (70-99); Potassium 3.7 mmol/L (3.5-5.1); Sodium 140 mmol/L (135-145); eGFR > 60.00
[2024-04-09] MEDS: GLUCOPHAGE 1000 MG PO ×2 (07:37→17:02)
[2024-04-09] MEDS: DESENEX/MITRAZOL/ZEASORB 1 APPLIC TOPICAL ×2 (07:38→20:41)
[2024-04-09] MEDS: COREG 3.125 MG PO ×2 (07:38→20:32)
[2024-04-09] MEDS: NORVASC 5 MG PO (07:38)
[2024-04-09] MEDS: COZAAR 100 MG PO (07:38)
[2024-04-09] MEDS: ASPIR LOW (ENTERIC COATED) 81 MG PO (07:38)
[2024-04-09 07:51] LABS: Glucose - Point of Care 136 mg/dl (70-99)
[2024-04-09] MEDS: NOVOLOG FLEXPEN-LOW RESISTANCE SC ×2 (08:00→12:51)
[2024-04-09] MEDS: ROBITUSSIN 200 MG PO ×2 (10:19→20:38)
[2024-04-09] MEDS: STERILE WATER FOR INJECTION 20 ML IV ×2 (10:19→23:00)
[2024-04-09] MEDS: ROCEPHIN 2000 MG IV ×2 (10:19→22:59)
--- NOTE | 2024-04-09 10:47 | W.PN.HOSP.TC ---
Today's Communication/Plan
-
Monitor vitals
See plan
Set up home antibiotics, immigration case worker aware
Spouse updated over the phone
Continue antibiotics
PT/OT
ID made aware that patient is now going home and not SNF
Assessment / Plan
Assessment / Plan
Physical exam:
General: Well Developed and Well Nourished. Obese
HEENT: Normocephalic and Atraumatic
Respiratory: Negative Wheezes or Rales
Cardiac: Regular Rhythm and S1/S2
GI: Soft abdomen, non tender.
Genito-urinary: No Costovertebral Tender
Neuro: AAO to self and surroundings, he followed commands.
Psych: Calm
# Severe sepsis/ septic shock with enterococcal bacteremia
Positive blood culture from admission with Enterococcus, repeat blood culture 04/01 NGTD
COVID, flu negative
ID following
Echocardiogram without overt signs of endocarditis but with no other source determine, cardiology consulted for BRANDON 04/02/24 neg for endocarditis
other infectious workup UA, CXR, were negative
continue ampicillin, ceftriaxone x 6 weeks through 05/10/24. Right PICC placed
CT abdomen/pelvis without acute abnormality to explain for his bacteremia
GI consulted for colonoscopy, not adequate prep 04/04, colonoscopy 04/05 with hemorrhoids, diverticulosis.
#Lactic acidosis on admission
Resolved
# acute on chronic HFrEF
Last echo showed LVEF 45-50%, mild cLVH, mild anteroseptal hypokinesis, s/p TAVR with peak/mean gradients 35/20 mmHg, mild TR, estimated PAP 41 mmHg
Acute hypoxic respiratory insufficiency, was on 3 L. Now on room air
Continue with I-S
check CXR 04/03 with mild pulmonary edema; pro-bnp high.
Given Lasix on 04/06 and 04/07
Off O2 now after Lasix.
Elevated troponin likely nonischemic myocardial injury
Denies any chest pain
Does have history of CAD with stent
trop peaked at .281
cw ASA
Thrombocytopenia
Monitored, no bleeding.
Suspect TME secondary to sepsis
now improving, monitor
# MARCOS with Renal insufficiency
Resolved.
- Resume chlorthalidone
losartan restarted
# Essential HTN
resumed Losartan, resumed amlodipine.
HLD
- cont HYDRO PLANT OPERATOR baby ASA and Statin
HX valvular heart dz
s/p TAVR
monitor
Relative hypotension due to sepsis on admission
essential HTN;
Restarted Coreg, losartan,amlodipine and chlorthalidone
NIDDM
- Resumed Metformin
- added ISS low
A1c 6.8
DVT Px: LMWH
Code: Full code
PT/OT recommendation SNF; patient and family now deciding to rather take him home. Does not prefer for home O2. clinical applications manager notified. Need home antibiotics set up. ID also made aware that they need to follow-up patient since now going home
rather than SNF
Total time spent to see the patient on the floor, examine the patient, review data and lab results, discuss treatment plan with patient, nursing staff around 52 minutes
Anticipated Discharge: Within 24 hours
Subjective/Interval History
-
Date of Service: April 09, 2024
denies pain
Objective Data
-
Labs:
Laboratory Results
04/09/24
06:20
WBC 11.4 H
Hgb 9.2 L
Hct 28.3 L
Plt Count 325
Sodium 140
Potassium 3.7
Chloride 103
Carbon Dioxide 27
BUN 19
Creatinine 1.1
Glucose 117 H
Calcium 9.4
Vital Signs:
Vital Signs
Temp Pulse Resp BP Pulse Ox
97.7 F 78 20 137/60 93
04/09/24 07:00 04/09/24 07:38 04/09/24 07:00 04/09/24 07:38 04/09/24 07:00
I&O
04/08/24 04/09/24 04/10/24
06:59 06:59 06:59
Intake Total 1818 / 1818 804 / 804
Output Total 1250 / 1250 600 / 600
Balance 568 / 568 204 / 204
--- NOTE | 2024-04-09 11:16 | CM ---
Addendum entered by Rebeca Huffman RN 04/09/24 16:04:
Destiny Figueroa spoke with pt ,dgt and . Plan is to dc tomorrow by 12:00. [facility] to deliver meds and supplies . [facility] to perform teaching and PT OT. MD notified of plan. IV script updated to reflect Ampicillin via IV pump over 24
hours. Updated fax to [facility] and [facility] aware.
Addendum entered by Rebeca Huffman RN 04/09/24 15:08:
Pt s called Heather and said they feel he has to go to [facility] [place] for every 4 hour IV antibiotics.
Contacted Destiny Figueroa who said moura for meds would be $20.00/week. Also meds would be given via pump and changed every 24 hour.
Destiny is speaking with pt and /daughter for final decision.
PLAN Home with [facility] and [facility] VS [place] [facility]
Original Note:
Spoke with Heather [phone] . She was upset . She said her daughters will have pt live at their house and given him 2 IV antibiotics for 6 weeks.Address given [address] [facility] [address].
She requested PT OT She said [facility] and [facility] could be used.
Obtained copy of IV antibiotics.
Spoke with Destiny Figueroa . Clinical with IV antibiotics script faxed to [facility].
Spoke with Malgorzata JACKMAN who will need to provide IV antibiotics instruction and PT OT at daughter home in [facility] and faxed clinical with script to [facility] .
Will need moura of antibiotics given to pt / and teaching via [facility] and [facility].
PLAN Home to daughter with [facility] and [facility] fax [phone]
--- NOTE | 2024-04-09 11:31 | PN.CDI ---
CDI
- -
CDI:
Physician Documentation Request
Admit Date: 03/29/24 22:31
Dear Doctor Ross,
Patient admitted with severe sepsis.
04/07 and 04/08 progress notes include a diagnosis of 'Acute hypoxic respiratory failure with need for O2 3 liters and feeling distressed.'
Recognized standard criteria for respiratory failure includes:
(Source: [employer] Hospitalist Aug 2013)
ABGs (1 or more)
�PO2 <60 or RA SpO2 <91%
�PcO2 >50 and pH <7.35
�pO2 decrease or pcO2 increase by 10 mmHg from baseline if known Symptoms:
�Tachypnea, SOB, dyspnea
�Pallor or cyanosis
�Anxiety or restlessness
�Use of accessory muscles
�Retractions (grunting in newborns)
�Unable to speak in complete sentences
Supplemental O2 requirement of 40% (5LPM) or more Intubation is not required
Based on the above information and the recognized standard for respiratory failure could you please verify this diagnoses is still accurate and reflective of the patient�s condition to ensure quality of the medical record.
Please clarify in the Progress Notes:
�Respiratory failure is/was present and is a clinical diagnosis based on (please include this additional support in the medical record)
�After study respiratory failure has been ruled out
�Other
Use of terms such as suspected, likely, concern for, or probable (associated with a specific diagnosis that is being evaluated, monitored, or treated as if it exists) are acceptable and can be coded in the inpatient setting, when documented at the
time of discharge.
Thank you,
Melvi Francis RN, BSN
CDI Specialist
tiger text
Please use your independent medical judgment in providing your response.
--- NOTE | 2024-04-09 11:35 | PN.CDI ---
CDI
- -
CDI:
Physician Documentation Request
Admit Date: 03/29/24 22:31
Dear Doctor Ross,
04/07 -04/09 hospitalist progress notes include a diagnosis of acute on chronic HFrEF.
Per H&P patient does not have a listed history of CHF, nor does the patient appear to take diuretics on the outpatient basis.
Please clarify which of the following accurately represents the acuity of the heart failure:
____ Acute
Acute on Chronic
____ Other
Use of terms such as suspected, likely, concern for, or probable (associated with a specific diagnosis that is being evaluated, monitored, or treated as if it exists) are acceptable and can be coded in the inpatient setting, when documented at the
time of discharge.
Thank you,
Melvi Francis RN, BSN
CDI Specialist
tiger text
Please use your independent medical judgment in providing your response.
[2024-04-09 12:46] LABS: Glucose - Point of Care 126 mg/dl (70-99)
[2024-04-09 15:00] VITALS: BP 160/62
[2024-04-09 16:50] LABS: Glucose - Point of Care 190 mg/dl (70-99)
[2024-04-09] MEDS: LIPITOR 40 MG PO (17:03)
[2024-04-09] MEDS: Hygroton 25 MG PO (17:03)
[2024-04-09] MEDS: NOVOLOG FLEXPEN-LOW RESISTANCE 1 UNITS SC (17:03)
[2024-04-09] MEDS: LOVENOX 40 MG SC (17:03)
[2024-04-09 22:30] LABS: Glucose - Point of Care 107 mg/dl (70-99)
[2024-04-09 23:43] VITALS: BP 142/78
[2024-04-10] MEDS: AMPICILLIN 108 MG IV ×4 (00:25→11:32)
[2024-04-10] MEDS: ROBITUSSIN 200 MG PO (04:32)
[2024-04-10 04:35] LABS: % Basophils 0.4 % (0-2); % Eosinophils 3.6 % (0-6); % Immature Granulocytes 0.4 % (0-0.5); % Lymphocytes 10.3 % (20.5-51.1); % Monocytes 9.5 % (1.7-9.3); % Neutrophils 75.8 % (42.2-75.2); Absolute Eosinophils 0.4 10^3/uL (0-0.7); Absolute Immature Granulocytes 0.1 10^3/uL (0-0.05); Absolute Lymphocytes 1.2 10^3/uL (1.2-3.4); Absolute Monocytes 1.1 10^3/uL (0.1-0.6); Absolute Neutrophils 8.4 10^3/uL (1.4-6.5); Hematocrit 29.4 % (39.0-52.0); Hemoglobin 9.4 g/dL (13.0-18.0); Mean Corpuscular Hgb 30.4 pg (27.0-31.0); Mean Corpuscular Volume 95.1 fL (80.0-94.0); Mean Platelet Volume 9.7 fL (7.4-10.4); Nucleated Red Blood Cells % 0 % (-); Platelet Count 339 10^3/uL (130-400); Red Blood Cell Count 3.09 10^6/uL (4.70-6.10); White Blood Cell Count 11.1 10^3/uL (4.8-10.8)
[2024-04-10 05:10] LABS: Blood Urea Nitrogen 21 mg/dl (9-20); Calcium 9.3 mg/dl (8.4-10.2); Carbon Dioxide 28 mmol/L (22-30); Chloride 104 mmol/L (98-107); Estimated Creatinine Clearance 68 ml/min; Glucose 114 mg/dl (70-99); Potassium 4.1 mmol/L (3.5-5.1); Sodium 140 mmol/L (135-145); eGFR > 60.00
[2024-04-10 08:02] VITALS: BP 137/76
[2024-04-10 08:27] LABS: Glucose - Point of Care 128 mg/dl (70-99)
[2024-04-10] MEDS: COZAAR 100 MG PO (09:05)
[2024-04-10] MEDS: ASPIR LOW (ENTERIC COATED) 81 MG PO (09:05)
[2024-04-10] MEDS: NOVOLOG FLEXPEN-LOW RESISTANCE SC (09:05)
[2024-04-10] MEDS: GLUCOPHAGE 1000 MG PO (09:05)
[2024-04-10] MEDS: COREG 3.125 MG PO (09:06)
[2024-04-10] MEDS: DESENEX/MITRAZOL/ZEASORB 1 APPLIC TOPICAL (09:09)
[2024-04-10] MEDS: NORVASC 5 MG PO (09:14)
--- NOTE | 2024-04-10 10:01 | CM ---
Addendum entered by MIMI Barnard 04/10/24 11:22:
Spoke with Destiny from [facility] who stated that she has everything set up for patient and requested an early discharge. Attending updated Met with patient and his who was at bedside (had just come in), who confirmed that she can take patient
home (to her daughter's house) and she will drive.
IMM reviewed and signed by patient.
Original Note:
Placed a call to patient's as 3W unitizer stated that she has no questions she confirmed that she spoke with Destiny from [facility] [place] and understands the process.
Plan: Case management will continue to follow and assist with discharge planning. Home with IV ABX.
--- NOTE | 2024-04-10 10:06 | W.PN.HOSP.TC ---
Today's Communication/Plan
-
Monitor vital signs and see plan
Discharge today with home antibiotics; showcase trimmer aware
Continue antibiotics
Time of discharge 39 minutes
Assessment / Plan
Assessment / Plan
Physical exam:
General: Well Developed and Well Nourished. Obese
HEENT: Normocephalic and Atraumatic
Respiratory: Negative Wheezes or Rales
Cardiac: Regular Rhythm and S1/S2
GI: Soft abdomen, non tender.
Genito-urinary: No Costovertebral Tender
Neuro: AAO to self and surroundings, he followed commands.
Psych: Calm
# Severe sepsis/ septic shock with enterococcal bacteremia
Positive blood culture from admission with Enterococcus, repeat blood culture 04/01 NGTD
COVID, flu negative
ID following
Echocardiogram without overt signs of endocarditis but with no other source determine, cardiology consulted for BRANDON 04/02/24 neg for endocarditis
other infectious workup UA, CXR, were negative
continue ampicillin, ceftriaxone x 6 weeks through 05/10/24. Right PICC placed
CT abdomen/pelvis without acute abnormality to explain for his bacteremia
GI consulted for colonoscopy, not adequate prep 04/04, colonoscopy 04/05 with hemorrhoids, diverticulosis.
#Lactic acidosis on admission
Resolved
# acute HFrEF
Last echo showed LVEF 45-50%, mild cLVH, mild anteroseptal hypokinesis, s/p TAVR with peak/mean gradients 35/20 mmHg, mild TR, estimated PAP 41 mmHg
Acute hypoxic respiratory insufficiency, was on 3 L. Now on room air
Suspect it was some iatrogenic component
Continue with I-S
check CXR 04/03 with mild pulmonary edema; pro-bnp high.
Given Lasix on 04/06 and 04/07
Off O2 now after Lasix.
no need for lasix outpatient; already on chlorthalidone. lasix if he gets sob or weight gain>3lb. at that time he will stop chlorthalidone
Elevated troponin likely nonischemic myocardial injury
Denies any chest pain
Does have history of CAD with stent
trop peaked at .281
cw ASA
Thrombocytopenia
Monitored, no bleeding.
Suspect TME secondary to sepsis
now improving, monitor
# MARCOS with Renal insufficiency
Resolved.
- Resume chlorthalidone
losartan restarted
# Essential HTN
resumed Losartan, resumed amlodipine.
HLD
- cont BILINGUAL TEACHER baby ASA and Statin
HX valvular heart dz
s/p TAVR
monitor
Relative hypotension due to sepsis on admission
essential HTN;
Restarted Coreg, losartan,amlodipine and chlorthalidone
NIDDM
- Resumed Metformin
- added ISS low
A1c 6.8
DVT Px: LMWH
Code: Full code
PT/OT recommendation SNF; patient and family now deciding to rather take him home. Does not prefer for home O2. manager embalmer funeral director notified. Need home antibiotics set up. ID also made aware that they need to follow-up patient since now going home
rather than SNF
Anticipated Discharge: Today
Subjective/Interval History
-
Date of Service: April 10, 2024
denies pain
Objective Data
-
Labs:
Laboratory Results
04/10/24
04:27
WBC 11.1 H
Hgb 9.4 L
Hct 29.4 L
Plt Count 339
Sodium 140
Potassium 4.1
Chloride 104
Carbon Dioxide 28
BUN 21 H
Creatinine 1.0
Glucose 114 H
Calcium 9.3
Vital Signs:
Vital Signs
Temp Pulse Resp BP Pulse Ox
98.6 F 78 16 137/76 95
04/10/24 08:02 04/10/24 08:02 04/10/24 08:02 04/10/24 08:02 04/10/24 08:02
I&O
04/09/24 04/10/24 04/11/24
06:59 06:59 06:59
Intake Total 804 / 804 1575 / 1575
Output Total 600 / 600 425 / 425
Balance 204 / 204 1150 / 1150
[2024-04-10] MEDS: STERILE WATER FOR INJECTION 20 ML IV (10:12)
[2024-04-10] MEDS: ROCEPHIN 2000 MG IV (10:12)
--- NOTE | 2024-04-10 10:23 | W.DCSUMMARY ---
Discharge Summary
Discharge Data
Date of Admission: 03/29/24
Date of Discharge: 04/10/24
-
Pending Results: No
Hospital Course
84-year-old male with past medical history of essential hypertension, hyperlipidemia, valvular heart disease, hypertension, ext-pclfaqz-noehxtyiy diabetes mellitus, renal insufficiency came to the hospital with severe sepsis secondary to
enterococcal bacteremia. Patient blood culture from admission continue to grow Enterococcus however latest blood culture prior to discharge were negative. Patient was seen by infectious disease throughout hospitalization and was started on
antibiotics. Given his history of valvular disease, cardiology was consulted for BRANDON. Patient underwent BRANDON on 04/02/2024 which was negative for endocarditis. Other infectious workup including UA, chest x-ray were also negative. On this
hospitalization patient also had elevated troponin which was likely thought was secondary to nonischemic myocardial injury. Cardiology instructed patient to follow-up with them outpatient. Echocardiogram was done which showed EF of 50 to 55% with
mild anteroseptal hypokinesis. On this hospitalization patient also required Lasix at times and had mild component of acute congestive heart failure however prior to discharge his volume status was stable on chlorthalidone. He did had some
iatrogenic component of fluid overload given that he required fluids on admission. Patient was evaluated by physical therapy who recommended SNF however patient and family chose to rather go home. Patient was then set up for home antibiotics to
complete the course for his bacteremia and was instructed to follow-up with infectious disease closely outpatient. Once patient symptoms continue to improve, he was then discharged home with instructions to follow-up with all his physicians
outpatient.
Discharge Plan
-
Patient Disposition: Home with Home Care
Discharge Diagnosis/Procedures: Severe sepsis 2/2 enterococcal bacteremia
Acute on chronic congestive heart failure with reduced EF
Toxic metabolic encephalopathy secondary to sepsis
Renal insufficiency
Diet: Regular
Activity: As tolerated
Driving Restrictions: Not until seen by your Dr
Bathing Restrictions: None
Blood Work: weekly cbc with diff and cmp while on IV antibiotics from PCP or Infectious disease
Activity Restrictions/Additional Instructions:
continue ampicillin, ceftriaxone x 6 weeks through 05/10/24
Continue with chlorthalidone. If get shortness of breath or weight increases greater than 3 pounds then contact your primary care provider or cardiology for possible Lasix
Referrals:
Homar Mcneill MD [Family Provider] -
Raulito Thomas MD [Active] -
Harper Waters PA-C [Specified Professional Personl] - 05/09/24 2:00 pm (You have a cardiology follow up appointment at the [place] office with Dr. Mills's physician assistant store manager trainee, Harper. Please call with questions. )
Sondra Samano MD [Active] - in one week
Prescriptions:
New
guaifenesin [Siltussin SA] 100 mg/5 mL Liquid
200 mg PO Q4HPRN PRN (Reason: cough) Qty: 473 0RF
acetaminophen 325 mg Tablet
650 mg PO Q4HPRN PRN (Reason: MULLER/mild pain/temp > 100.4 F) Qty: 0 0RF
miconazole nitrate [Miconazorb AF] 2 % Powder
1 applic topical BID Qty: 85 0RF
Ampicillin 2000 MG
0.9% Sodium Chloride 100 ml [Nss] 100 ML
As Directed IV DIRECTED
12G over 24hr via pump
Ordered By: Portillo Hawkins MD
Last Taken: 04/10/24 11:32 108 mls
ceftriaxone 2 gram Recon Soln
2,000 mg IV Q12H Qty: 0 0RF
Continued
aspirin 81 MG tablet,delayed release (DR/EC)
81 mg PO DAILY
atorvastatin 40 MG tablet
40 mg PO QPM
chlorthalidone 25 MG tablet
25 mg PO QPM
losartan [Cozaar] 100 MG tablet
100 mg PO DAILY
vitamin K2 100 MCG capsule
100 mcg PO DAILY
metformin 500 MG tablet extended release 24 hr
1,000 mg PO BID@0800,1700 Qty: 0 0RF
multivitamin Tablet
1 tab PO DAILY
vitamin A 2,400 mcg Capsule
2,400 mcg PO DAILY
cyanocobalamin (vitamin B-12) 1,000 mcg Tablet
1,000 mcg PO DAILY
amlodipine 5 mg tablet
5 mg PO DAILY
carvedilol 3.125 mg tablet
3.125 mg PO BID
zinc sulfate 50 mg zinc (220 mg) Tablet
50 mg PO DAILY
cholecalciferol (vitamin D3) 50 mcg (2,000 unit) Tablet
50 mcg PO DAILY
Discharge Orders:
Discharge Patient (As Directed); Ordered 04/10/24
Ordered By: Portillo Hawkins
Discharge Date and Time
Discharge Date/Time: 04/10/24 14:26
Print Language: LAO
[2024-04-10 11:22] VITALS: BP 115/74
[2024-04-10 11:50] VITALS: BP 138/61; PULSE 80; O2SAT 94
[2024-04-10 12:02] VITALS: BP 142/59
== END 2024-04-10 14:26 | disposition home health service (06) | DRG 871 ==
LOC: 3 WEST ACU 22:31
PROVIDERS: Internal Medicine; Internal Medicine Gastroenterology; ADMITTING PHYSICIAN Internal Medicine; ATTENDING PHYSICIAN Internal Medicine; CONSULT PHYSICIAN Nuclear Medicine Nuclear Cardiology; CONSULT PHYSICIAN Specialist; CONSULT PHYSICIAN Student in an Organized Health Care Education/Training Program; EMERGENCY PHYSICIAN Emergency Medicine; FAMILY PHYSICIAN Family Medicine
PROC: B24BZZ4 Ultrasonography of Heart with Aorta, Transesophageal (ICD-10-PCS; 2024-04-02)
PROC: 02HV33Z Insertion of Infusion Device into Superior Vena Cava, Percutaneous Approach (ICD-10-PCS; 2024-04-04)
PROC: 0DBN8ZZ Excision of Sigmoid Colon, Via Natural or Artificial Opening Endoscopic (ICD-10-PCS; 2024-04-05)
PROC: 0DBK8ZZ Excision of Ascending Colon, Via Natural or Artificial Opening Endoscopic (ICD-10-PCS; 2024-04-05)
PROC: 0DBH8ZZ Excision of Cecum, Via Natural or Artificial Opening Endoscopic (ICD-10-PCS; 2024-04-05)
PROC: 0DJ08ZZ Inspection of Upper Intestinal Tract, Via Natural or Artificial Opening Endoscopic (ICD-10-PCS; 2024-04-05)
DX: A41.81 Sepsis due to Enterococcus (principal); G93.41 Metabolic encephalopathy; R65.21 Severe sepsis with septic shock; I50.21 Acute systolic (congestive) heart failure; N17.9 Acute kidney failure, unspecified; I5A Non-ischemic myocardial injury (non-traumatic); E87.20 Acidosis, unspecified; J98.11 Atelectasis; R09.02 Hypoxemia; R06.89 Other abnormalities of breathing; I11.0 Hypertensive heart disease with heart failure; I25.10 Atherosclerotic heart disease of native coronary artery without angina pectoris; E11.9 Type 2 diabetes mellitus without complications; D69.59 Other secondary thrombocytopenia; I35.0 Nonrheumatic aortic (valve) stenosis; E78.00 Pure hypercholesterolemia, unspecified; Z88.7 Allergy status to serum and vaccine; Z95.2 Presence of prosthetic heart valve; I25.2 Old myocardial infarction; Z11.52 Encounter for screening for COVID-19
CPT/HCPCS: 88305; 70355; 71045; 71046; 74177; 80048; 80053; 81003; 81015; 82607; 82728; 82746; 82962; 83036; 83540; 83550; 83605; 83880; 84484; 85025; 85027; 85652; 86140; 87040; 87077; 87186; 87205; 87502; 87811; 87899; 93005; 93306; 93312; 93320; 93325; 96360; 97116; 97162; 97167; 97530; 97535; 99291; Q9950; Q9967

== ENCOUNTER 2024-04-13 13:43 | Emergency (ER) | payer MEDICARE, BC, SELFPAY ==
[2024-04-13 13:57] VITALS: BP 156/70
--- NOTE | 2024-04-13 15:36 | ED.GENMED ---
History of Present Illness
General
Chief Complaint: Catheter/Tube Problem
Time Seen by Provider: 04/13/24 15:36
History of Present Illness
History of Present Illness:
HPI: The patient was admitted here up until 3 days ago with Enterococcus bacteremia discharged with a PICC. He comes in today due to concerns for bleeding around the PICC site. This happened again this morning even after the nurse redressed the
wound last evening. The PICC itself is functional.
EXAM:
GENERAL: The patient appears generally weak and debilitated eyes examined him on wheelchair
HEENT: Moist oral mucosa
NEUROLOGIC: Excellent strength all extremities, no coordination deficits
PSYCHIATRIC: Appropriate mental status, normal insight and judgement
EXTREMITIES: Nontender, no edema, there is a PICC present in the right upper extremity with small amount of blood noted on the dressing at the insertion site
SKIN: No rash, no lesions
TIME OF INITIAL ENCOUNTER: 3:40 PM
NUMBER AND COMPLEXITY OF PROBLEMS ADDRESSED AT THE ENCOUNTER
� Chronic conditions affecting care: Bacteremia 2023, high blood pressure, hyperlipidemia, valve disease, NIDDM
� Acute Exacerbation and/or Progression of Chronic Illness: This is an acute problem
� Differential Diagnosis includes: Bleeding from recent procedure, coagulopathy
AMOUNT AND/OR COMPLEXITY OF DATA TO BE REVIEWED AND ANALYZED
� I performed an independent evaluation of and my interpretation is:
EKG:
CT:
X-rays:
Laboratory Studies:
Other:
� Review of other/old records: Hemoglobin from day of discharge was 9.4
� Clinical information was obtained by an independent historian: I spoke to family at bedside
� Prescriptions/Medications Considered but not given:
� Further testing considered but not performed: Consider checking blood work however the amount of bleeding appears very minimal
RISK OF COMPLICATIONS AND/OR MORBIDITY OR MORTALITY OF PATIENT MANAGEMENT
� Social determinants of health affecting care: Lives at home
� Discussion with other providers: IV team
� Escalation of care including admission/observation vs risk of discharge considered: I have asked nurse to contact IV team to evaluate the site. Before 5 PM, IV team did come down redress the site and gave the patient family
education.
Past History
Past History
ED Past Medical History: CAD, HTN, NIDDM and Other (Aortic stenosis)
ED Past Surgical History: Orthopedic (Arm surgery)
Social History
Tobacco: Non-smoker
Alcohol: None
Drug: None
Personal:
Living: with family
Employment: Retired
Family History
Family History: Diabetes
Phy Exam
Physical Exam
Physical Exam:
See HPI
Course
Vital Signs
Initial and Last Documented VS:
Initial Vital Signs
Temp Pulse Resp BP Pulse Ox
99.2 F 80 16 156/70 94
04/13/24 13:57 04/13/24 13:57 04/13/24 13:57 04/13/24 13:57 04/13/24 13:57
Last Documented Vital Signs
Temp Pulse Resp BP Pulse Ox
99.2 F 80 16 156/70 94
04/13/24 13:57 04/13/24 13:57 04/13/24 13:57 04/13/24 13:57 04/13/24 13:57
*Critical Care Note
Total Time (30-74mins, 75-104mins- exclusive of procedures): Not Applicable
ED Attending Note
-
Portions of this chart may have been created with voice recognition software.� Occasional wrong word or��sound alike� substitutions may have occurred due to the inherent limitations of voice recognition software.
Discharge Plan
Departure
Patient Disposition: Home (Routine Discharge)
Date of Disposition: 04/13/24
Time of Disposition: 17:23
Patient with high blood pressure during this ER visit?: Yes
Discharge Problem:
Bleeding from peripherally inserted central catheter (PICC)
Prescriptions:
No Action
aspirin 81 MG tablet,delayed release (DR/EC)
81 mg PO DAILY
atorvastatin 40 MG tablet
40 mg PO QPM
chlorthalidone 25 MG tablet
25 mg PO QPM
losartan [Cozaar] 100 MG tablet
100 mg PO DAILY
vitamin K2 100 MCG capsule
100 mcg PO DAILY
metformin 500 MG tablet extended release 24 hr
1,000 mg PO BID@0800,1700 Qty: 0 0RF
multivitamin Tablet
1 tab PO DAILY
vitamin A 2,400 mcg Capsule
2,400 mcg PO DAILY
cyanocobalamin (vitamin B-12) 1,000 mcg Tablet
1,000 mcg PO DAILY
amlodipine 5 mg tablet
5 mg PO DAILY
carvedilol 3.125 mg tablet
3.125 mg PO BID
zinc sulfate 50 mg zinc (220 mg) Tablet
50 mg PO DAILY
cholecalciferol (vitamin D3) 50 mcg (2,000 unit) Tablet
50 mcg PO DAILY
guaifenesin [Siltussin SA] 100 mg/5 mL Liquid
200 mg PO Q4HPRN PRN (Reason: cough) Qty: 473 0RF
acetaminophen 325 mg Tablet
650 mg PO Q4HPRN PRN (Reason: MULLER/mild pain/temp > 100.4 F) Qty: 0 0RF
miconazole nitrate [Miconazorb AF] 2 % Powder
1 applic topical BID Qty: 85 0RF
Ampicillin 2000 MG
0.9% Sodium Chloride 100 ml [Nss] 100 ML
As Directed IV DIRECTED
12G over 24hr via pump
Ordered By: Portillo Hawkins MD
Last Taken: Unknown
ceftriaxone 2 gram Recon Soln
2,000 mg IV Q12H Qty: 0 0RF
Referrals:
Homar Mcneill MD [Family Provider] -
Interventions
Interventions:
*Risk Screen - Suicide Last Done: 04/13/24 14:05
*General Assessment Last Done: 04/13/24 14:05
*Neglect/Abuse Screening Last Done: 04/13/24 14:05
ED- Fall Risk Assessment Last Done: 04/13/24 14:05
Discharge Date and Time
Print Language: SPANISH
--- NOTE | 2024-04-13 18:38 | PTCARENOTE ---
PT WITH R PICC FOR HOME MEDICATION. FAMILY BROUGHT PT TO D/T CONCERN OF SMALL AMOUNT OF BLOOD UNDER DRESSING. THIS NURSE NOTED SCANT AMOUNT OF DRIED BLOOD UNDER PICC DRESSING, NO ACTIVE BLEEDING. DRESSING WAS DRY AND INTACT. DRESSING CHANGED
WITHOUT DIFFICULTY. FAMILY AT BEDSIDE
== END 2024-04-13 17:40 | disposition home or self-care (01) ==
LOC: EMR 13:43
PROVIDERS: EMERGENCY PHYSICIAN Emergency Medicine; FAMILY PHYSICIAN Family Medicine
DX: T82.838A Hemorrhage due to vascular prosthetic devices, implants and grafts, initial encounter (principal); X58.XXXA Exposure to other specified factors, initial encounter; I10 Essential (primary) hypertension; I25.10 Atherosclerotic heart disease of native coronary artery without angina pectoris; E11.9 Type 2 diabetes mellitus without complications; I35.0 Nonrheumatic aortic (valve) stenosis; Z83.3 Family history of diabetes mellitus
CPT/HCPCS: 99282

== ENCOUNTER → 2025-04-16 11:10 | Outpatient (REF) | payer MEDICARE, BC, SELFPAY | LOC: RCS 11:10 | PROVIDERS: ATTENDING PHYSICIAN Physician Assistant Medical; FAMILY PHYSICIAN Family Medicine | DX: Z95.2 Presence of prosthetic heart valve (principal); I25.10 Atherosclerotic heart disease of native coronary artery without angina pectoris | CPT/HCPCS: 93306 ==

== ENCOUNTER → 2025-07-01 08:55 | Outpatient (REF) | payer MEDICARE, BC, SELFPAY | LOC: RAD 08:55 | PROVIDERS: ATTENDING PHYSICIAN Family Medicine | DX: M25.561 Pain in right knee (principal); Z68.39 Body mass index [BMI] 39.0-39.9, adult | CPT/HCPCS: 73502; 73564 ==

== ENCOUNTER 2025-09-22 09:52 | Inpatient (IN) | payer MEDICARE, BC, SELFPAY ==
--- NOTE | 2025-08-29 10:07 | CM ---
Demographics: confirmed
Living situation: lives with
Support Person Post Operatively:
History of
VN: history of home IV antibiotics, not currently on service
SNF: no
Outpatient: [facility], patient encouraged to make outpatient PT appointment for 09/24
Has patient purchased required equipment: patient has walker, patient encouraged to get hip kit
PCP: [facility]
Pharmacy: [facility]
Post Operative Discharge Plan: Home with , outpatient PT
[2025-09-03 10:41] VITALS: BMI 36.9
[2025-09-03 11:51] LABS: Hematocrit 32.7 % (39.0-52.0); Hemoglobin 10.8 g/dL (13.0-18.0); Mean Corp Hgb Conc. 33.0 g/dL (33.0-37.0); Mean Corpuscular Volume 92.6 fL (80.0-94.0); Platelet Count 229 10^3/uL (130-400); Red Cell Dist. Width 13.9 % (11.5-14.5)
[2025-09-03 12:14] LABS: Glycohemoglobin (HgbA1c) 6.5 % (4.0-5.9)
[2025-09-03 12:46] LABS: ALT (SGPT) 17 U/L (0-50); AST (SGOT) 17 U/L (17-59); Albumin 4.1 g/dl (3.5-5.0); Alkaline Phosphatase 74 U/L (38-126); Blood Urea Nitrogen 26 mg/dl (9-20); Calcium 9.3 mg/dl (8.4-10.2); Carbon Dioxide 24 mmol/L (22-30); Chloride 108 mmol/L (98-107); Estimated Creatinine Clearance 69 ml/min; Glucose 170 mg/dl (70-99); Potassium 4.4 mmol/L (3.5-5.1); Sodium 139 mmol/L (135-145); Total Protein 7.0 g/dl (6.3-8.2); eGFR > 60.00
[2025-09-03 13:45] LABS: Reticulocyte Count 1.8 % (0.4-2.8)
[2025-09-03 13:58] VITALS: BMI 36.9
[2025-09-03 14:52] LABS: Iron 76 ug/dl (49-181)
[2025-09-03 15:01] LABS: Total Iron Binding Capacity 326 ug/dl (261-462)
[2025-09-03 15:41] LABS: Ferritin 37.4 ng/ml (17.9-464.0)
[2025-09-03 16:13] LABS: Folate > 20.0 ng/ml (2.76-20); Vitamin B12 944 pg/ml (239-931)
--- NOTE | 2025-09-10 15:16 | W.PREADMORTH ---
Ortho Preadmission Testing
-
Patient noted to have MRSA + nasal swab pre-op.
He has been started on nasal Mupirocin prior to surgery.
We will add IV Vanco in addition to IV Ancef for joint prophylaxis.
The patient will be advised to continue Mupirocin 2x daily x2 weeks post-surgery as his incision is healing.
--- NOTE | 2025-09-16 10:02 | SLEEP.APNEA ---
Sleep Apnea Order
-
Patient screened as High Risk for Sleep Apnea on Stop Bang Questionnaire. Patient referred to [facility] for Pre-Study.

Name: NUNU ZHONG
: 1940
Home Phone: Use Reg[employer].PrimaryPhone instead
Cell Phone: [f_Reg Other Phone]
Work Phone:
Address: [address] [place] [address]
City: [place]
State: [place]
Zip: [f_[facility] Zip]
Family Physician: Homar Mcneill
Height 5 ft 10 in
Actual Weight 116.7 kg
Body Mass Index (BMI) 36.9
Ordering Provider: Alma Hill PA-C
--- NOTE | 2025-09-19 11:13 | CM ---
Patient is for surgery on 09/22/25, right hip replacement with Dr. Avalos, patient is for discharge on 09/23/25 and plan is outpatient physical therapy at [facility] for 09/24/25, case packer reached out to patient to
confirm that he was able to make outpatient appointment.
[2025-09-22] VITALS (14 sets, daily range): BP systolic 108–168; BP diastolic 53–125; PULSE 70; O2SAT 96
[2025-09-22 09:52] LABS: Glucose - Point of Care 136 mg/dl (70-99)
[2025-09-22] MEDS: NORMOSOL-R/PLASMALYTE-A 1000 IV ×2 (10:00→20:00)
[2025-09-22] MEDS: VANCOCIN 530 MG IV (10:10)
[2025-09-22] MEDS: TYLENOL 650 MG PO ×4 (10:28→23:20)
[2025-09-22] MEDS: CELEBREX 200 MG PO (10:28)
--- NOTE | 2025-09-22 11:22 | CM ---
phone manager received a call from patient's spouse today, confirming plan for patient, OR today, possible discharge tomorrow and outpatient physical therapy has been scheduled by [facility] for 9am on 09/24/25.
Plan; Home with spouse [facility] for 9am on 09/24/25.
--- NOTE | 2025-09-22 12:17 | W.PN.ORTHO ---
Today's Communication / Plan
-
d/c when stable
Assessment
.
Assessment:
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
HFpEF
LBBB
-TAVR 06/2021.
-tele
-continue asa, BB, statin uninterrupted
-decrease IVF rate
NIDDM-A1c 6.5.
Obesity BMI 36.9
Hx Enterococcal bacteremia
-resume Metformin + SSI and low dose Lantus coverage
-Cefadroxil ppx
Remote esophageal ulcers.
-GI ppx
Lumbar degenerative disc disease with radiculopathy.
Ambulatory dysfunction.
-fall precautions
MRSA+ nasal screen
-IV Vanco cecelia-op
-contiue Mupirocin bid x total 21d
BPH
-Flomax-monitor void
Multifactorial anemia.
-iron and B12 stores stable pre-op
-+ IV ferric gluconate and IM cyanobalamin x 1 dose
-monitor hgb p/o
Plan
.
Surgery / Date: R CANDY Avalos 09/22/25
DVT Prophylaxis: Aspirin
Activity:
Out of bed.
PT/OT
Discharge Plan: Home w/ VN
Vital Signs and Labs
.
Vital Signs and Labs:
Lab Results
09/03/25 10:56
09/03/25 10:56
Temp Pulse Resp BP Pulse Ox
98.2 F 73 16 168/125 94
09/22/25 10:00 09/22/25 10:00 09/22/25 10:00 09/22/25 10:00 09/22/25 10:00
--- NOTE | 2025-09-22 12:50 | W.DS.TRANS ---
DC Summary - Nutritional Services Director
-
Discharge Instructions:
Sleep Apnea Risk High
Discharge Diagnosis/Procedures R hip OA s/p R CANDY w/ Dr Avalos 09/22/25
Diet Diabetic, Carb Controlled
Additional Diets Adequate hydration, minimize opioids, and wear
TEDS to prevent low blood pressure/dizziness.
Activity As tolerated,With Walker
Driving Restrictions Not until seen by your Dr
Bathing Restrictions OK to Shower
Others Tests MRSA + ON NASAL SCREEN-CONTINUE MUPIROCIN 2X/DAY
FOR A TOTAL OF 21 DAYS FROM START
Other Services PT,VN,OT
Wound Care Dressing to be removed 1 week post-surgery.
[place] to be removed at 2 week follow-up with
surgeon's office.
Specialty Instructions Weigh Daily
Instructions:
Stand-Alone Forms: Total Hip/Knee Replacement D/C
Changes to Home Medications: Yes
Discharge Medications:
DC Medications w/original date entered in [employer]
atorvastatin 40 mg tablet 40 mg PO QPM High cholesterol 10/11/17
vitamin K2 100 mcg capsule 100 mcg PO BID Supplement 02/10/21
Held on 09/22/25. Instructions: Resume on 09/30/25.
amlodipine 5 mg tablet 5 mg PO DAILY Blood Pressure 03/29/24
cholecalciferol (vitamin D3) 50 mcg (2,000 unit) tablet 50 mcg PO BID Supplement 03/29/24
cyanocobalamin (vitamin B-12) 1,000 mcg tablet 1,000 mcg PO HS Supplement 03/29/24
multivitamin 1 tab PO BID Supplement 03/29/24
Held on 09/22/25. Instructions: Resume on 09/30/25.
vitamin A 2,400 mcg capsule 2,400 mcg PO HS Supplement 03/29/24
zinc sulfate 50 mg zinc (220 mg) tablet 50 mg PO HS Supplement 03/29/24
carvedilol 6.25 mg tablet 6.25 mg PO BID 09/01/25
ferrous sulfate 1 tab PO HS 09/01/25
metformin 500 mg tablet,extended release 24 hr 1,000 mg PO BID@0800,1700 Diabetes 09/01/25
tamsulosin 0.4 mg capsule 0.4 mg PO HS PRN pain/difficult urination 09/01/25
mupirocin 2 % topical ointment 1 applic intranasal BID #1 tube 09/03/25
cefadroxil 500 mg capsule 500 mg PO DAILY #7 caps 09/10/25
famotidine 20 mg tablet (Pepcid) 20 mg PO HS #30 tabs 09/10/25
gabapentin 300 mg capsule 300 mg PO HS neuropathic pain/sleep #10 caps 09/10/25
ondansetron HCl 4 mg tablet 4 mg PO Q6H PRN nausea and vomiting #30 tabs 09/10/25
tramadol 50 mg tablet 50 - 100 mg (1 - 2 x 50 mg) PO Q6H PRN moderate-severe pain #30 tabs 09/10/25
Saccharomyces boulardii 250 mg capsule (Florastor) 250 mg PO BID #1 cap 09/22/25
acetaminophen 500 mg tablet (Tylenol Extra Strength) 1,000 mg (2 x 500 mg) PO QID #0 tabs 09/22/25
aspirin 325 mg tablet 325 mg PO DAILY blood clot prevention #1 tab 09/22/25
chlorthalidone 25 mg tablet 25 mg PO QPM Antihypertensive; #0 tabs 09/22/25
docusate sodium 100 mg capsule (Colace) 100 mg PO BID stool softner #1 cap 09/22/25
losartan 100 mg tablet (Cozaar) 100 mg PO HS Blood pressure #0 tabs 09/22/25
magnesium hydroxide 400 mg/5 mL oral suspension (Milk of Magnesia) 30 ml PO HS PRN constipation #1 mL 09/22/25
sennosides 8.6 mg tablet (Senokot) 17.2 mg (2 x 8.6 mg) PO BID laxative #2 tabs 09/22/25
Home Medication Changes
mupirocin 2 % topical ointment 1 applic intranasal BID #1 tube 09/03/25
cefadroxil 500 mg capsule 500 mg PO DAILY #7 caps 09/10/25
famotidine 20 mg tablet (Pepcid) 20 mg PO HS #30 tabs 09/10/25
gabapentin 300 mg capsule 300 mg PO HS neuropathic pain/sleep #10 caps 09/10/25
ondansetron HCl 4 mg tablet 4 mg PO Q6H PRN nausea and vomiting #30 tabs 09/10/25
tramadol 50 mg tablet 50 - 100 mg (1 - 2 x 50 mg) PO Q6H PRN moderate-severe pain #30 tabs 09/10/25
Saccharomyces boulardii 250 mg capsule (Florastor) 250 mg PO BID #1 cap 09/22/25
acetaminophen 500 mg tablet (Tylenol Extra Strength) 1,000 mg (2 x 500 mg) PO QID #0 tabs 09/22/25
aspirin 325 mg tablet 325 mg PO DAILY blood clot prevention #1 tab 09/22/25
chlorthalidone 25 mg tablet 25 mg PO QPM Antihypertensive; #0 tabs 09/22/25
docusate sodium 100 mg capsule (Colace) 100 mg PO BID stool softner #1 cap 09/22/25
losartan 100 mg tablet (Cozaar) 100 mg PO HS Blood pressure #0 tabs 09/22/25
magnesium hydroxide 400 mg/5 mL oral suspension (Milk of Magnesia) 30 ml PO HS PRN constipation #1 mL 09/22/25
sennosides 8.6 mg tablet (Senokot) 17.2 mg (2 x 8.6 mg) PO BID laxative #2 tabs 09/22/25
Pending Results: No
[2025-09-22 13:41] LABS: Glucose - Point of Care 127 mg/dl (70-99)
[2025-09-22] MEDS: ULTRAM 50 MG PO (15:23)
[2025-09-22] MEDS: LANTUS 0.05 UNITS SC (15:41)
[2025-09-22] MEDS: CYANOCOBALAMIN 1000 MCG IM (15:43)
--- NOTE | 2025-09-22 17:40 | PTCARENOTE ---
Report given to Joanna on . Patient is comfortable rating his pain 2/10 in his right hip. 2L oxygen nasal cannula. Ticket to ride printed and volunteers took patient to room on .
--- NOTE | 2025-09-22 18:00 | PTCARENOTE ---
Patient received at 1755 from [facility]. Patient AAOx3, no c/o pain at present. Dinner order placed, call garcia in reach. Spouse at bedside.
[2025-09-22] MEDS: LIPITOR 40 MG PO (18:13)
[2025-09-22] MEDS: GLUCOPHAGE XR EXTENDED RELEASE 1000 MG PO (18:13)
[2025-09-22] MEDS: ASPIRIN 325 MG PO (18:13)
[2025-09-22] MEDS: FERRLECIT 110 MG IV (18:14)
[2025-09-22] MEDS: FLOMAX 0.4 MG PO (18:18)
[2025-09-22 18:24] LABS: Glucose - Point of Care 191 mg/dl (70-99)
[2025-09-22] MEDS: NOVOLOG FLEXPEN-MODERATE RESISTANCE 1 UNITS SC (18:25)
[2025-09-22] MEDS: ANCEF 5 IV (19:55)
[2025-09-22] MEDS: COLACE 100 MG PO (20:10)
[2025-09-22] MEDS: TORADOL 15 MG IV (20:10)
[2025-09-22] MEDS: BACTROBAN 2% OINTMENT 1 APPLIC NASAL (20:10)
[2025-09-22] MEDS: SENOKOT 17.2 MG PO (20:10)
[2025-09-22] MEDS: VANCOCIN 200 IV (20:55)
[2025-09-22] MEDS: DECADRON 4 MG IV (20:55)
[2025-09-22] MEDS: COREG 6.25 MG PO (20:55)
[2025-09-22] MEDS: NEURONTIN 300 MG PO (21:05)
[2025-09-22] MEDS: PEPCID 40 MG PO (21:05)
[2025-09-22 21:56] LABS: Glucose - Point of Care 197 mg/dl (70-99)
[2025-09-23] VITALS (8 sets, daily range): BP systolic 92–129; BP diastolic 42–57; PULSE 71; O2SAT 97
[2025-09-23] MEDS: ANCEF 5 IV (02:02)
[2025-09-23] MEDS: TYLENOL 650 MG PO ×5 (03:10→23:15)
[2025-09-23 07:22] LABS: Glucose - Point of Care 139 mg/dl (70-99)
[2025-09-23 08:28] LABS: Hemoglobin 8.9 g/dL (13.0-18.0)
[2025-09-23] MEDS: LANTUS 0.05 UNITS SC (08:44)
[2025-09-23] MEDS: NOVOLOG FLEXPEN-MODERATE RESISTANCE SC ×2 (08:44→18:23)
[2025-09-23] MEDS: ASPIRIN 325 MG PO (08:45)
[2025-09-23] MEDS: COLACE 100 MG PO (08:45)
[2025-09-23] MEDS: BACTROBAN 2% OINTMENT 1 APPLIC NASAL ×2 (08:45→20:10)
[2025-09-23] MEDS: GLUCOPHAGE XR EXTENDED RELEASE 1000 MG PO ×2 (08:45→18:24)
[2025-09-23] MEDS: CELEBREX 200 MG PO (08:45)
[2025-09-23] MEDS: SENOKOT 17.2 MG PO (08:45)
[2025-09-23] MEDS: DECADRON 4 MG IV (08:46)
[2025-09-23] MEDS: TORADOL 15 MG IV ×2 (08:46→20:09)
[2025-09-23] MEDS: FLOMAX 0.4 MG PO (08:46)
--- NOTE | 2025-09-23 08:50 | CM ---
Addendum entered by Jane Zayas 09/23/25 15:37:
manager pet reviewed other skilled options with patient and spouse, [facility].
Addendum entered by Jane Zayas 09/23/25 09:58:
Per physical therapy recommendations are for skilled placement, options reviewed with patient and spouse at bedside and they have selected [facility], referral sent to [facility].
Original Note:
Chart reviewed and will await updated progress notes with PT/OT for final recommendations, patient lives with spouse, Patient has been set up with [facility] outpatient therapy starting tomorrow, 09/24/25, 9am, patient's spouse drives a school bus.
Patient is currently requiring 2 liters of Oxygen, OT to see patient now.
Plan; To follow with patient progress with PT/OT for final recommendations.
[2025-09-23] MEDS: COREG PO (09:10)
[2025-09-23] MEDS: NORVASC PO (11:32)
[2025-09-23 11:57] LABS: Glucose - Point of Care 220 mg/dl (70-99)
--- NOTE | 2025-09-23 12:15 | W.PN.ORTHO ---
Today's Communication / Plan
-
Based on functional assessment, he will require SNF prior to returning home at a mod I RW level--d/c when stable
Assessment
.
Distal Motor Intact: Yes
Dressing:
Clean, dry and intact.
Assessment:
CAD/inferior wall [place] s/p overlapping JERARDO-RCA 12/2010.
HFpEF
LBBB
-TAVR 06/2021.
-continue asa, BB, statin uninterrupted
-decreased IVF rate-volume status euvolemic
-stable on tele
NIDDM-A1c 6.5.
Obesity BMI 36.9
Hx Enterococcal bacteremia
-resume Metformin + SSI and low dose Lantus coverage
-Cefadroxil ppx
Remote esophageal ulcers.
-GI ppx
Lumbar degenerative disc disease with radiculopathy.
Ambulatory dysfunction.
-fall precautions
MRSA+ nasal screen
-IV Vanco cecelia-op
-continue Mupirocin bid x total 21d
BPH
-Flomax-voiding well
Multifactorial anemia.
-iron and B12 stores stable pre-op
-+ IV ferric gluconate and IM cyancobalamin x 2 dose
-hemodynamically stable with no incisional drainage
Plan
.
Surgery / Date: R CANDY Dr Avalos 09/22/25
DVT Prophylaxis: Aspirin
Activity:
Out of bed.
PT/OT
Discharge Plan: SNF
Subjective
.
.:
Patient resting comfortably.
Vital Signs and Labs
.
Vital Signs and Labs:
Lab Results
09/23/25 07:26
09/03/25 10:56
Temp Pulse Resp BP Pulse Ox
98.3 F 65 18 115/49 93
09/23/25 11:10 09/23/25 11:10 09/23/25 11:10 09/23/25 11:10 09/23/25 11:10
Non-invasive Hgb result: 10.1
Physical Exam
-
HEENT: No pallor, cyanosis, or jaundice. Throat clear.
NECK: Supple. No JVD.
RESPIRATORY: Lungs clear to auscultation.
CVS: S1, S2 normal. RRR.� No murmur, rub or gallop.
ABDOMEN: Soft, non-tender. No distension. BS+/normal.
EXTREMITIES: strength equal, no calf pain with palpation
FIELD OPERATIONS SUPERVISOR: AOx3. No focal deficits. ornamental painter grossly intact
[2025-09-23] MEDS: NOVOLOG FLEXPEN-MODERATE RESISTANCE 3 UNITS SC (12:46)
[2025-09-23] MEDS: FERRLECIT 110 MG IV (12:47)
[2025-09-23] MEDS: TYLENOL PO (16:00)
[2025-09-23 17:49] LABS: Glucose - Point of Care 149 mg/dl (70-99)
[2025-09-23] MEDS: LIPITOR 40 MG PO (18:24)
[2025-09-23] MEDS: SENOKOT PO (20:10)
[2025-09-23] MEDS: COLACE PO (20:10)
[2025-09-23] MEDS: COREG 6.25 MG PO (20:10)
[2025-09-23] MEDS: NEURONTIN 300 MG PO (21:00)
[2025-09-23] MEDS: PEPCID 40 MG PO (21:00)
[2025-09-23 21:44] LABS: Glucose - Point of Care 192 mg/dl (70-99)
[2025-09-24] VITALS (7 sets, daily range): BP systolic 105–127; BP diastolic 52–62; PULSE 73
[2025-09-24] MEDS: TYLENOL 650 MG PO ×6 (03:00→23:22)
[2025-09-24 06:20] LABS: Hematocrit 25.3 % (39.0-52.0); Hemoglobin 8.3 g/dL (13.0-18.0)
[2025-09-24 07:38] LABS: Glucose - Point of Care 126 mg/dl (70-99)
[2025-09-24] MEDS: GLUCOPHAGE XR EXTENDED RELEASE 1000 MG PO ×2 (08:22→17:07)
[2025-09-24] MEDS: NOVOLOG FLEXPEN-MODERATE RESISTANCE SC ×3 (08:22→17:06)
[2025-09-24] MEDS: FLOMAX 0.4 MG PO (08:23)
[2025-09-24] MEDS: ASPIRIN 325 MG PO (08:23)
[2025-09-24] MEDS: CELEBREX 200 MG PO (08:23)
[2025-09-24] MEDS: NORVASC PO (08:23)
[2025-09-24] MEDS: LANTUS 0.05 UNITS SC (08:24)
[2025-09-24] MEDS: COREG PO (08:24)
[2025-09-24] MEDS: COLACE PO ×2 (08:24→20:20)
--- NOTE | 2025-09-24 08:31 | CM ---
Patient has been accepted at [facility] and there is a bed available for patient tomorrow, 09/25/25
[facility]
Report [phone]
--- NOTE | 2025-09-24 09:38 | W.PN.ORTHO ---
Today's Communication / Plan
-
Trend Hgb.
Plan for d/c tomorrow if remaining clinically stable.
Assessment
.
Distal Motor Intact: Yes
Dressing:
Clean, dry and intact.
Assessment:
R hip OA s/p R CANDY w/ Dr Avalos 09/22/25
DVT prophylaxis - ASA, b/l venous foot pumps
CAD/inferior wall [place] s/p overlapping JERARDO-RCA 12/2010
HFpEF
LBBB
-TAVR 06/2021.
- continue asa, BB, statin uninterrupted
- decreased IVF rate - volume status euvolemic
- rhythm stable on tele
NIDDM - A1c 6.5.
Obesity BMI 36.9
Hx Enterococcal bacteremia
- resume Metformin + SSI AC and low dose Lantus coverage
- Cefadroxil ppx
Remote esophageal ulcers.
- GI ppx
Lumbar degenerative disc disease with radiculopathy
Ambulatory dysfunction.
- fall precautions
MRSA+ nasal screen
- IV Vanco cecelia-op
- continue Mupirocin bid x total 21d
BPH
- voiding well w/ Flomax daily post-op
Multifactorial anemia.
- iron and B12 stores stable pre-op
- + IV ferric gluconate and IM cyancobalamin x 2 dose to compensate for blood loss/depletion of reserve
- hemodynamically stable with no incisional drainage
- Repeat H&H in AM
Plan
.
Surgery / Date: Memo caballero/ Dr Avalos 09/22/25
DVT Prophylaxis: Aspirin
Activity:
Out of bed.
PT/OT
Discharge Plan: SNF
Subjective
.
.:
Patient resting comfortably in his chair.
R hip pain tolerable w/ minimal pain meds overnight.
Denies any new acute complaints.
Plan for [place] [facility] tomorrow.
Vital Signs and Labs
.
Vital Signs and Labs:
Lab Results
09/24/25 05:44
09/03/25 10:56
Temp Pulse Resp BP Pulse Ox
98.6 F 70 16 108/52 95
09/24/25 07:40 09/24/25 08:23 09/24/25 07:40 09/24/25 08:23 09/24/25 08:28
Non-invasive Hgb result: 7.9
Physical Exam
-
HEENT: No pallor, cyanosis, or jaundice. Throat clear.
NECK: Supple. No JVD.
RESPIRATORY: Lungs clear to auscultation.
CVS: S1, S2 normal. RRR.�
ABDOMEN: Soft, non-tender. No distension. Obese.
EXTREMITIES: Strength equal, no calf pain with palpation/dorsiflexion. Calves soft.
PACKAGING INSPECTOR: AOx3. No focal deficits. slubber runner grossly intact
[2025-09-24 11:47] LABS: Glucose - Point of Care 145 mg/dl (70-99)
[2025-09-24] MEDS: FERRLECIT 110 MG IV (13:05)
[2025-09-24 16:59] LABS: Glucose - Point of Care 108 mg/dl (70-99)
[2025-09-24] MEDS: LIPITOR 40 MG PO (17:08)
[2025-09-24] MEDS: COREG 6.25 MG PO (20:20)
[2025-09-24 21:36] LABS: Glucose - Point of Care 114 mg/dl (70-99)
[2025-09-24] MEDS: PEPCID 40 MG PO (21:47)
[2025-09-24] MEDS: NEURONTIN 300 MG PO (21:47)
[2025-09-25] VITALS (10 sets, daily range): BP systolic 120–152; BP diastolic 53–71
[2025-09-25] MEDS: TYLENOL 650 MG PO ×5 (03:05→20:04)
[2025-09-25 07:09] LABS: Hematocrit 25.5 % (39.0-52.0); Hemoglobin 8.3 g/dL (13.0-18.0)
--- NOTE | 2025-09-25 08:06 | CM ---
Bed is available at [facility] today for skilled placement. IMM completed.
[facility]
Report [phone]
[2025-09-25 08:07] LABS: Glucose - Point of Care 93 mg/dl (70-99)
[2025-09-25] MEDS: NOVOLOG FLEXPEN-MODERATE RESISTANCE SC ×2 (09:06→17:20)
[2025-09-25] MEDS: ASPIRIN 325 MG PO (09:06)
[2025-09-25] MEDS: GLUCOPHAGE XR EXTENDED RELEASE 1000 MG PO ×2 (09:06→16:56)
[2025-09-25] MEDS: CELEBREX 200 MG PO (09:07)
[2025-09-25] MEDS: COLACE PO (09:07)
[2025-09-25] MEDS: NORVASC PO (09:08)
[2025-09-25] MEDS: FLOMAX 0.4 MG PO (09:08)
[2025-09-25] MEDS: COREG 6.25 MG PO ×2 (09:08→20:04)
[2025-09-25] MEDS: LANTUS 0.05 UNITS SC (09:09)
[2025-09-25 11:14] LABS: Glucose - Point of Care 160 mg/dl (70-99)
[2025-09-25] MEDS: NOVOLOG FLEXPEN-MODERATE RESISTANCE 1 UNITS SC (11:34)
--- NOTE | 2025-09-25 12:00 | W.PN.ORTHO ---
Today's Communication / Plan
-
d/c am if stable
Assessment
.
Distal Motor Intact: Yes
Dressing:
Clean, dry and intact.
Assessment:
POD#3:
Episode of pre-syncope in bathroom s/p BM-likely vasovagal-reported SOB with tremor and appears very anxious--given anemia and potential for underlying myelodysplasia, ability for hgb to recover is low likelihood
--will check EKG, troponin, add anti-anxiety med -in addition, given worsening anemia and risk of demand ischemia with exertion/CAD --will transfuse 2UPRBCs-monitor hgb and delay d/c until am
--IV Lasix b/w units due to HFpEF
CAD/inferior wall [place] s/p overlapping JERARDO-RCA 12/2010.
HFpEF
LBBB
-TAVR 06/2021.
-continue asa, BB, statin uninterrupted
-decreased IVF rate-volume status euvolemic
-stable on tele
NIDDM-A1c 6.5.
Obesity BMI 36.9
Hx Enterococcal bacteremia
-resume Metformin + SSI and low dose Lantus coverage -d/c insulin at [facility]-sugars well controlled
-Cefadroxil ppx
Remote esophageal ulcers.
-GI ppx
Lumbar degenerative disc disease with radiculopathy.
Ambulatory dysfunction.
-fall precautions
MRSA+ nasal screen
-IV Vanco cecelia-op
-continue Mupirocin bid x total 21d
BPH
-Flomax-voiding well
Chronic anemia
-multifactorial etiology. -iron and B12 stores stable pre-op
-+ IV ferric gluconate and IM cyancobalamin x 2 dose
-hemodynamically stable with no incisional drainage
-probable myeloproliferative disorder and advised hematology eval when recovered
Plan
.
Surgery / Date: R CANDY w/ Dr Avalos 09/22/25
DVT Prophylaxis: Aspirin
Activity:
Out of bed.
PT/OT
Discharge Plan: SNF
Subjective
.
.:
shaky .
Vital Signs and Labs
.
Vital Signs and Labs:
Lab Results
09/25/25 06:22
09/03/25 10:56
Temp Pulse Resp BP Pulse Ox
98.6 F 74 16 130/55 96
09/25/25 11:05 09/25/25 11:05 09/25/25 11:05 09/25/25 11:05 09/25/25 11:05
Non-invasive Hgb result: 7.9
Physical Exam
-
HEENT: poor pallor, cyanosis, or jaundice. Throat clear.
NECK: Supple. No JVD.
RESPIRATORY: Lungs clear to auscultation.
CVS: S1, S2 normal. RRR.� No murmur, rub or gallop.
ABDOMEN: Soft, non-tender. No distension. BS+/normal.
EXTREMITIES: strength equal, no calf pain with palpation
SCIENCE INTERPRETER: AOx3. No focal deficits. chef de froid grossly intact
[2025-09-25] MEDS: FERRLECIT 110 MG IV (13:25)
--- NOTE | 2025-09-25 16:43 | PTCARENOTE ---
Pt taken to bathroom for BM and after sitting on the toilet reported feeling dizzy and that he was seeing 'fuzzy and white' in front of him. Pt appears pale and feels SOB. Pt BP 152/71, HR 72 and 99% on RA. Pt safely ambulated back to bed. After
lying in bed, pt reports feeling better and seeing more clearly. Pt reports feeling very anxious. Ortho PADella, notified and seen pt at bedside. Pt placed back on telemetry, 2 units PRBCs ordered with lasix in between units, EKG, labs and anti
anxiety meds ordered. Bed locked and in lowest position. Call garcia within reach. Care ongoing.
[2025-09-25] MEDS: VALIUM 2 MG PO (16:57)
[2025-09-25 17:03] LABS: Glucose - Point of Care 114 mg/dl (70-99)
[2025-09-25 17:13] LABS: ALT (SGPT) 16 U/L (0-50); AST (SGOT) 26 U/L (17-59); Albumin 3.4 g/dl (3.5-5.0); Alkaline Phosphatase 61 U/L (38-126); Blood Urea Nitrogen 36 mg/dl (9-20); Calcium 9.0 mg/dl (8.4-10.2); Carbon Dioxide 21 mmol/L (22-30); Chloride 107 mmol/L (98-107); Estimated Creatinine Clearance 58 ml/min; Glucose 99 mg/dl (70-99); Potassium 4.6 mmol/L (3.5-5.1); Sodium 138 mmol/L (135-145); Total Protein 6.1 g/dl (6.3-8.2); eGFR 59.26
[2025-09-25] MEDS: LIPITOR 40 MG PO (18:12)
[2025-09-25 21:16] LABS: Troponin I 0.013 ng/ml
[2025-09-25] MEDS: NEURONTIN 300 MG PO (21:24)
[2025-09-25] MEDS: PEPCID 40 MG PO (21:24)
[2025-09-25 21:29] LABS: Glucose - Point of Care 131 mg/dl (70-99)
[2025-09-25] MEDS: TYLENOL PO (23:18)
[2025-09-26] VITALS (10 sets, daily range): BP systolic 107–179; BP diastolic 51–88; BMI 36.1
[2025-09-26] MEDS: LASIX 40 MG IV ×2 (01:45→12:51)
[2025-09-26] MEDS: TYLENOL PO ×2 (03:03→12:14)
--- NOTE | 2025-09-26 03:20 | PTCARENOTE ---
Prior to giving 2nd unit of PRBCs, ans after giving a dose of IV lasix. Auscultated pt's lungs to ensure there was no fluid build up given history of CHF. Inspiratory & expiratory wheezes heard. Pt with no complaints of SOB. TT Reta JENNINGS and came
to bedside. Instructed that it was okay to administer 2nd unit of PRBCs slowly. Educated pt on when to call for help/signs and symptoms of fluid buildup. Care ongoing.
[2025-09-26] MEDS: ULTRAM 50 MG PO (05:55)
[2025-09-26] MEDS: CELEBREX 200 MG PO (08:27)
[2025-09-26] MEDS: TYLENOL 650 MG PO (08:27)
[2025-09-26] MEDS: ASPIRIN 325 MG PO (08:27)
[2025-09-26] MEDS: GLUCOPHAGE XR EXTENDED RELEASE 1000 MG PO (08:27)
[2025-09-26] MEDS: NORVASC 2.5 MG PO (08:27)
[2025-09-26] MEDS: COREG 6.25 MG PO (08:27)
[2025-09-26] MEDS: FLOMAX 0.4 MG PO (08:27)
[2025-09-26] MEDS: NOVOLOG FLEXPEN-MODERATE RESISTANCE SC ×2 (08:29→12:44)
[2025-09-26 08:30] LABS: Glucose - Point of Care 128 mg/dl (70-99)
--- NOTE | 2025-09-26 08:45 | CM ---
Plan is for skilled placement at [facility]. Patient will need ambulance transport to [facility].
[facility]
Report [phone]
[2025-09-26 08:56] LABS: Troponin I 0.020 ng/ml
[2025-09-26 08:57] LABS: Hemoglobin 10.6 g/dL (13.0-18.0)
--- NOTE | 2025-09-26 11:43 | PN.CDI ---
CDI
- -
CDI:
Physician Documentation Request
Admit Date: 09/22/25 09:52
Dear Della Alicia,
Patient is s/p Right total hip arthroplasty.
Patient has a history of multifactorial anemia.
Progress note states '+ IV ferric gluconate and IM cyancobalamin x 2 dose to compensate for blood loss/depletion of reserve'
Patient has received 2 units of RBC.
Could you clarify which of the following is the most likely type of anemia you are evaluating, monitoring and/or treating?
Acute blood loss anemia with baseline chronic anemia
Chronic anemia only
Other
Use of terms such as suspected, likely, concern for, or probable (associated with a specific diagnosis that is being evaluated, monitored, or treated as if it exists) are acceptable and can be coded in the inpatient setting, when documented at the
time of discharge.
Thank you,
Melvi Francis RN BSN
CDI Specialist
tiger text
Please use your independent medical judgment in providing your response.
[2025-09-26 12:41] LABS: Glucose - Point of Care 142 mg/dl (70-99)
--- NOTE | 2025-09-26 13:57 | W.PN.ORTHO ---
Today's Communication / Plan
-
d/c
Assessment
.
Distal Motor Intact: Yes
Dressing:
Clean, dry and intact.
Assessment:
POD#3-4
Episode of pre-syncope in bathroom s/p BM-likely vasovagal-reported SOB with tremor and appears very anxious--given anemia and potential for underlying myelodysplasia, ability for hgb to recover is low likelihood
--EKG unchanged and mild elevation in troponin as anticipated-no CP, given worsening anemia and risk of demand ischemia with exertion/CAD --2U PRBCs transfused + Lasix with hgb much improved as well as symptoms
--dose IV Lasix x1 w/ Midodrine prior to d/c
Chronic anemia
-multifactorial etiology. -iron and B12 stores stable pre-op
-+ IV ferric gluconate and IM cyancobalamin x 2 dose
-hemodynamically stable with no incisional drainage
-probable myeloproliferative disorder and advised hematology eval when recovered
-hgb improved s/p 2UPRBCs
CAD/inferior wall [place] s/p overlapping JERARDO-RCA 12/2010.
HFpEF
LBBB
-TAVR 06/2021.
-continue asa, BB, statin uninterrupted
-decreased IVF rate-volume status euvolemic
-stable on tele
NIDDM-A1c 6.5.
Obesity BMI 36.9
Hx Enterococcal bacteremia
-resume Metformin + SSI and low dose Lantus coverage -d/c insulin at [facility]-sugars well controlled
-Cefadroxil ppx
Remote esophageal ulcers.
-GI ppx
Lumbar degenerative disc disease with radiculopathy.
Ambulatory dysfunction.
-fall precautions
MRSA+ nasal screen
-IV Vanco cecelia-op
-continue Mupirocin bid x total 21d
BPH
-Flomax-voiding well
Plan
.
Surgery / Date: R CANDY w/ Dr Avalos 09/22/25
DVT Prophylaxis: Aspirin
Activity:
Out of bed.
PT/OT
Discharge Plan: SNF
Subjective
.
.:
Patient resting comfortably.
Vital Signs and Labs
.
Vital Signs and Labs:
Lab Results
09/26/25 08:14
09/25/25 16:41
Temp Pulse Resp BP Pulse Ox
98.4 F 74 18 137/56 94
09/26/25 11:31 09/26/25 11:31 09/26/25 11:31 09/26/25 11:31 09/26/25 11:31
Non-invasive Hgb result: 7.9
Physical Exam
-
HEENT: No pallor, cyanosis, or jaundice. Throat clear.
NECK: Supple. No JVD.
RESPIRATORY: Lungs clear to auscultation.
CVS: S1, S2 normal. RRR.� No murmur, rub or gallop.
ABDOMEN: Soft, non-tender. No distension. BS+/normal.
EXTREMITIES: strength equal, no calf pain with palpation
PEOPLESOFT FINANCIAL DEVELOPER: AOx3. No focal deficits. piano accompanist grossly intact
== END 2025-09-26 15:08 | DRG 470 ==
LOC: 2 SOUTH 09:52
PROVIDERS: Physician Assistant; Physician Assistant Medical; ADMITTING PHYSICIAN Specialist; FAMILY PHYSICIAN Family Medicine; REFERRING PHYSICIAN Internal Medicine Interventional Cardiology
PROC: 0SR90JA Replacement of Right Hip Joint with Synthetic Substitute, Uncemented, Open Approach (ICD-10-PCS; 2025-09-22)
PROC: 30233N1 Transfusion of Nonautologous Red Blood Cells into Peripheral Vein, Percutaneous Approach (ICD-10-PCS; 2025-09-25)
DX: M16.11 Unilateral primary osteoarthritis, right hip (principal); I13.0 Hypertensive heart and chronic kidney disease with heart failure and stage 1 through stage 4 chronic kidney disease, or unspecified chronic kidney disease; I50.32 Chronic diastolic (congestive) heart failure; E66.9 Obesity, unspecified; Z68.36 Body mass index [BMI] 36.0-36.9, adult; N18.9 Chronic kidney disease, unspecified; E78.00 Pure hypercholesterolemia, unspecified; I25.2 Old myocardial infarction; I25.10 Atherosclerotic heart disease of native coronary artery without angina pectoris; I44.7 Left bundle-branch block, unspecified; Z95.2 Presence of prosthetic heart valve; E11.22 Type 2 diabetes mellitus with diabetic chronic kidney disease; Z87.19 Personal history of other diseases of the digestive system; K57.30 Diverticulosis of large intestine without perforation or abscess without bleeding; Z87.442 Personal history of urinary calculi; K76.0 Fatty (change of) liver, not elsewhere classified; M51.16 Intervertebral disc disorders with radiculopathy, lumbar region; Z85.820 Personal history of malignant melanoma of skin; N40.1 Benign prostatic hyperplasia with lower urinary tract symptoms; Z98.41 Cataract extraction status, right eye; Z98.42 Cataract extraction status, left eye; D63.1 Anemia in chronic kidney disease; D50.9 Iron deficiency anemia, unspecified; D51.9 Vitamin B12 deficiency anemia, unspecified; F41.9 Anxiety disorder, unspecified; Z95.5 Presence of coronary angioplasty implant and graft
CPT/HCPCS: 36415; 73502; 80053; 82607; 82728; 82746; 82962; 83036; 83540; 83550; 83880; 84484; 85014; 85018; 85027; 85045; 86850; 86900; 86901; 86920; 87070; 87147; 93005; 97116; 97163; 97166; 97530; 97535; C1713; C1776; J2916; P9016

== ENCOUNTER → 2025-09-29 10:23 | Outpatient (REF) | payer OTHER, MEDICARE, BC, SELFPAY ==
[2025-09-29 10:55] LABS: Hematocrit 34.1 % (39.0-52.0); Hemoglobin 11.0 g/dL (13.0-18.0); Mean Corp Hgb Conc. 32.3 g/dL (33.0-37.0); Mean Corpuscular Volume 93.2 fL (80.0-94.0); Nucleated Red Blood Cells % 0 % (-); Platelet Count 240 10^3/uL (130-400); Red Cell Dist. Width 14.6 % (11.5-14.5)
[2025-09-29 12:09] LABS: Blood Urea Nitrogen 21 mg/dl (9-20); Calcium 9.5 mg/dl (8.4-10.2); Carbon Dioxide 27 mmol/L (22-30); Chloride 105 mmol/L (98-107); Glucose 117 mg/dl (70-99); Potassium 4.4 mmol/L (3.5-5.1); Sodium 139 mmol/L (135-145); eGFR > 60.00
== END ==
LOC: OLABP 10:23
PROVIDERS: ATTENDING PHYSICIAN Family Medicine
DX: Z47.1 Aftercare following joint replacement surgery (principal); M16.11 Unilateral primary osteoarthritis, right hip; E11.9 Type 2 diabetes mellitus without complications; I25.10 Atherosclerotic heart disease of native coronary artery without angina pectoris; I50.9 Heart failure, unspecified; I35.9 Nonrheumatic aortic valve disorder, unspecified; E66.01 Morbid (severe) obesity due to excess calories; M51.16 Intervertebral disc disorders with radiculopathy, lumbar region; Z22.322 Carrier or suspected carrier of Methicillin resistant Staphylococcus aureus; D64.9 Anemia, unspecified
CPT/HCPCS: 36415; 80048; 85025

== ENCOUNTER → 2025-10-06 09:59 | Outpatient (REF) | payer OTHER, MEDICARE, BC, SELFPAY ==
[2025-10-06 11:12] LABS: Hematocrit 33.9 % (39.0-52.0); Hemoglobin 11.1 g/dL (13.0-18.0); Mean Corp Hgb Conc. 32.7 g/dL (33.0-37.0); Mean Corpuscular Volume 93.4 fL (80.0-94.0); Nucleated Red Blood Cells % 0 % (-); Platelet Count 250 10^3/uL (130-400); Red Cell Dist. Width 14.1 % (11.5-14.5)
== END ==
LOC: OLABP 09:59
PROVIDERS: ATTENDING PHYSICIAN Family Medicine
DX: Z47.1 Aftercare following joint replacement surgery (principal); M16.11 Unilateral primary osteoarthritis, right hip; E11.9 Type 2 diabetes mellitus without complications; I25.10 Atherosclerotic heart disease of native coronary artery without angina pectoris; I50.9 Heart failure, unspecified; I35.0 Nonrheumatic aortic (valve) stenosis; E66.01 Morbid (severe) obesity due to excess calories; M51.16 Intervertebral disc disorders with radiculopathy, lumbar region; Z22.322 Carrier or suspected carrier of Methicillin resistant Staphylococcus aureus; D64.9 Anemia, unspecified
CPT/HCPCS: 36415; 85025